=== PATIENT | female | born 1955 | race Caucasian/White ===

== ENCOUNTER → 2017-04-28 | Outpatient (CLI) | payer OTHER ==
[~2017-04-28] MED LIST: ATOR-22 PO; B-COTAB18 PO; DOXY100T PO; GABA-113 PO; GABA1CAP5 PO; LSN/10125 PO; MULT-506 PO; SERT-234 PO; THIA100T11 PO
[2017-04-28 10:57] LABS: BASO % 0.5 %; BASO ABS # 0.05 K/uL (0-0.2); COMPLETE YES; EOS % 6.9 %; HEMATOCRIT 40.1 % (37-47); IG% 0.3 %; LYMPH % 15.9 %; LYMPH ABS # 1.59 K/uL (1.2-3.4); MEAN CELL VOLUME 96.4 fL (80-100); MEAN CORPUSCULAR HEMOGLOBIN 32.5 pg (25-34); MEAN CORPUSCULAR HGB CONC 33.7 g/dl (32-36); MEAN PLATELET VOLUME 10.7 fL (7.4-10.4); MONO % 7.1 %; NEUT % 69.3 %; PLATELET COUNT 231 K/uL (130-400); RED BLOOD COUNT 4.16 M/uL (4.2-5.4); WHITE BLOOD COUNT 10.01 K/uL (4.8-10.8)
[2017-04-28 11:05] LABS: ESTIMATED AVERAGE GLUCOSE 217 mg/dl; HA1C FLAG Normal (Normal)
[2017-04-28 11:34] LABS: ALT/SGPT 58 U/L (12-78); AST/SGOT 30 U/L (15-37); BLOOD UREA NITROGEN 22 mg/dl (7-18); BUN/CREATININE RATIO 24.6 (10-20); CALCIUM 8.5 mg/dl (8.5-10.1); CARBON DIOXIDE 29 mmol/L (21-32); CHLORIDE 101 mmol/L (98-107); CHOLESTEROL 228 mg/dl (0-200); CREATININE 0.91 mg/dl (0.60-1.20); GLUCOSE 228 mg/dl (70-99); POTASSIUM 4.4 mmol/L (3.5-5.1); SODIUM 138 mmol/L (136-145); TRIGLYCERIDES 242 mg/dl (0-150); VERY LOW DENSITY LIPOPROT CALC 48 mg/dl
[2017-04-28 11:44] LABS: ALB/GLOB RATIO 1.5 (0.9-2); ALKALINE PHOSPHATASE 96 U/L (45-117); CHOLESTEROL/HDL RATIO 3.9; HDL CHOLESTEROL 59 mg/dl; LDL CHOLESTEROL CALCULATED 121 mg/dl; TOTAL IRON BINDING CAPACITY 343 mcg/dl (250-450)
== END | disposition home or self-care (01) ==
LOC: C.LAB1850 10:04
PROVIDERS: ATTEND Physician Assistant
DX: I10 Essential (primary) hypertension (principal)

== ENCOUNTER → 2017-05-21 | Outpatient (CLI) | payer OTHER ==
--- NOTE | 2017-05-23 08:13 | MAMMOGRAPHY REPORT ---
BILATERAL DIGITAL SCREENING MAMMOGRAM TOMOSYNTHESIS WITH CAD: 05/21/2017 CLINICAL HISTORY: Routine screening. Patient has no complaints. TECHNIQUE: Breast tomosynthesis in addition to standard 2D mammography was performed. Current study was also evaluated with a Computer Aided Detection (CAD) system. COMPARISON: Comparison is made to exams dated: 09/23/2011 mammogram, 09/11/2010 mammogram - [facility], 02/24/2007, 02/24/2007 mammogram, and 12/28/2004 mammogram - [facility] nter. BREAST COMPOSITION: There are scattered areas of fibroglandular density in both breasts. FINDINGS: There are numerous benign-appearing round, punctate and coarse calcifications in the breast . Stable nodularity bilaterally. No suspicious spiculated or irregular mass, architectural distorti on or cluster of new, suspicious microcalcifications is seen. IMPRESSION: ACR BI-RADS CATEGORY 1: NEGATIVE There is no mammographic evidence of malignancy. A 1 year screening mammogram is recommended. The pa tient will receive written notification of the results. Approximately 10% of breast cancers are not detected with mammography. A negative mammographic report should not delay biopsy if a clinically suggestive mass is present. Lynda Murphy M.D. ay/:05/21/2017 15:41:36 Patternator: Mona Gamez, [facility] letter sent: Normal 1/2 BI-RADS Code: ACR BI-RADS Category 1: Negative
== END | disposition home or self-care (01) ==
LOC: C.MAMM 11:36
PROVIDERS: ATTEND Physician Assistant
DX: Z12.31 Encounter for screening mammogram for malignant neoplasm of breast (principal)

== ENCOUNTER → 2017-08-01 | Outpatient (CLI) | payer OTHER ==
[2017-08-01 12:52] LABS: HEMOGLOBIN A1C 8.2 % (4.5-5.6)
[2017-08-01 13:11] LABS: ALBUMIN 3.7 gm/dl (3.4-5.0); ALT/SGPT 45 U/L (12-78); AST/SGOT 25 U/L (15-37); BLOOD UREA NITROGEN 32 mg/dl (7-18); CALCIUM 8.5 mg/dl (8.5-10.1); CARBON DIOXIDE 29 mmol/L (21-32); CREATININE 1.44 mg/dl (0.60-1.20); GLUCOSE 235 mg/dl (70-99); SODIUM 134 mmol/L (136-145)
[2017-08-01 13:14] LABS: ALKALINE PHOSPHATASE 81 U/L (45-117); INFLUENZA B ANTIGEN Neg for Influ B (NEG); TOTAL PROTEIN 7.2 gm/dl (6.4-8.2)
== END | disposition home or self-care (01) ==
LOC: C.LAB 11:26
PROVIDERS: ATTEND Physician Assistant
DX: E11.9 Type 2 diabetes mellitus without complications (principal); R05 Cough

== ENCOUNTER 2017-08-25 14:01 | Emergency (ER) | payer OTHER ==
[~2017-08-25] VITALS: Ht 157.5 cm; Wt 93.3 kg
[~2017-08-25 14:01] MED LIST changes: +GABA-1220 PO; -GABA1CAP5 PO
[2017-08-25 14:06] VITALS: TEMP 37.3; Ht 157.5 cm; Wt 93.3 kg
--- NOTE | 2017-08-25 14:38 | EMERGENCY ROOM VISIT NOTE ---
History First contact with patient: 14:28 Chief Complaint: FLU LIKE SX Stated Complaint: FEVER, HEADACHE, LOWER BACK PAIN, SHAKING History of Present Illness The patient is a 61 year old female who presents to the Emergency Room with complaints of fever, headache x 1 day. Her symptoms started early this morning. She took some ibuprofen and woke up later in the morning still having a fever, headache and low back pain. She has doxycycline on hand for acne and took a dose this morning. She seemed to feel better; was able to go to the gym and work this morning. At around 1 pm, she started having chills. She went to a couple of urgent care but was not able to be seen, so she came to the ED. She currently denies shortness of breath, vomiting, diarrhea, URTI symptoms. She was recently diagnosed with diabetes and is on Glucophage. Her most recent A1c was 8.2- she will be seeing her PCP soon for follow up. Review of Systems See above for pertinent positives & negatives. A total of 10 systems reviewed and were otherwise negative. Past Medical/Surgical History Medical Problems: (1) Alcohol abuse (2) Alcohol dependence (3) Alcohol withdrawal syndrome (4) Benign hypertension (5) Benzodiazepine overdose (6) Depression (7) Drug overdose (8) Hyperglycemia (9) Hyperlipidemia Social History Smoking Status: Never Smoker Alcohol Use: heavy Drug Use: other Marital Status: single Housing Status: lives alone Occupation Status: unemployed Current/Historical Medications Scheduled Atorvastatin (Lipitor), 20 MG PO QAM B-Complex Vitamins (Vitamin B Complex), 1 TAB PO Q2D Cephalexin Monohydrate (Keflex), 500 MG PO BID Gabapentin (Neurontin), 300 MG PO TID Gabapentin (Neurontin), 1 CAP PO TID Hctz/Lisinopril (Lisinopril/Hctz 10/12.5 Mg), 1 TAB PO QAM Multivitamin (Multivitamin), 1 TAB PO QAM Sertraline (Zoloft), 200 MG PO QAM Thiamine Hcl (Vitamin B-1), 100 MG PO QAM Scheduled PRN Doxycycline Hyclate (Doxycycline Hyclate), 1 TAB PO BID PRN for ACNE TX Ibuprofen (Advil), 400 MG PO Q6 PRN for Headache or Pain Physical Exam Vital Signs Date Time Temp Pulse Resp B/P (MAP) Pulse Ox O2 Delivery O2 Flow Rate FiO2 08/25/17 17:58 95 18 128/73 95 08/25/17 16:13 88 18 139/70 96 Room Air 08/25/17 14:06 37.3 126 18 124/75 96 Room Air Physical Exam GENERAL: Patient is awake alert in no acute distress patient is resting comfortably EYES: The conjunctivae are clear. The pupils are round and reactive. EARS, NOSE, MOUTH AND THROAT: The nose is without any evidence of any deformity. Mucous membranes are moist tongue is midline NECK: The neck is nontender and supple. RESPIRATORY: Normal respiratory effort is noted there is no evidence of wheezing rhonchi or rales CARDIOVASCULAR: Tachycardic, no murmurs rubs or gallops normal S1 normal S2 GASTROINTESTINAL: The abdomen is soft. Bowel sounds are present in all quadrants. Abdomen is nontender PELVIS: The Pelvis is stable. No tenderness to palpation is noted. BACK: No CVA tenderness MUSCULOSKELETAL/EXTREMITIES: There is no evidence of gross deformity full range of motion is noted in the hips and shoulders SKIN: There is no obvious evidence of any rash. Medical Decision & Procedures Laboratory Results 08/25/17 15:13 Red Blood Count 3.56, Mean Corpuscular Volume 94.1, Mean Corpuscular Hemoglobin 32.3, Mean Corpuscular Hemoglobin Concent 34.3, Mean Platelet Volume 10.7, Neutrophils (%) (Auto) 87.2, Lymphocytes (%) (Auto) 4.1, Monocytes (%) (Auto) 7.1, Eosinophils (%) (Auto) 0.9, Basophils (%) (Auto) 0.2, Neutrophils # (Auto) 9.52, Lymphocytes # (Auto) 0.45, Monocytes # (Auto) 0.77, Eosinophils # (Auto) 0.10, Basophils # (Auto) 0.02 08/25/17 15:13 Test 08/25/17 14:13 08/25/17 15:03 08/25/17 15:13 08/25/17 16:20 Bedside Glucose 290 mg/dl (70-90) Influenza Type A Antigen Neg for Influ A (NEG) Influenza Type B Antigen Neg for Influ B (NEG) White Blood Count 10.92 K/uL (4.8-10.8) Red Blood Count 3.56 M/uL (4.2-5.4) Hemoglobin 11.5 g/dL (12.0-16.0) Hematocrit 33.5 % (37-47) Mean Corpuscular Volume 94.1 fL (80-100) Mean Corpuscular Hemoglobin 32.3 pg (25-34) Mean Corpuscular Hemoglobin Concent 34.3 g/dl (32-36) Platelet Count 160 K/uL (130-400) Mean Platelet Volume 10.7 fL (7.4-10.4) Neutrophils (%) (Auto) 87.2 % Lymphocytes (%) (Auto) 4.1 % Monocytes (%) (Auto) 7.1 % Eosinophils (%) (Auto) 0.9 % Basophils (%) (Auto) 0.2 % Neutrophils # (Auto) 9.52 K/uL (1.4-6.5) Lymphocytes # (Auto) 0.45 K/uL (1.2-3.4) Monocytes # (Auto) 0.77 K/uL (0.11-0.59) Eosinophils # (Auto) 0.10 K/uL (0-0.5) Basophils # (Auto) 0.02 K/uL (0-0.2) RDW Standard Deviation 43.1 fL (36.4-46.3) RDW Coefficient of Variation 12.7 % (11.5-14.5) Immature Granulocyte % (Auto) 0.5 % Immature Granulocyte # (Auto) 0.06 K/uL (0.00-0.02) Anion Gap 11.0 mmol/L (3-11) Est Creatinine Clear Calc Drug Dose 33.6 ml/min Estimated GFR () 33.0 Estimated GFR (Non- 28.5 BUN/Creatinine Ratio 16.1 (10-20) Calcium Level 8.6 mg/dl (8.5-10.1) Total Bilirubin 0.7 mg/dl (0.2-1) Aspartate Amino Transf (AST/SGOT) 13 U/L (15-37) Alanine Aminotransferase (ALT/SGPT) 29 U/L (12-78) Alkaline Phosphatase 75 U/L (45-117) Total Protein 6.7 gm/dl (6.4-8.2) Albumin 3.2 gm/dl (3.4-5.0) Globulin 3.5 gm/dl (2.5-4.0) Albumin/Globulin Ratio 0.9 (0.9-2) Urine Color YELLOW Urine Appearance CLOUDY (CLEAR) Urine pH 5.0 (4.5-7.5) Urine Specific [place] 1.020 (1.000-1.030) Urine Protein 1+ (NEG) Urine Glucose (UA) 3+ (NEG) Urine Ketones TRACE (NEG) Urine Occult Blood 2+ (NEG) Urine Nitrite NEG (NEG) Urine Bilirubin NEG (NEG) Urine Urobilinogen NEG (NEG) Urine Leukocyte Esterase SMALL (NEG) Urine WBC (Auto) 10-30 /hpf (0-5) Urine RBC (Auto) 5-10 /hpf (0-4) Urine Hyaline Casts (Auto) 10-30 /lpf (0-5) Urine Epithelial Cells (Auto) 5-10 /lpf (0-5) Urine Bacteria (Auto) 4+ (NEG) Medications Administered Medications (Trade) Dose Ordered Sig/Miranda Route Start Time Stop Time Status Last Admin Dose Admin Acetaminophen (Tylenol Tab) 650 mg NOW STAT PO 08/25/17 14:53 08/25/17 14:55 DC 08/25/17 15:24 650 MG Sodium Chloride 500 ml @ 999 mls/hr Q31M IV 08/25/17 15:00 08/25/17 18:27 DC 08/25/17 15:25 999 MLS/HR Sodium Chloride 500 ml @ 999 mls/hr Q31M IV 08/25/17 16:15 08/25/17 18:27 DC 08/25/17 17:04 999 MLS/HR Potassium Chloride (Klor-Con Tab) 40 meq NOW STAT PO 08/25/17 16:09 08/25/17 16:10 DC 08/25/17 17:03 40 MEQ Ceftriaxone Sodium 1 gm/ Dextrose 50 ml @ 100 mls/hr ONE STAT IV 08/25/17 17:02 08/25/17 17:31 DC 08/25/17 17:14 100 MLS/HR ED Course 1430: The patient was evaluated in room A11A. 1500: Tylenol 650 mg PO and 500 ml NSS were ordered 1600: The patient was reassessed and results of bloodwork were discussed. 1615: 40 meq of KCL and 500 ml NSS were ordered 1700: Patient advised of Urine results. 1 gm of IV rocephin given. Discharge plans discussed. Medical Decision This is a 61 y/o F who presents with 1 day history of fever, chills and back ache. DDx considered include viral illness, sepsis, pneumonia, UTI, influenza etc. Influenza testing was negative. She had borderline leucocytosis. Her creatinine was 1.8. Potassium was 3.4 and sodium was 131. EKG was normal. She was given two boluses of 500 ml of NSS. She was also given 40 meq of KCL. There has been some concern outpatient for worsening renal function and is reportedly being evaluated (she has follow up scheduled). Her blood sugars were elevated between 250-300. However she reports having missed her metformin this morning. She is working with her PCP to lower her A1C. Her elevated blood sugars may be contributing to dehydration. She was also tachycardic but this improved with hydration. Her Urinalysis was also concerning for a UTI, therefore she was given a dose of IV rocephin and given Keflex for outpatient treatment. She was advised to follow up with her PCP in 2-3 days for a recheck of her kidney function. Blood Pressure Screening Patient's blood pressure: Normal blood pressure Impression Primary Impression: UTI (urinary tract infection) Additional Impressions: CKD (chronic kidney disease) stage 3, GFR 30-59 ml/min Fever Departure Information Prescriptions Cephalexin Monohydrate (KEFLEX) 500 Mg Cap 500 MG PO BID for 7 Days, #14 CAP Prov: Cristal Kelly MD 08/25/17 Referrals Marcos North M.D. (PCP) Patient Instructions [facility] Problem Qualifiers
[2017-08-25] MEDS ORDERED: ACETAMINOPHEN 325 MG TAB PO STA (14:53)
[2017-08-25] MEDS ORDERED: SODIUM CHLORIDE 0.9% 500ML 500 ML IV SCH ×2 (15:00→16:15)
[2017-08-25 15:25] LABS: BASO % 0.2 %; BASO ABS # 0.02 K/uL (0-0.2); EOS % 0.9 %; HEMATOCRIT 33.5 % (37-47); HEMOGLOBIN 11.5 g/dL (12.0-16.0); IG# 0.06 K/uL (0.00-0.02); LYMPH % 4.1 %; LYMPH ABS # 0.45 K/uL (1.2-3.4); MEAN CELL VOLUME 94.1 fL (80-100); MEAN CORPUSCULAR HEMOGLOBIN 32.3 pg (25-34); MEAN CORPUSCULAR HGB CONC 34.3 g/dl (32-36); MEAN PLATELET VOLUME 10.7 fL (7.4-10.4); MONO % 7.1 %; MONO ABS # 0.77 K/uL (0.11-0.59); NEUT % 87.2 %; NEUT ABS # 9.52 K/uL (1.4-6.5); PLATELET COUNT 160 K/uL (130-400); RED CELL DISTRIBUTION WIDTH CV 12.7 % (11.5-14.5); RED CELL DISTRIBUTION WIDTH SD 43.1 fL (36.4-46.3); WHITE BLOOD COUNT 10.92 K/uL (4.8-10.8)
[2017-08-25 15:51] LABS: ALBUMIN 3.2 gm/dl (3.4-5.0); CALCIUM 8.6 mg/dl (8.5-10.1); CREATININE 1.87 mg/dl (0.60-1.20); POTASSIUM 3.4 mmol/L (3.5-5.1)
[2017-08-25 15:54] LABS: TOTAL PROTEIN 6.7 gm/dl (6.4-8.2)
[2017-08-25 15:58] LABS: INFLUENZA B ANTIGEN Neg for Influ B (NEG)
[2017-08-25] MEDS ORDERED: IBUP-1050 PO (16:06)
[2017-08-25] MEDS ORDERED: POTASSIUM CHLORIDE 20 MEQ TABCR PO STA (16:09)
--- NOTE | 2017-08-25 16:52 | EMERGENCY ROOM VISIT NOTE ---
History Report prepared by Agueda: Ayana Peralta Under the Supervision of: Dr. Kiet Juarez M.D. First contact with patient: 14:27 Chief Complaint: FLU LIKE SX Stated Complaint: FEVER, HEADACHE, LOWER BACK PAIN, SHAKING History of Present Illness The patient is a 61 year old female who presents to the Emergency Room with complaints of persistent flu-like symptoms since last night. She states that she had a fever and feels weak. She reports a 30 minute episode of shivering and chills and was concerned. She states that she began to feel weak after the shivering. She took Tylenol for the fever. She states that she had some Doxycycline for acne and decided to take it as well. She reports low back pain. She denies any chest pain, shortness of breath, nausea, vomiting, or diarrhea. She has a history of DM, HTN, depression, and anxiety. Source of History: patient Onset: since last night Position: other (global ) Quality: other (flu-like symptoms) Timing: other (persistent) Associated Symptoms: + fevers, + chills, + back pain (low), + weakness, No chest pain, No SOB, No nausea, No vomiting, No diarrhea Note: She notes shivering. Review of Systems See HPI for pertinent positives & negatives. A total of 10 systems reviewed and were otherwise negative. Past Medical & Surgical Medical Problems: (1) Alcohol abuse (2) Alcohol dependence (3) Alcohol withdrawal syndrome (4) Benign hypertension (5) Benzodiazepine overdose (6) Depression (7) Drug overdose (8) Hyperglycemia (9) Hyperlipidemia Family History FH: heart disease Social History Smoking Status: Never Smoker Smokeless Tobacco Use: No Alcohol Use: heavy Drug Use: other Marital Status: single Housing Status: lives alone Occupation Status: unemployed Current/Historical Medications Scheduled Atorvastatin (Lipitor), 20 MG PO QAM B-Complex Vitamins (Vitamin B Complex), 1 TAB PO Q2D Cephalexin Monohydrate (Keflex), 500 MG PO BID Gabapentin (Neurontin), 300 MG PO TID Gabapentin (Neurontin), 1 CAP PO TID Hctz/Lisinopril (Lisinopril/Hctz 10/12.5 Mg), 1 TAB PO QAM Multivitamin (Multivitamin), 1 TAB PO QAM Sertraline (Zoloft), 200 MG PO QAM Thiamine Hcl (Vitamin B-1), 100 MG PO QAM Scheduled PRN Doxycycline Hyclate (Doxycycline Hyclate), 1 TAB PO BID PRN for ACNE TX Ibuprofen (Advil), 400 MG PO Q6 PRN for Headache or Pain Allergies Coded Allergies: No Known Allergies (Verified , 02/26/16) Physical Exam Vital Signs Date Time Temp Pulse Resp B/P (MAP) Pulse Ox O2 Delivery O2 Flow Rate FiO2 08/25/17 17:58 95 18 128/73 95 08/25/17 16:13 88 18 139/70 96 Room Air 08/25/17 14:06 37.3 126 18 124/75 96 Room Air Physical Exam GENERAL: Patient is in no acute distress. HEENT: No acute trauma, normocephalic atraumatic, mucous membranes moist, no nasal congestion, no scleral icterus. No throat erythema or exudate. NECK: No stridor, no adenopathy, no meningismus, trachea is midline. LUNGS: Clear to auscultation bilaterally, no wheeze, no rhonchi, breath sounds equal. HEART: Tachycardic rate with regular rhythm, no murmurs. ABDOMEN: Soft, nontender, bowel sounds positive, no hernias, no peritonitis. EXTREMITIES: No cyanosis or edema, full range of motion of all the joints without pain or difficulty, no signs for acute trauma. NEUROLOGIC: Oriented x 3, no acute motor or sensory deficits, no focal weakness. SKIN: No rash, no jaundice, no diaphoresis. Medical Decision & Procedures Laboratory Results 08/25/17 15:13 Red Blood Count 3.56, Mean Corpuscular Volume 94.1, Mean Corpuscular Hemoglobin 32.3, Mean Corpuscular Hemoglobin Concent 34.3, Mean Platelet Volume 10.7, Neutrophils (%) (Auto) 87.2, Lymphocytes (%) (Auto) 4.1, Monocytes (%) (Auto) 7.1, Eosinophils (%) (Auto) 0.9, Basophils (%) (Auto) 0.2, Neutrophils # (Auto) 9.52, Lymphocytes # (Auto) 0.45, Monocytes # (Auto) 0.77, Eosinophils # (Auto) 0.10, Basophils # (Auto) 0.02 08/25/17 15:13 Test 08/25/17 14:13 08/25/17 15:03 08/25/17 15:13 08/25/17 16:20 Bedside Glucose 290 mg/dl (70-90) Influenza Type A Antigen Neg for Influ A (NEG) Influenza Type B Antigen Neg for Influ B (NEG) White Blood Count 10.92 K/uL (4.8-10.8) Red Blood Count 3.56 M/uL (4.2-5.4) Hemoglobin 11.5 g/dL (12.0-16.0) Hematocrit 33.5 % (37-47) Mean Corpuscular Volume 94.1 fL (80-100) Mean Corpuscular Hemoglobin 32.3 pg (25-34) Mean Corpuscular Hemoglobin Concent 34.3 g/dl (32-36) Platelet Count 160 K/uL (130-400) Mean Platelet Volume 10.7 fL (7.4-10.4) Neutrophils (%) (Auto) 87.2 % Lymphocytes (%) (Auto) 4.1 % Monocytes (%) (Auto) 7.1 % Eosinophils (%) (Auto) 0.9 % Basophils (%) (Auto) 0.2 % Neutrophils # (Auto) 9.52 K/uL (1.4-6.5) Lymphocytes # (Auto) 0.45 K/uL (1.2-3.4) Monocytes # (Auto) 0.77 K/uL (0.11-0.59) Eosinophils # (Auto) 0.10 K/uL (0-0.5) Basophils # (Auto) 0.02 K/uL (0-0.2) RDW Standard Deviation 43.1 fL (36.4-46.3) RDW Coefficient of Variation 12.7 % (11.5-14.5) Immature Granulocyte % (Auto) 0.5 % Immature Granulocyte # (Auto) 0.06 K/uL (0.00-0.02) Anion Gap 11.0 mmol/L (3-11) Est Creatinine Clear Calc Drug Dose 33.6 ml/min Estimated GFR () 33.0 Estimated GFR (Non- 28.5 BUN/Creatinine Ratio 16.1 (10-20) Calcium Level 8.6 mg/dl (8.5-10.1) Total Bilirubin 0.7 mg/dl (0.2-1) Aspartate Amino Transf (AST/SGOT) 13 U/L (15-37) Alanine Aminotransferase (ALT/SGPT) 29 U/L (12-78) Alkaline Phosphatase 75 U/L (45-117) Total Protein 6.7 gm/dl (6.4-8.2) Albumin 3.2 gm/dl (3.4-5.0) Globulin 3.5 gm/dl (2.5-4.0) Albumin/Globulin Ratio 0.9 (0.9-2) Urine Color YELLOW Urine Appearance CLOUDY (CLEAR) Urine pH 5.0 (4.5-7.5) Urine Specific [place] 1.020 (1.000-1.030) Urine Protein 1+ (NEG) Urine Glucose (UA) 3+ (NEG) Urine Ketones TRACE (NEG) Urine Occult Blood 2+ (NEG) Urine Nitrite NEG (NEG) Urine Bilirubin NEG (NEG) Urine Urobilinogen NEG (NEG) Urine Leukocyte Esterase SMALL (NEG) Urine WBC (Auto) 10-30 /hpf (0-5) Urine RBC (Auto) 5-10 /hpf (0-4) Urine Hyaline Casts (Auto) 10-30 /lpf (0-5) Urine Epithelial Cells (Auto) 5-10 /lpf (0-5) Urine Bacteria (Auto) 4+ (NEG) Laboratory results reviewed by me. Medications Administered Medications (Trade) Dose Ordered Sig/Miranda Route Start Time Stop Time Status Last Admin Dose Admin Acetaminophen (Tylenol Tab) 650 mg NOW STAT PO 08/25/17 14:53 08/25/17 14:55 DC 08/25/17 15:24 650 MG Sodium Chloride 500 ml @ 999 mls/hr Q31M IV 08/25/17 15:00 09/24/17 14:59 08/25/17 15:25 999 MLS/HR Sodium Chloride 500 ml @ 999 mls/hr Q31M IV 08/25/17 16:15 09/24/17 16:14 08/25/17 17:04 999 MLS/HR Potassium Chloride (Klor-Con Tab) 40 meq NOW STAT PO 08/25/17 16:09 08/25/17 16:10 DC 08/25/17 17:03 40 MEQ Ceftriaxone Sodium 1 gm/ Dextrose 50 ml @ 100 mls/hr ONE STAT IV 08/25/17 17:02 08/25/17 17:31 DC 08/25/17 17:14 100 MLS/HR ECG Per My Interpretation Indication: other (flu-like symptoms) Rate (beats per minute): 96 Rhythm: normal sinus Findings: no ectopy (No PVCs), other (No ST elevation) Change: Patient's electrocardiogram interpreted by me. ED Course 1447: The patient was evaluated in room A11A. A complete history and physical exam was performed. 1453: Ordered Tylenol 650 mg PO 1500: Ordered Sodium Chloride 500 ml @ 999 mls/hr IV 1605: Dr. Kelly, resident reassessed the patient at this time. She is feeling better and resting comfortably. I discussed the results and treatment plan with the patient. I answered all pertaining questions that she had. She expressed understanding and verbalized agreement. The patient will be discharged home. 1609: Ordered Potassium Chloride 40 meq PO 1615: Ordered Sodium Chloride 500 ml @ 999 mls/hr IV 1702: Ordered Ceftriaxone Sodium 1 gm/Dextrose 50 ml @ 100 mls/hr IV Medical Decision The patient is a 61 year old female who presents to the ED with complaints of flu-like symptoms. Differential diagnoses considered include influenza/flu- like illness, UTI, PNA, dehydration, anemia, and electrolyte imbalance. There is a mild leukocytosis, this could be consistent with infection. No concerning anemia. Renal panel testing shows some renal insufficiency/ dehydration, glucose somewhat elevated. No hepatitis. Influenza testing returned negative. EKG showed a normal sinus rhythm, no acute ischemia. Urinalysis does suggest infection, urine culture is pending. The patient received IV saline for hydration. She was given IV ceftriaxone as antibiotic coverage. She received oral Tylenol and oral potassium. The patient is stable for discharge. She is being discharged on Keflex. Close family doctor follow-up was suggested. She will need to have her creatinine rechecked. If things are worsening or escalating, she needs to return for reassessment. Medication Reconcilliation Current Medication List: was personally reviewed by me Blood Pressure Screening Patient's blood pressure: Normal blood pressure Impression Primary Impression: Fever Additional Impressions: Dehydration Chills UTI (urinary tract infection) Scribe Attestation The scribe's documentation has been prepared under my direction and personally reviewed by me in its entirety. I confirm that the note above accurately reflects all work, treatment, procedures, and medical decision making performed by me. Departure Information Dispostion Home / Self-Care Prescriptions Cephalexin Monohydrate (KEFLEX) 500 Mg Cap 500 MG PO BID for 7 Days, #14 CAP Prov: Cristal Kelly MD 08/25/17 Referrals Marcos North M.D. (PCP) Forms HOME CARE DOCUMENTATION FORM, IMPORTANT VISIT INFORMATION Patient Instructions My [facility] Additional Instructions You were seen in the ED for Fever and Back pain. Your Urine sample showed a urinary tract infection. You were given a dose of IV Antibiotics. Please continue the course of antibiotics as prescribed. Your kidney function was noted to be abnormal. You were given IV fluids. Please stay hydrated. Follow up with your PCP in 1-2 days and have your Kidney function rechecked. If you experience any worsening of symptoms, please see your PCP or come back to the ER. If you experience any chest pain or shortness of breath, please come to the ER. Problem Qualifiers
[2017-08-25] MEDS ORDERED: CEFTRIAXONE SOD INJ 1 GM in DEXTROSE 5% ADD-VANTAGE 50ML 50 ML IV STA (17:02)
[2017-08-25] MEDS ORDERED: CEFTRIAXONE SOD INJ 1 GM ADDVIAL ONE (17:08)
[2017-08-25] MEDS ORDERED: CEPH500C2 PO (17:18)
[2017-08-25 17:58] VITALS: BP 128/73; PULSE 95; O2SAT 95
--- NOTE | 2017-08-27 14:34 | Pharmacy Progress Note ---
ED Pharmacist Culture FollowUp Date of Service: Aug 27, 2017. Patient was sent home with a prescription for Keflex 500mg PO BID x 7 days, which should cover the kleb pneumoniae growing from the patient's URINE culture.
[2017-09-01] MEDS ORDERED: LPR25 PO (14:08)
[2017-09-01] MEDS ORDERED: ASPEC81 PO (14:08)
[2017-09-01] MEDS ORDERED: AZIT500T PO (14:08)
[2017-09-01] MEDS ORDERED: FURO-85 PO (14:23)
[2017-09-01] MEDS ORDERED: MCRK20 PO (14:23)
== END 2017-08-25 17:59 | disposition home or self-care (01) ==
LOC: C.EDB 14:04 → C.EDA 17:59
DX: E86.0 Dehydration (principal); N39.0 Urinary tract infection, site not specified; R50.9 Fever, unspecified; E11.9 Type 2 diabetes mellitus without complications; Z79.899 Other long term (current) drug therapy; I10 Essential (primary) hypertension; F41.8 Other specified anxiety disorders

== ENCOUNTER 2017-08-27 13:16 | Inpatient (IN) | payer OTHER ==
[~2017-08-27] VITALS: Ht 157.5 cm; Wt 93.0 kg
[~2017-08-27 13:16] MED LIST changes: +CEPH500C2 PO; +IBUP-1050 PO
[2017-08-27] MEDS ORDERED: SODIUM CHLORIDE 0.9% 1000ML 2,000 ML IV STA (14:13)
[2017-08-27 14:42] LABS: INR 0.9 (0.9-1.1)
[2017-08-27 14:51] LABS: ALBUMIN 2.5 gm/dl (3.4-5.0); CALCIUM 8.4 mg/dl (8.5-10.1); CREATININE 1.29 mg/dl (0.60-1.20); POTASSIUM 3.6 mmol/L (3.5-5.1)
[2017-08-27 14:55] LABS: BASO % 0.1 %; BASO ABS # 0.02 K/uL (0-0.2); EOS % 1.6 %; EOS ABS # 0.22 K/uL (0-0.5); HEMATOCRIT 31.4 % (37-47); HEMOGLOBIN 11.1 g/dL (12.0-16.0); IG# 0.06 K/uL (0.00-0.02); LYMPH % 6.6 %; LYMPH ABS # 0.89 K/uL (1.2-3.4); MEAN CELL VOLUME 92.6 fL (80-100); MEAN CORPUSCULAR HEMOGLOBIN 32.7 pg (25-34); MEAN CORPUSCULAR HGB CONC 35.4 g/dl (32-36); MEAN PLATELET VOLUME 11.2 fL (7.4-10.4); MONO % 7.4 %; MONO ABS # 0.99 K/uL (0.11-0.59); NEUT % 83.9 %; NEUT ABS # 11.24 K/uL (1.4-6.5); PLATELET COUNT 158 K/uL (130-400); RED CELL DISTRIBUTION WIDTH SD 43.9 fL (36.4-46.3); WHITE BLOOD COUNT 13.42 K/uL (4.8-10.8)
[2017-08-27 14:59] LABS: TOTAL PROTEIN 6.5 gm/dl (6.4-8.2)
--- NOTE | 2017-08-27 15:02 | EMERGENCY ROOM VISIT NOTE ---
ED Visit Note First contact with patient: 14:03 CHIEF COMPLAINT: Weakness, hypotension HISTORY OF PRESENTING ILLNESS: This is a 61-year-old female who presents to the emergency department with complaint of generalized weakness and fatigue for the past 2-3 days. She states that she started feeling ill Friday night with fevers , headaches, and low back pain, she was seen in the emergency department the next day and was diagnosed with a UTI and she states she was given a dose of Rocephin and was placed on Keflex. She states she has still had intermittent chills and low-grade fevers, body aches, and has been feeling very fatigued and weak since yesterday. Today she went to see her primary care provider for follow-up and they noted a blood pressure 84/50, so she was sent to the emergency department for additional evaluation. She states since this morning she has noticed some aching chest pain and shortness of breath with exertion, she states that the pain and shortness of breath completely resolved when she is resting. She has had some associated dizziness/lightheadedness, but denies any syncope or falls. She denies any vision changes, neck pain or stiffness, abdominal pain, back pain, diarrhea, or rash. REVIEW OF SYSTEMS: A complete 10 point review of systems was reviewed with the patient with pertinent positives and negatives as per history of present illness. All else were negative. PAST MEDICAL HISTORY: Reviewed in chart. FAMILY HISTORY: No family history of cardiac disease SOCIAL HISTORY: Lives at home. Denies tobacco use, reports occasional alcohol use and reports a history of alcohol abuse, denies any recreational drug use. ALLERGIES: No known allergies. PHYSICAL EXAM: CONSTITUTIONAL: Pleasant and cooperative. No acute distress. Mildly dehydrated , but otherwise well appearing and well nourished. HEENT: Normocephalic, atraumatic. Pupils equal, round and reactive to light, EOMI. TMs normal. Pharynx normal. Tacky mucous membranes. NECK: Supple, full active range of motion without discomfort. No cervical adenopathy. RESPIRATORY: Clear to auscultation bilaterally with no wheezing, crackles, rhonchi or stridor. Equal expansion bilaterally. CARDIOVASCULAR: Regular rate and rhythm with no murmurs, rubs or gallops. Normal peripheral perfusion. No edema. GASTROINTESTINAL: Soft, nontender, nondistended. No palpable masses or HSM. Bowel sounds present in all quadrants. MUSCULOSKELETAL: Full range of motion of all joints without discomfort. INTEGUMENTARY: No rash or other significant dermatologic conditions noted. NEUROLOGIC: Alert and oriented X 4 with normal affect. Cranial nerves II-XII grossly intact. No focal neurologic deficits noted. 5/5 strength in all 4 extremities, normal sensation to light touch all 4 extremities. Normal speech. Normal gait observed. No facial droop, negative pronator drift. Normal [id number] testing. ED COURSE AND MEDICAL DECISION MAKING: CC: Patient presenting with complaint of weakness, dizziness, chest pain DIFFERENTIAL DIAGNOSIS: Includes, but not limited to hypotension, orthostasis, vasovagal, dehydration, ACS, PE, pneumonia, sepsis/bacteremia, electrolyte abnormality, among others. INTERPRETATION OF LABS: Leukocytosis with left shift (increased from previous labs 2 days ago), mild anemia, hyponatremia, hyperglycemia, no other significant electrolyte abnormality, renal function appears to be improving, normal liver enzymes and lipase. Coagulation factors within normal limits. TSH within normal limits. Significantly elevated troponin. UA consistent with UTI. IMAGING: CHEST 2 VIEWS ROUTINE CLINICAL HISTORY: 61 years-old Female presenting with SOB, chest pain, dizziness, fevers. TECHNIQUE: PA and lateral views of the chest were obtained. COMPARISON: None. FINDINGS: Atherosclerosis of the aortic arch. Cardiac silhouette top normal in size. Lungs and pleural spaces clear. Osseous structures normal. Upper abdomen normal. IMPRESSION: 1. No acute cardiopulmonary disease. EKG: Shows normal sinus rhythm with a rate of 96 bpm, no acute ischemic changes noted, and no significant change when compared to EKG of 02/09/2014, by my interpretation. MEDICATION RECONCILIATION: I attest that I have personally reviewed the patient 's current medication list. INITIAL VITAL SIGNS REVIEW: I reviewed the patient's initial vital signs and interpret them as follows: T: Afebrile; BP: Normotensive; HR: Within normal limits; RR: Within normal limits; Pulse Ox: Within normal limits on room air. Blood pressure screening: The patient was found to have normal blood pressure on screening and does not require follow-up for repeat blood pressure check. SUMMARY: Patient was evaluated at bedside, history and physical exam performed. Patient is alert and oriented, no acute distress, resting calmly in the stretcher. Patient denies any symptoms of chest pain, shortness of breath, or lightheadedness at this time. She does appear moderately dehydrated on exam. EKG reviewed at bedside, noting normal sinus rhythm with no acute ischemic changes. Review of the patient's recent chart shows urine culture positive for Klebsiella pneumoniae. Orders were placed at bedside for labs, UA and urine culture, blood culture 2, lactic acid, IV fluid bolus, EKG, chest x-ray to evaluate for cardiopulmonary disease. Patient discussed with Dr. Lima, who agrees with my assessment and plan. Labs and imaging reviewed as above, notable for elevated troponin, though patient continues to deny chest pain and EKG appears normal. Patient was given full-strength dose of chewable aspirin. Given the patient's risk factors of hypertension, diabetes, and hyperlipidemia, I am concerned for possibility of ACS. However, given her recent infection and concern for developing sepsis as well, this could also represent demand ischemia. I discussed the patient with Dr. Hughes, hospitalist, who agrees to evaluate the patient for admission. He agreed with holding IV heparin for now. Patient reassessed multiple times throughout ED stay, she remained stable, and and denies chest pain. Patient was updated on all results and plan for admission, she verbalized understanding and was in agreement with this plan. Patient was stable at time of admission. Problem List Medical Problems: (1) Anxiety Status: Chronic (2) Benzodiazepine overdose Status: Resolved (3) Depression Status: Chronic (4) Diabetes mellitus, type II Status: Chronic (5) H/O alcohol abuse Status: Chronic (6) HLD (hyperlipidemia) Status: Chronic (7) HTN (hypertension) Status: Chronic Current/Historical Medications Scheduled Atorvastatin (Lipitor), 20 MG PO DAILY Cephalexin Monohydrate (Keflex), 500 MG PO BID Gabapentin (Neurontin), 400 MG PO TID Gabapentin (Neurontin), 300 MG PO TID Hctz/Lisinopril (Lisinopril/Hctz 10/12.5 Mg), 1 TAB PO DAILY Metformin Hcl (Glucophage), 500 MG PO BID Multivitamin (Multivitamin), 1 TAB PO DAILY Sertraline (Zoloft), 200 MG PO DAILY Thiamine Hcl (Vitamin B-1), 1 TAB PO DAILY Allergies Coded Allergies: No Known Allergies (Verified , 08/27/17) Vital Signs Date Time Temp Pulse Resp B/P (MAP) Pulse Ox O2 Delivery O2 Flow Rate FiO2 08/27/17 17:10 37.2 08/27/17 16:49 89 16 140/86 98 Room Air 08/27/17 16:34 91 08/27/17 15:07 96 Room Air 08/27/17 14:40 79 119/73 96 Room Air 82 136/87 84 158/78 08/27/17 13:23 36.7 94 20 109/73 96 Room Air Laboratory Results 08/27/17 13:55 Red Blood Count 3.39, Mean Corpuscular Volume 92.6, Mean Corpuscular Hemoglobin 32.7, Mean Corpuscular Hemoglobin Concent 35.4, Mean Platelet Volume 11.2, Neutrophils (%) (Auto) 83.9, Lymphocytes (%) (Auto) 6.6, Monocytes (%) (Auto) 7.4, Eosinophils (%) (Auto) 1.6, Basophils (%) (Auto) 0.1, Neutrophils # (Auto) 11.24, Lymphocytes # (Auto) 0.89, Monocytes # (Auto) 0.99, Eosinophils # (Auto) 0.22, Basophils # (Auto) 0.02 08/27/17 13:55 Test 08/27/17 13:55 08/27/17 14:42 08/27/17 15:00 White Blood Count 13.42 K/uL (4.8-10.8) Red Blood Count 3.39 M/uL (4.2-5.4) Hemoglobin 11.1 g/dL (12.0-16.0) Hematocrit 31.4 % (37-47) Mean Corpuscular Volume 92.6 fL (80-100) Mean Corpuscular Hemoglobin 32.7 pg (25-34) Mean Corpuscular Hemoglobin Concent 35.4 g/dl (32-36) Platelet Count 158 K/uL (130-400) Mean Platelet Volume 11.2 fL (7.4-10.4) Neutrophils (%) (Auto) 83.9 % Lymphocytes (%) (Auto) 6.6 % Monocytes (%) (Auto) 7.4 % Eosinophils (%) (Auto) 1.6 % Basophils (%) (Auto) 0.1 % Neutrophils # (Auto) 11.24 K/uL (1.4-6.5) Lymphocytes # (Auto) 0.89 K/uL (1.2-3.4) Monocytes # (Auto) 0.99 K/uL (0.11-0.59) Eosinophils # (Auto) 0.22 K/uL (0-0.5) Basophils # (Auto) 0.02 K/uL (0-0.2) RDW Standard Deviation 43.9 fL (36.4-46.3) RDW Coefficient of Variation 13.0 % (11.5-14.5) Immature Granulocyte % (Auto) 0.4 % Immature Granulocyte # (Auto) 0.06 K/uL (0.00-0.02) Prothrombin Time 9.8 SECONDS (9.0-12.0) Prothromb Time International Ratio 0.9 (0.9-1.1) Activated Partial Thromboplast Time 30.0 SECONDS (21.0-31.0) Partial Thromboplastin Ratio 1.2 Anion Gap 11.0 mmol/L (3-11) Est Creatinine Clear Calc Drug Dose 48.3 ml/min Estimated GFR () 51.8 Estimated GFR (Non- 44.7 BUN/Creatinine Ratio 14.7 (10-20) Calcium Level 8.4 mg/dl (8.5-10.1) Magnesium Level 1.9 mg/dl (1.8-2.4) Total Bilirubin 0.5 mg/dl (0.2-1) Direct Bilirubin 0.1 mg/dl (0-0.2) Aspartate Amino Transf (AST/SGOT) 12 U/L (15-37) Alanine Aminotransferase (ALT/SGPT) 22 U/L (12-78) Alkaline Phosphatase 83 U/L (45-117) Total Protein 6.5 gm/dl (6.4-8.2) Albumin 2.5 gm/dl (3.4-5.0) Lipase 130 U/L (73-393) Beta-Hydroxybutyric Acid 1.08 mg/dL (0.2-2.81) Thyroid Stimulating Hormone (TSH) 2.660 uIu/ml (0.300-4.500) Lactic Acid Level 1.8 mmol/L (0.4-2.0) Urine Color YELLOW Urine Appearance CLOUDY (CLEAR) Urine pH 5.0 (4.5-7.5) Urine Specific [place] 1.026 (1.000-1.030) Urine Protein TRACE (NEG) Urine Glucose (UA) 3+ (NEG) Urine Ketones NEG (NEG) Urine Occult Blood 3+ (NEG) Urine Nitrite NEG (NEG) Urine Bilirubin NEG (NEG) Urine Urobilinogen NEG (NEG) Urine Leukocyte Esterase MODERATE (NEG) Urine WBC (Auto) >30 /hpf (0-5) Urine RBC (Auto) 0-4 /hpf (0-4) Urine Hyaline Casts (Auto) 1-5 /lpf (0-5) Urine Epithelial Cells (Auto) >30 /lpf (0-5) Urine Bacteria (Auto) NEG (NEG) Urine Pathogenic Casts /lpf (0) Urine Yeast (Auto) PRESENT (NONE PRSENT) Urine Opiates Screen NEG (NEG) Urine Methadone, Qualitative NEG (NEG) Urine Barbiturates NEG (NEG) Urine Phencyclidine (PCP) Level NEG (NEG) Ur Amphetamine/Methamphetamine NEG (NEG) MDMA (Ecstasy) Screen NEG (NEG) Urine Benzodiazepines Screen NEG (NEG) Urine Cocaine Metabolite NEG (NEG) Urine Marijuana (THC) NEG (NEG) Medications Administered Medications (Trade) Dose Ordered Sig/Miranda Route Start Time Stop Time Status Last Admin Dose Admin Sodium Chloride 1,000 ml @ 999 mls/hr Q1H1M STAT IV 08/27/17 15:09 08/27/17 16:09 DC 08/27/17 15:09 999 MLS/HR Aspirin (Aspirin Chew) 324 mg NOW STAT PO 08/27/17 15:20 08/27/17 15:22 DC 08/27/17 15:38 324 MG Acetaminophen (Tylenol Tab) 1,000 mg NOW STAT PO 08/27/17 17:15 08/27/17 17:16 DC 08/27/17 17:15 1,000 MG Departure Information Impression Primary Impression: Elevated troponin I level Additional Impressions: Weakness UTI (urinary tract infection) Dispostion Admitted as an inpatient Condition FAIR Referrals Yanira Ramires D.O. (PCP) Patient Instructions [facility] Problem Qualifiers Additional Impressions: UTI (urinary tract infection) Urinary tract infection type: site unspecified
[2017-08-27] MEDS ORDERED: SODIUM CHLORIDE 0.9% 1000ML 1,000 ML IV STA (15:09)
[2017-08-27] MEDS ORDERED: ASPIRIN 81 MG CHEW PO STA (15:20)
--- NOTE | 2017-08-27 15:28 | DIAGNOSTIC IMAGING REPORT ---
CHEST 2 VIEWS ROUTINE CLINICAL HISTORY: 61 years-old Female presenting with SOB, chest pain, dizziness, fevers. TECHNIQUE: PA and lateral views of the chest were obtained. COMPARISON: None. FINDINGS: Atherosclerosis of the aortic arch. Cardiac silhouette top normal in size. Lungs and pleural spaces clear. Osseous structures normal. Upper abdomen normal. IMPRESSION: 1. No acute cardiopulmonary disease. Electronically signed by: Harlan Ortega M.D. 08/27/2017 3:26 PM Dictated Date/Time: 08/27/2017 3:26 PM
[2017-08-27] MEDS ORDERED: GABA-113 PO (16:43)
[2017-08-27] MEDS ORDERED: LSN/10125 PO (16:43)
[2017-08-27] MEDS ORDERED: GABA-1220 PO (16:43)
[2017-08-27] MEDS ORDERED: GLC/500 PO (16:43)
[2017-08-27] MEDS ORDERED: MULT-506 PO (16:43)
[2017-08-27] MEDS ORDERED: THIA50TA3 PO (16:43)
[2017-08-27] MEDS ORDERED: CEPH500C2 PO (16:43)
[2017-08-27] MEDS ORDERED: SERT-234 PO (16:43)
[2017-08-27] MEDS ORDERED: ACETAMINOPHEN 500 MG TAB PO STA (17:15)
[2017-08-27] MEDS ORDERED: ALUMINUM/MAGNESIUM/SIMETH (MAALOX MAX) 30 ML UDC PO PRN (17:30)
[2017-08-27] MEDS ORDERED: ONDANSETRON INJ 2 MG/ML 2 ML VIAL IV PRN (17:30)
[2017-08-27] MEDS ORDERED: PHARMACY GLYCEMIC MGMT CONSULT PRN (17:47)
[2017-08-27] MEDS ORDERED: ATOR-54 PO (17:53)
[2017-08-27] MEDS ORDERED: NovoLOG PER UNIT CHARGE SC ONE (18:00)
--- NOTE | 2017-08-27 18:25 | History and Physical ---
History & Physical Date & Time of Service: Aug 27, 2017 at 17:59 Chief Complaint: Hypotenstion, Sob, Uti Primary Care Physician: Yanira Ramires D.O. History of Present Illness Source: patient, clinic records, hospital records This is a 61yo F with a PMH of DM II, HTN, HLD, depression, anxiety and other medical problems listed below who presents with SOB and chest pain that began this morning. Patient has been feeling poorly for the 4 days, with generalized weakness and fatigue. Started to experience chills on Friday (08/25) and came to ED and was diagnosed with a UTI. Urine culture grew klebsiella. Given a dose of rocephin and sent home on Keflex. Continued to feel poorly yesterday, with intermittent chills and body aches as well as chest discomfort and SOB with exertion. States that she only experiences these when she gets out of bed to use the restroom or get something to drink. Describes chest discomfort as a central, substernal, aching, 2/10 intensity with radiation to her jaw/teeth. Associated SOB but no diaphoresis, nausea, vomiting. No history of [place] or CHF. No family history of heart disease. Has experienced panic attacks and acid reflux in the past but states that current chest discomfort feels different. Established care with PCP Ike today and was found to be hypotensive and SOB. Was given IVF in clinic and had an EKG performed (normal sinus rhythm) before being sent to the ED for further evaluation. Currently endorses chills, fatigue, anxiety and SOB with exertion. Denies fever , URI symptoms, lightheadedness, headache, visual changes, CP, palpitations, abd pain, flank pain, nausea, vomiting, dysuria, diarrhea or LE swelling. Denies recent weight gain. Was recently diagnosed with DM II in Apr 2017 and was started on metformin. Past Medical/Surgical History Medical Problems: (1) Anxiety Status: Chronic (2) Benzodiazepine overdose Status: Resolved (3) Depression Status: Chronic (4) Diabetes mellitus, type II Status: Chronic (5) H/O alcohol abuse Status: Chronic (6) HLD (hyperlipidemia) Status: Chronic (7) HTN (hypertension) Status: Chronic Family History Stroke Social History Smoking Status: Former Smoker (Quit in 1978) Alcohol Use: occasionally (1-2 glasses of wine 3x/week ) Drug Use: other Marital Status: single Occupational Status: employed Immunizations History of Influenza Vaccine: N/A History of Tetanus Vaccine?: Yes Tetanus Immunization Date: Oct 21, 2006 History of Pneumococcal: No History of Hepatitis B Vaccine: No Allergies Coded Allergies: No Known Allergies (Verified , 08/27/17) Home Medications Scheduled Atorvastatin (Lipitor), 20 MG PO DAILY Cephalexin Monohydrate (Keflex), 500 MG PO BID Gabapentin (Neurontin), 400 MG PO TID Gabapentin (Neurontin), 300 MG PO TID Hctz/Lisinopril (Lisinopril/Hctz 10/12.5 Mg), 1 TAB PO DAILY Metformin Hcl (Glucophage), 500 MG PO BID Multivitamin (Multivitamin), 1 TAB PO DAILY Sertraline (Zoloft), 200 MG PO DAILY Thiamine Hcl (Vitamin B-1), 1 TAB PO DAILY Review of Systems Constitutional: + chills, + weakness, + fatigue, No fever, No sweats, No weight loss Eyes: No worsening of vision, No eye pain ENT: No hearing loss, No unusual epistaxis, No nasal symptoms, No sore throat Respiratory: + shortness of breath, + dyspnea on exertion, No cough, No sputum , No wheezing, No dyspnea at rest Cardiovascular: + chest pain, No orthopnea, No PND, No edema, No palpitations Abdomen: No pain, No nausea, No vomiting, No diarrhea, No constipation Musculoskeletal: No joint pain, No muscle pain Genitourinary - Female: No dysuria, No urinary frequency, No urinary urgency, No urinary incontinence Neurologic: No memory loss, No weakness, No numbness/tingling Integumentary: No rash, No itch, No new/changing skin lesions Physical Exam Vital Signs Date Time Temp Pulse Resp B/P (MAP) Pulse Ox O2 Delivery O2 Flow Rate FiO2 08/27/17 17:54 72 16 135/72 98 Room Air 08/27/17 17:10 37.2 08/27/17 16:49 89 16 140/86 98 Room Air 08/27/17 16:34 91 08/27/17 15:07 96 Room Air 08/27/17 14:40 79 119/73 96 Room Air 82 136/87 84 158/78 08/27/17 13:23 36.7 94 20 109/73 96 Room Air General Appearance: WD/WN, no apparent distress, + pertinent finding (Flushed ( chronic), breathing comfortably on room air ) Head: normocephalic, atraumatic Eyes: normal inspection, PERRL, sclerae normal ENT: normal ENT inspection, hearing grossly normal, pharynx normal (dry mucous membranes ) Neck: supple, thyroid normal, no JVD, trachea midline Respiratory/Chest: chest non-tender, lungs clear, normal breath sounds, no respiratory distress, no accessory muscle use Cardiovascular: regular rate, rhythm, no murmur, normal peripheral pulses Abdomen/GI: non tender, soft, no organomegaly Back: normal inspection, no CVA tenderness Extremities/Musculoskelatal: normal inspection, no calf tenderness, no pedal edema Neurologic/Psych: no motor/sensory deficits, alert, normal mood/affect, oriented x 3 Skin: warm/dry, no rash Diagnostics Laboratory Results Results Past 24 Hours Test 08/27/17 13:55 08/27/17 14:42 08/27/17 15:00 08/27/17 16:09 Range/Units White Blood Count 13.42 4.8-10.8 K/uL Red Blood Count 3.39 4.2-5.4 M/uL Hemoglobin 11.1 12.0-16.0 g/dL Hematocrit 31.4 37-47 % Mean Corpuscular Volume 92.6 80-100 fL Mean Corpuscular Hemoglobin 32.7 25-34 pg Mean Corpuscular Hemoglobin Concent 35.4 32-36 g/dl Platelet Count 158 130-400 K/uL Mean Platelet Volume 11.2 7.4-10.4 fL Neutrophils (%) (Auto) 83.9 % Lymphocytes (%) (Auto) 6.6 % Monocytes (%) (Auto) 7.4 % Eosinophils (%) (Auto) 1.6 % Basophils (%) (Auto) 0.1 % Neutrophils # (Auto) 11.24 1.4-6.5 K/uL Lymphocytes # (Auto) 0.89 1.2-3.4 K/uL Monocytes # (Auto) 0.99 0.11-0.59 K/uL Eosinophils # (Auto) 0.22 0-0.5 K/uL Basophils # (Auto) 0.02 0-0.2 K/uL RDW Standard Deviation 43.9 36.4-46.3 fL RDW Coefficient of Variation 13.0 11.5-14.5 % Immature Granulocyte % (Auto) 0.4 % Immature Granulocyte # (Auto) 0.06 0.00-0.02 K/uL Prothrombin Time 9.8 9.0-12.0 SECONDS Prothromb Time International Ratio 0.9 0.9-1.1 Activated Partial Thromboplast Time 30.0 21.0-31.0 SECONDS Partial Thromboplastin Ratio 1.2 Sodium Level 130 136-145 mmol/L Potassium Level 3.6 3.5-5.1 mmol/L Chloride Level 99 98-107 mmol/L Carbon Dioxide Level 20 21-32 mmol/L Anion Gap 11.0 3-11 mmol/L Blood Urea Nitrogen 19 7-18 mg/dl Creatinine 1.29 0.60-1.20 mg/dl Est Creatinine Clear Calc Drug Dose 48.3 ml/min Estimated GFR () 51.8 Estimated GFR (Non- 44.7 BUN/Creatinine Ratio 14.7 10-20 Random Glucose 343 70-99 mg/dl Calcium Level 8.4 8.5-10.1 mg/dl Magnesium Level 1.9 1.8-2.4 mg/dl Total Bilirubin 0.5 0.2-1 mg/dl Direct Bilirubin 0.1 0-0.2 mg/dl Aspartate Amino Transf (AST/SGOT) 12 15-37 U/L Alanine Aminotransferase (ALT/SGPT) 22 12-78 U/L Alkaline Phosphatase 83 45-117 U/L Troponin I 0.424 0.292 0-0.045 ng/ml Total Protein 6.5 6.4-8.2 gm/dl Albumin 2.5 3.4-5.0 gm/dl Lipase 130 73-393 U/L Beta-Hydroxybutyric Acid 1.08 0.2-2.81 mg/dL Thyroid Stimulating Hormone (TSH) 2.660 0.300-4.500 uIu/ml Lactic Acid Level 1.8 0.4-2.0 mmol/L Urine Color YELLOW Urine Appearance CLOUDY CLEAR Urine pH 5.0 4.5-7.5 Urine Specific Clarence 1.026 1.000-1.030 Urine Protein TRACE NEG Urine Glucose (UA) 3+ NEG Urine Ketones NEG NEG Urine Occult Blood 3+ NEG Urine Nitrite NEG NEG Urine Bilirubin NEG NEG Urine Urobilinogen NEG NEG Urine Leukocyte Esterase MODERATE NEG Urine WBC (Auto) >30 0-5 /hpf Urine RBC (Auto) 0-4 0-4 /hpf Urine Hyaline Casts (Auto) 1-5 0-5 /lpf Urine Epithelial Cells (Auto) >30 0-5 /lpf Urine Bacteria (Auto) NEG NEG Urine Pathogenic Casts 0 /lpf Urine Yeast (Auto) PRESENT NONE PRSENT Test 08/27/17 16:26 Range/Units Microbiology Results 08/27/17 Blood Culture, Received Pending 08/27/17 Blood Culture, Received Pending 08/27/17 Urine Culture, Received Pending Diagnostic Radiology CXR: IMPRESSION: 1. No acute cardiopulmonary disease. EKG Normal sinus rhythm Normal ECG Normal EKG Impression Assessment and Plan This is a 61yo F with a PMH of DM II, HTN, HLD, depression, anxiety and other medical problems listed below who presents with SOB and chest pain that began this morning. Chest pain, exertional SOB: -Started this AM -R/o ACS; risk factors include DM II, HTN, HLD -Initial troponin slightly elevated to 0.424. Repeat trop in ED decreased to 0.292 -Infection, poor PO intake could be contributing to trop elevation -EKG- normal sinus, no acute ischemic changes -CXR- No acute cardiopulmonary changes -Trend serial cardiac enzymes -Check echo -Repeat EKG in am UTI: -Diagnosed in ED of 08/25 -Discharged on keflex -Urine culture grew klebsiella -Wbc of 13.42 today (increased from 10.92 two days ago) -IV rocephin initiated -IVF resuscitation -Renal ultrasound to rule out stones, obstruction Hyperglycemia 2/2 DM II: -BG of 343 upon arrival -No anion gap, beta hydroxybutyric acid wnl -Recently diagnosed with DM II in Apr 2017 -Was started on metformin -Repeat a1c of 8.2 in Jul 2017 -Hold oral agents -Glycemic control consult -Diabetic diet -BSG checks AC HS NELL: -Baseline Cr ~0.9 -Cr elevated to 1.8 during recent ER visit -Cr decreased to 1.29 today -IVF resuscitation -Renal ultrasound to r/o obstruction -Hold lisinopril/hctz for now -Recheck BMP in AM HTN: -Hypotensive prior to arrival, BP normotensive with IVF resuscitation -Hold lisinopril/hctz in setting of NELL -Add additional agents if needed HLD: -Cont atorvastatin Depression, anxiety: -H/o overdose on benzodiazepines in the past -Stable currently -Cont home dose SSRI, gabapentin DVT Ppx: SQ heparin Code status: FULL PCP: Ike Dispo: Observation telemetry. Plan to return home once medically stable. Patient seen in collaboration with Dr Billings. Please see addendum. Resuscitation Status FULL VTE Prophylaxis Will order VTE Prophylaxis: Yes Note ATTENDING ADDENDUM Record reviewed. Patient interviewed and examined. Care coordinated with Ysabel Johnson PA-C. Please refer to her documentation for patient's history. Briefly, 61-year-old female with history of hypertension, dyslipidemia, diabetes. Diagnosed with Klebsiella UTI on 08/25/17 and prescribed treatment with cephalexin. Experiencing persistent fever, chills, malaise. No flank pain. Also notes midsternal chest pressure and dyspnea on exertion. No cardiac history. Seen in clinic earlier today and found to be hypotensive. Referred to ED. Received IV fluids with improved hemodynamics. Pain-free at time of my assessment. EXAM: General- no distress Lungs-mild wheezing, otherwise clear to auscultation; no respiratory distress Cardiovascular- RRR; I/ systolic murmur at base; no gallop; no JVD; no pretibial edema Abdomen- + bowel sounds, soft, nontender Back-no flank pain Extremities- no cyanosis; no calf tenderness Neuro- alert, oriented Skin- warm & dry DATA: Hemoglobin 11.1, white count 13,420, platelet count 158,000. Sodium 130, potassium 3.6, chloride 99, CO2 20, HEENT, creatinine 1.29, random glucose 343. Troponin 0 0.424. LFTs and lipase normal. Other lab studies as noted. Chest x-ray did not show any infiltrates, effusions, CHF. Renal ultrasound showed a left renal cyst, no calculi or hydronephrosis. EKG performed at 1501 reviewed and showed normal sinus rhythm at 90/minute, no acute ST or T-wave abnormalities. ASSESSMENT AND PLAN: Klebsiella UTI diagnosed 2 days prior to admission with persistent fever, chills , malaise despite appropriate antibiotic therapy. No apparent calculi on renal ultrasound. Change antibiotic therapy to IV ceftriaxone until symptoms improved. Blood pressure low in clinic today. Hemodynamically stable in the ED. Seems to be dehydrated. Does not appear to be septic. Continue IV fluids for dehydration. History of diabetes mellitus type 2 on oral therapy with metformin. Random blood sugar in ED 343. Check hemoglobin A1c. Pharmacy consult for glycemic management. Experiencing chest pain and dyspnea on exertion. Serum troponin elevated, but elevation could be nonspecific and related to infectious illness. No acute changes on EKG. Follow serial troponins and EKGs. Received aspirin in the ED. Add beta luis and/or IV heparin if symptoms worsen, troponins rise, or dynamic EKG changes are noted. Check lipid profile. Check d-dimer to screen for thromboembolic disease. Check echocardiogram. Consult Cardiology. Please refer to CRISTOBAL Johnson's documentation for discussion of other issues. Holland Hughes MD
--- NOTE | 2017-08-27 18:31 | DIAGNOSTIC IMAGING REPORT ---
EXAMINATION: RENAL ULTRASOUND CLINICAL HISTORY: R/o stones, obstruction COMPARISON STUDY: Outside CT scan performed September 2005 FINDINGS: The right kidney measures 12 cm. The left kidney measures 11.3 cm. There is no evidence of hydronephrosis. There is a 14 mm mid pole left renal cyst. No bladder masses were visualized. A right ureteral jet was visualized. The left ureteral jet was not identified IMPRESSION : 1. No evidence of hydronephrosis 2. 14 mm left renal cyst Electronically signed by: Tyrese Almendarez M.D. 08/27/2017 6:30 PM Dictated Date/Time: 08/27/2017 6:29 PM
[2017-08-27] MEDS ORDERED: IV FLUIDS COMPLETED PRN (19:15)
[2017-08-27 19:30] VITALS: BP 125/81; PULSE 96; TEMP 37.7; O2SAT 93; BMI 37.2
[2017-08-27] MEDS ORDERED: DEXTROSE 50% 50 ML SYR IV PRN (19:30)
[2017-08-27] MEDS ORDERED: GLUCOSE 40% GEL 15 GM TUBE PO PRN (19:30)
[2017-08-27] MEDS ORDERED: GLUCAGON FOR INJ 1 MG VIAL SQ PRN (19:30)
[2017-08-27] MEDS ORDERED: GLUCOSE 10 TABS/TUBE PO PRN (19:30)
[2017-08-27] MEDS: SODIUM CHLORIDE 0.9% 1000ML 1,000 ML IV SCH (20:07)
[2017-08-27] MEDS: CEFTRIAXONE SOD INJ 1 GM in DEXTROSE 5% ADD-VANTAGE 50ML 50 ML IV SCH (20:08)
[2017-08-27] MEDS: INSULIN ASPART 100 UNITS/ML 3 ML PEN SC SCH (20:20)
[2017-08-27] MEDS: GABAPENTIN 400 MG CAP PO SCH (20:22)
[2017-08-27] MEDS: GABAPENTIN 300 MG CAP PO SCH (20:22)
[2017-08-27] MEDS: ATORVASTATIN 20 MG TAB PO SCH (20:40)
[2017-08-27] MEDS: HEPARIN SOD 5000 UNIT/0.5 ML CARP SQ SCH (21:48)
[2017-08-27] MEDS: INSULIN GLARGINE SOLOSTAR 100 UNITS/ML 3 ML PEN SC SCH (21:48)
--- NOTE | 2017-08-27 22:03 | Pharmacy Progress Note ---
Glycemic Control Intl Consult Date of Service Aug 27, 2017. Scope Glycemic Pharmacist consulted by FLAQUITA Rodrigez on 08/27/17 for glycemic control and to write orders per [facility] inpatient glycemic control protocol Objective Weight (Kilograms): 92.00 Accuchecks BSG (last 24hrs): Test 08/27/17 13:55 08/27/17 17:41 Random Glucose 343 mg/dl (70-99) Bedside Glucose 239 mg/dl (70-90) Laboratory Data (last 24hrs) Test 08/27/17 13:55 Anion Gap 11.0 mmol/L BUN/Creatinine Ratio 14.7 Blood Urea Nitrogen 19 mg/dl Creatinine 1.29 mg/dl Potassium Level 3.6 mmol/L Sodium Level 130 mmol/L White Blood Count 13.42 K/uL Red Blood Count 3.39 M/uL Hemoglobin 11.1 g/dL Hematocrit 31.4 % Mean Corpuscular Volume 92.6 fL Mean Corpuscular Hemoglobin 32.7 pg Mean Corpuscular Hemoglobin Concent 35.4 g/dl Platelet Count 158 K/uL Mean Platelet Volume 11.2 fL Neutrophils (%) (Auto) 83.9 % Lymphocytes (%) (Auto) 6.6 % Monocytes (%) (Auto) 7.4 % Eosinophils (%) (Auto) 1.6 % Basophils (%) (Auto) 0.1 % Neutrophils # (Auto) 11.24 K/uL Lymphocytes # (Auto) 0.89 K/uL Monocytes # (Auto) 0.99 K/uL Eosinophils # (Auto) 0.22 K/uL Basophils # (Auto) 0.02 K/uL Recent Pertinent Medications Outpatient Anti-diabetic Regimen: per Ysabel Johnson, patient recently diagnosed a few months ago * Metformin 500 mg BID * A1c = 8.2 % 08/01/17 Risk Factors for Insulin Resistance: * Infection: UTI - started on Rocephin * Diet: type 2 diabetes/ AHA Assessment & Plan ASSESSMENT: * 61 y/o female admitted for CP, with hyperglycemia on admission * I spoke with Ysabel Johnson when patient was first admitted and the only BSG we had was from earlier today, which was 343 mg/dL. I asked for a current BSG and then we could decide if IV vs SQ was indicated. * Repeat BSG was down to 239 mg/dL. I spoke with the nurse in the ER and told her I was sending a Novolog dose of 5 units to cover the BSG * Upon arrival to the floor, received a call from the admitting nurse that insulin was never administered in ER and BSG was 252 mg/dL * I started SQ basal/bolus insulin at that time, based upon insulin calculator estimates using pt's weight and stress of 2. No major stressors have been added so expect BSGs to improve with basal/bolus insulin dosing PLAN FOR INPATIENT GLYCEMIC CONTROL: * Holding outpatient oral diabetes medications - can resume closer to discharge * Basal insulin with LANTUS SQ BID per following scale: * BSG < 140 - None * BSG 140-180 - 8 units * BSG > 180 - 16 units * Correctional Insulin with NOVOLOG per scale ACHS + 00,04 * Goal Range: Low 110 mg/dL - High 140 mg/dL * Correction Factor: 25 mg/dL/unit * Nutritional / Prandial insulin per carb ratio of 1 unit per 8 grams CHO consumed * Please note that the plan above was derived based on current level of insulin resistance and hospital stress. These recommendations are appropriate for inpatient admission only. Plan of care upon discharge will need to be reassessed to avoid potential outpatient hypo/hyperglycemia. Thank you.
[2017-08-27 23:54] VITALS: BP 110/72; PULSE 99; TEMP 38; O2SAT 89
[2017-08-28] VITALS (13 sets, daily range): BP systolic 120–164; BP diastolic 68–91; PULSE 81–110; TEMP 36.6–38; O2SAT 89–97; Ht 157.5 cm; Wt 93.0 kg
[2017-08-28] MEDS: ACETAMINOPHEN 325 MG TAB PO PRN ×3 (00:15→13:17)
[2017-08-28] MEDS: INSULIN ASPART 100 UNITS/ML 3 ML PEN SC SCH ×5 (00:19→21:06)
[2017-08-28] MEDS ORDERED: NURSING VERBAL MED ORDER ONE ×3 (01:45→23:15)
[2017-08-28] MEDS ORDERED: INSULIN ASPART 100 UNITS/ML 3 ML PEN SC ONE (04:00)
[2017-08-28 04:07] LABS: HEMATOCRIT 27.2 % (37-47); HEMOGLOBIN 9.5 g/dL (12.0-16.0); MEAN CELL VOLUME 93.2 fL (80-100); MEAN CORPUSCULAR HEMOGLOBIN 32.5 pg (25-34); MEAN CORPUSCULAR HGB CONC 34.9 g/dl (32-36); MEAN PLATELET VOLUME 10.6 fL (7.4-10.4); PLATELET COUNT 129 K/uL (130-400); RED CELL DISTRIBUTION WIDTH SD 44.4 fL (36.4-46.3); WHITE BLOOD COUNT 9.27 K/uL (4.8-10.8)
[2017-08-28 04:27] LABS: CALCIUM 7.9 mg/dl (8.5-10.1); CREATININE 1.15 mg/dl (0.60-1.20); POTASSIUM 3.5 mmol/L (3.5-5.1)
[2017-08-28] MEDS: SODIUM CHLORIDE 0.9% 1000ML 1,000 ML IV SCH ×3 (04:27→21:04)
[2017-08-28] MEDS ORDERED: OPTIRAY 320 IV PRN (04:45)
[2017-08-28] MEDS: HEPARIN SOD 5000 UNIT/0.5 ML CARP SQ SCH ×3 (06:04→21:06)
--- NOTE | 2017-08-28 06:42 | DIAGNOSTIC IMAGING REPORT ---
BILATERAL LOWER EXTREMITY VENOUS DOPPLER HISTORY: Acute atypical chest pain with elevated d-dimer level CP, elevated D-dimer COMPARISON STUDY: None. FINDINGS: There is normal compressibility, flow, and augmentation within the bilateral lower extremity deep venous systems. IMPRESSION: No sonographic evidence of deep venous thrombosis within the right or left lower extremity. Electronically signed by: Josafat Amin M.D. 08/28/2017 6:41 AM Dictated Date/Time: 08/28/2017 6:40 AM
[2017-08-28 07:33] LABS: HEMOGLOBIN A1C 8.5 % (4.5-5.6)
--- NOTE | 2017-08-28 07:33 | DIAGNOSTIC IMAGING REPORT ---
(CHEST FOR PE) ANGIO WITH CT DOSE: 580.03 mGy.cm HISTORY: 61 years-old Female presents with acute central atypical chest pain and shortness of breath TECHNIQUE: Multiple CTA images of the chest were obtained after the intravenous administration of 91 ml Optiray 320. Coronal and sagittal MIPS were obtained from the axial data set and were submitted for review. A dose lowering technique was utilized adhering to the principles of ALARA. COMPARISON: Duplex venous Doppler study of same day, chest radiograph 08/27/2017 FINDINGS: CTA: Heart is normal in size with trace pericardial effusion, likely physiologic. Coronary arterial disease. No aortic aneurysm or dissection. The imaged great vessels appear to be patent. There is mild reflux of contrast into the IVC and hepatic veins. The pulmonary arterial tree is opacified to the subsegmental branches and demonstrates no focal filling defects to suggest pulmonary thromboembolic disease. CT CHEST: Thyroid is homogeneous. No pathologic adenopathy. Nonspecific mildly prominent 9 mm subcarinal and 7 mm prevascular lymph nodes are seen. No pneumothorax or pleural effusion. Linear subsegmental pleural based opacities of the right middle lobe suggest areas of atelectasis/scarring. Mild intralobular septal thickening is noted bilaterally. There is mild dependent subsegmental bibasilar atelectasis. There are no suspicious pulmonary nodules or masses identified. Mild bilateral bronchial wall thickening likely from congestive changes. Subtle groundglass opacities are noted bilaterally. Central airways are patent. No lobar airspace consolidations. Fatty infiltration of the liver. Ill-defined indeterminate 10 mm low attenuating lesion of the posterior right hepatic lobe statistically favors benign etiology such as a cyst. Not completely characterized on this study. Soft tissues are unremarkable. The bones appear intact. IMPRESSION: 1. No acute aortic pathology or evidence of pulmonary thromboembolic disease. 2. Mild bilateral interlobular septal thickening with subtle subsegmental scattered groundglass opacities suggests mild pulmonary edema with a superimposed mild pneumonitis difficult to exclude. No lobar airspace consolidations or pathologic adenopathy. 3. Coronary arterial disease. 4. Fatty infiltration of the liver. The above report was generated using voice recognition software. It may contain grammatical, syntax or spelling errors. Electronically signed by: Josafat Amin M.D. 08/28/2017 7:32 AM Dictated Date/Time: 08/28/2017 7:00 AM
[2017-08-28] MEDS ORDERED: ATORVASTATIN 20 MG TAB PO SCH (09:00)
[2017-08-28] MEDS: INSULIN GLARGINE SOLOSTAR 100 UNITS/ML 3 ML PEN SC SCH ×2 (09:56→21:05)
[2017-08-28] MEDS: GABAPENTIN 300 MG CAP PO SCH ×3 (09:58→21:03)
[2017-08-28] MEDS: THIAMINE HCL 100 MG TAB PO SCH (09:58)
[2017-08-28] MEDS: GABAPENTIN 400 MG CAP PO SCH ×3 (09:58→21:03)
[2017-08-28] MEDS: SERTRALINE HCL 100 MG TAB PO SCH (09:58)
[2017-08-28] MEDS: ASPIRIN 81 MG ECTAB PO SCH (09:59)
--- NOTE | 2017-08-28 13:06 | Cardiology Consultation ---
Cardiology Consultation Date of Consultation: Aug 28, 2017 Requesting Physician: Dr. Hughes Attending Folder Seamer Automatic: Dr. Preciado (Joan Gonzalez PA-C) History of Present Illness Patient is a 61 year old female With history of hypertension, dyslipidemia, depression, diabetes mellitus, and obesity who presented to [facility] ER yesterday from PCP office for evaluation of substernal chest pain, dyspnea, intermittent fevers, and generalized weakness. Upon review of records, it appears she was in the ER for concerns regarding fever and chills several days ago. Diagnosed with UTI. Mildly elevated WBC. Discharged on antibiotics. Patient reported no improvement in her symptoms over the next 48 hours with antibiotics. Yesterday morning she developed substernal chest pain, described as an ache, with radiation to her jaw and her "Teeth". This was first episode of chest discomfort that she can recall. She reports worsening dyspnea on exertion over the last few days. She denies symptoms of fluid retention, weight gain, swelling. No orthopnea. She saw PCP in [place] (first time visit to establish care), and was referred to ER. In ER, initial troponin borderline elevated at 0.4. EKG demonstrated NSR without acute changes. D.Dimer elevated. Negative venous duplex. No definitive PE per chest CT, possible pneumonitis with pulmonary edema. Antibiotic therapy adjusted. WBC elevated (higher than prior ER visit.) Blood cultures pending. Creatinine was elevated suggestive of volume depletion. She has been treated with gentle IV hydration. Patient denies prior cardiovascular history. No prior diagnosis of cardiac murmur, TX, CHF, arrhythmia. She reports no prior echo or stress test. At time of consult, patient reports ongoing dyspnea/SOB. Comfortable at rest. Wearing supplemental O2. No recurrent chest pain since admission. She reports feeling tired and weak. No orthopnea, PND or edema. No cough. No current fever or chills. (Joan Gonzalez PA-C) Past Medical/Surgical History Problem List: Medical Problems: (1) Anxiety (2) Benzodiazepine overdose (3) Depression (4) Diabetes mellitus, type II (5) H/O alcohol abuse (6) HLD (hyperlipidemia) (7) HTN (hypertension) Surgical History: 1. Tubal ligation (Joan Gonzalez PA-C) Family History Stroke No family history of cardiovascular disease or sudden cardiac . (Joan Gonzalez PA-C) Stroke (Greyson Preciado D.O.) Social History Smoking Status: Former Smoker Alcohol Use: occasionally (1-2 glasses of wine 3x/week ) Drug Use: other Marital Status: single Occupation: employed (Joan Gonzalez PA-C) Review Of Systems See above for pertinent positives & negatives. A total of 10 systems reviewed and were otherwise negative. (Joan Gonzalez PA-C) Allergies Coded Allergies: No Known Allergies (Verified , 08/27/17) Medications Reported Home Medications Medications Dose Route/Sig Max Daily Dose Days Date Category Dose Instructions Lipitor (Atorvastatin) 20 Mg Tab 20 Mg PO DAILY 08/27/17 Reported Vitamin B-1 (Thiamine HCl) Unknown Strength Tab 1 Tab PO DAILY 08/27/17 Reported Multivitamin (Multivitamins) Tab 1 Tab PO DAILY 08/27/17 Reported Glucophage (Metformin Hcl) 500 Mg Tab 500 Mg PO BID 08/27/17 Reported Zoloft (Sertraline HCl) 100 Mg Tab 200 Mg PO DAILY 08/27/17 Reported TWO 100 MG TABLETS Lisinopril/Hctz 10/12.5 Mg (HCTZ/Lisinopril) 1 Ea Tab 1 Tab PO DAILY 08/27/17 Reported Neurontin (Gabapentin) 300 Mg Cap 300 Mg PO TID 08/27/17 Reported TAKE EACH DOSE ALONG WITH ONE 400 MG CAPSULE TO = 700 MG TID Neurontin (Gabapentin) 400 Mg Cap 400 Mg PO TID 08/27/17 Reported TAKE EACH DOSE ALONG WITH ONE 300 MG CAPSULE TO = 700 MG TID Keflex (Cephalexin Monohydrate) 500 Mg Cap 500 Mg PO BID 08/27/17 Reported (Joan Gonzalez PA-C) Physical Exam Vital Signs (Last 8hrs): Last 8 Hrs Date Time Temp Pulse Resp B/P (MAP) Pulse Ox O2 Delivery O2 Flow Rate FiO2 08/28/17 12:12 95 08/28/17 11:53 37.0 94 18 146/84 (104) 95 Nasal Cannula 2.0 100 155/91 (112) 110 164/81 (108) 08/28/17 09:00 92 Nasal Cannula 2.0 08/28/17 08:33 37.0 88 12 120/76 (91) 89 Room Air 08/28/17 08:00 Nasal Cannula 2.0 General Appearance: Alert and Oriented x3. Obese Head: Normocephalic Atraumatic. Eyes: PERRLA, EOMI, conjunctiva and sclera clear Neck: Supple. No carotid bruits noted. No JVD. No HJD. Respiratory: Breath sounds clear to auscultation bilaterally. No w/r/r. Cardiovascular: Reg rate and rhythm. S1 and S2 noted. No murmurs, rubs, gallops. PMI non displace. Abdomen: Normal bowel sounds, soft nontender. no abdominal bruits. Extremities: No significant edema, no clubbing or cyanosis. distal pulses 2/4 bilaterally. Neuro: No focal deficits. Psychiatric: Emotional/crying. (Joan Gonzalez, IRVIN) Data Last 24 Hours Test 08/27/17 13:55 08/27/17 14:42 08/27/17 15:00 08/27/17 16:09 White Blood Count 13.42 K/uL Red Blood Count 3.39 M/uL Hemoglobin 11.1 g/dL Hematocrit 31.4 % Mean Corpuscular Volume 92.6 fL Mean Corpuscular Hemoglobin 32.7 pg Mean Corpuscular Hemoglobin Concent 35.4 g/dl Platelet Count 158 K/uL Mean Platelet Volume 11.2 fL Neutrophils (%) (Auto) 83.9 % Lymphocytes (%) (Auto) 6.6 % Monocytes (%) (Auto) 7.4 % Eosinophils (%) (Auto) 1.6 % Basophils (%) (Auto) 0.1 % Neutrophils # (Auto) 11.24 K/uL Lymphocytes # (Auto) 0.89 K/uL Monocytes # (Auto) 0.99 K/uL Eosinophils # (Auto) 0.22 K/uL Basophils # (Auto) 0.02 K/uL RDW Standard Deviation 43.9 fL RDW Coefficient of Variation 13.0 % Immature Granulocyte % (Auto) 0.4 % Immature Granulocyte # (Auto) 0.06 K/uL Prothrombin Time 9.8 SECONDS Prothromb Time International Ratio 0.9 Activated Partial Thromboplast Time 30.0 SECONDS Partial Thromboplastin Ratio 1.2 Sodium Level 130 mmol/L Potassium Level 3.6 mmol/L Chloride Level 99 mmol/L Carbon Dioxide Level 20 mmol/L Anion Gap 11.0 mmol/L Blood Urea Nitrogen 19 mg/dl Creatinine 1.29 mg/dl Est Creatinine Clear Calc Drug Dose 48.3 ml/min Estimated GFR () 51.8 Estimated GFR (Non- 44.7 BUN/Creatinine Ratio 14.7 Random Glucose 343 mg/dl Calcium Level 8.4 mg/dl Magnesium Level 1.9 mg/dl Total Bilirubin 0.5 mg/dl Direct Bilirubin 0.1 mg/dl Aspartate Amino Transf (AST/SGOT) 12 U/L Alanine Aminotransferase (ALT/SGPT) 22 U/L Alkaline Phosphatase 83 U/L Troponin I 0.424 ng/ml 0.292 ng/ml Total Protein 6.5 gm/dl Albumin 2.5 gm/dl Lipase 130 U/L Beta-Hydroxybutyric Acid 1.08 mg/dL Thyroid Stimulating Hormone (TSH) 2.660 uIu/ml Lactic Acid Level 1.8 mmol/L Urine Color YELLOW Urine Appearance CLOUDY Urine pH 5.0 Urine Specific [place] 1.026 Urine Protein TRACE Urine Glucose (UA) 3+ Urine Ketones NEG Urine Occult Blood 3+ Urine Nitrite NEG Urine Bilirubin NEG Urine Urobilinogen NEG Urine Leukocyte Esterase MODERATE Urine WBC (Auto) >30 /hpf Urine RBC (Auto) 0-4 /hpf Urine Hyaline Casts (Auto) 1-5 /lpf Urine Epithelial Cells (Auto) >30 /lpf Urine Bacteria (Auto) NEG Urine Pathogenic Casts /lpf Urine Yeast (Auto) PRESENT Urine Opiates Screen NEG Urine Methadone, Qualitative NEG Urine Barbiturates NEG Urine Phencyclidine (PCP) Level NEG Ur Amphetamine/Methamphetamine NEG MDMA (Ecstasy) Screen NEG Urine Benzodiazepines Screen NEG Urine Cocaine Metabolite NEG Urine Marijuana (THC) NEG Test 08/27/17 17:41 08/27/17 19:15 08/27/17 22:09 08/28/17 00:15 Bedside Glucose 239 mg/dl 252 mg/dl 177 mg/dl Troponin I 0.369 ng/ml Test 08/28/17 03:59 08/28/17 04:11 08/28/17 07:40 08/28/17 11:35 White Blood Count 9.27 K/uL Red Blood Count 2.92 M/uL Hemoglobin 9.5 g/dL Hematocrit 27.2 % Mean Corpuscular Volume 93.2 fL Mean Corpuscular Hemoglobin 32.5 pg Mean Corpuscular Hemoglobin Concent 34.9 g/dl RDW Standard Deviation 44.4 fL RDW Coefficient of Variation 13.0 % Platelet Count 129 K/uL Mean Platelet Volume 10.6 fL D-Dimer 1210 ug/L FEU Sodium Level 134 mmol/L Potassium Level 3.5 mmol/L Chloride Level 103 mmol/L Carbon Dioxide Level 21 mmol/L Anion Gap 10.0 mmol/L Blood Urea Nitrogen 17 mg/dl Creatinine 1.15 mg/dl Est Creatinine Clear Calc Drug Dose 54.0 ml/min Estimated GFR () 59.5 Estimated GFR (Non- 51.3 BUN/Creatinine Ratio 14.8 Random Glucose 186 mg/dl Estimated Average Glucose 197 mg/dl Hemoglobin A1c 8.5 % Calcium Level 7.9 mg/dl Troponin I 0.202 ng/ml Triglycerides Level 493 mg/dl Cholesterol Level 139 mg/dl HDL Cholesterol 9 mg/dl LDL Cholesterol, Calculated mg/dl VLDL Cholesterol, Calculated mg/dl Cholesterol/HDL Ratio 15.4 Bedside Glucose 181 mg/dl 235 mg/dl 271 mg/dl Imaging: Chest CT report reviewed: IMPRESSION: 1. No acute aortic pathology or evidence of pulmonary thromboembolic disease. 2. Mild bilateral interlobular septal thickening with subtle subsegmental scattered groundglass opacities suggests mild pulmonary edema with a superimposed mild pneumonitis difficult to exclude. No lobar airspace consolidations or pathologic adenopathy. 3. Coronary arterial disease. 4. Fatty infiltration of the liver. venous duplex report reviewed: IMPRESSION: No sonographic evidence of deep venous thrombosis within the right or left lower extremity. Renal ultrasound report reviewed: IMPRESSION : 1. No evidence of hydronephrosis 2. 14 mm left renal cyst EKG On admission reviewed: Normal sinus rhythm Normal ECG When compared with ECG of 25-AUG-2017 15:06, No significant change was found repeat EKG this morning, August 28, 2017: Normal sinus rhythm Normal ECG When compared with ECG of 27-AUG-2017 15:01, No significant change was found Telemetry reviewed: Normal sinus rhythm with occasional PVC. No sustained arrhythmias. (Joan Gonzalez, IRVIN) Assessment & Plan 1. Chest pain, now resolved. -No acute EKG changes -Minimal troponin elevation, flat - Not indicative of ACS but concerning for demand ischemia in the setting of acute illness. Possible underlying coronary artery disease -Risk factors for CAD include DM, HTN, dyslipidemia, obesity -Echo ordered. Await results -SL nitro for recurrent chest pain -Continue ASA, statin. -Lisinopril/HCTZ on hold due to NELL -Low threshold to add beta luis if BP allows. -plan for possible dobutamine stress echo tomorrow AM 2. UTI -await urine cultures and blood cultures -Antibiotics per hospitalist 3. Dyslipidemia - continue statin Case discussed with Dr. Preciado. Will follow. (Joan Gonzalez, PA-C) Cardiology attending: Pt seen and examined, agree with findings and assessment as per Joan Aguilera. Pt with continued dyspnea at rest with unremarkable EKG and minimal troponin elevation in the setting of NELL. Echocardiogram does show moderate hypokinesis of the anterolateral and apical grimaldo concerning for ischemia. Discussed findings with patient. Will start metoprolol 25mg po bid now and cont aspirin. No indication for heparin at this time given that troponin has trended down. (Greyson Preciado, D.O.)
--- NOTE | 2017-08-28 13:56 | Pharmacy Progress Note ---
Glycemic Control Progress Note Date of Service Aug 28, 2017. Scope Glycemic Pharmacist consulted for glycemic control to write orders per [facility] inpatient glycemic control protocol. Objective Accuchecks BSG (last 24hrs): Test 08/27/17 13:55 08/27/17 17:41 08/27/17 19:15 08/28/17 00:15 Random Glucose 343 mg/dl (70-99) Bedside Glucose 239 mg/dl (70-90) 252 mg/dl (70-90) 177 mg/dl (70-90) Test 08/28/17 03:59 08/28/17 04:11 08/28/17 07:40 08/28/17 11:35 Random Glucose 186 mg/dl (70-99) Bedside Glucose 181 mg/dl (70-90) 235 mg/dl (70-90) 271 mg/dl (70-90) HbA1c: Test 08/28/17 03:59 Hemoglobin A1c 8.5 % (4.5-5.6) H Recent Pertinent Medications The patient is currently receiving: * Basal insulin: Lantus 0-8-16 units every 12 hours * Correctional Insulin: Novolog Correction per scale ACHS Goal Range: Low 110 mg/dL - High 140 mg/dL Correction Factor: 25 mg/dL/unit * Prandial insulin: Per carb ratio of 1 unit per 8 grams CHO consumed Outpatient Anti-Diabetic Meds * Metformin 500 mg BID Assessment & Plan ASSESSMENT: * See progress note from 08/27/17 for more background info, in short: * Pt receiving SQ basal bolus insulin regimen for hyperglycemia secondary to baseline DM (outpatient regimen on hold),stress/infection * Weight based insulin was utilized last evening for insulin naive patient. * BSGs ranging 144 - 343 mg/dl over the past 24hrs * Changes needed to insulin regimen: * AM Fasting BSG = 235 mg/dl. This is above goal range for patient based on inpatient targets and co-morbidities. Lantus was just initiated last evening, therefore full effect not seen at this time. Continue to dose per scale until needs are determined. * Post-prandial BSGs remain elevated. Tighten CF/CR to weight-stress 3 until hyperglycemia resolves. PLAN FOR INPATIENT GLYCEMIC CONTROL: * Basal insulin * Continue Lantus 0-16 units SQ BID * BSG < 140 - None * BSG 140-180 - 8 units * BSG > 180 - 16 units * Bolus insulin * NovoLog per scale ACHS or Q6hrs while NPO * Goal Range: Low 110 mg/dL - High 140 mg/dL * Correction Factor: 15 mg/dL/unit * Nutritional / Prandial insulin per carb ratio of 1 unit per 6 grams CHO consumed thank you.
[2017-08-28] MEDS ORDERED: NITROGLYCERIN 0.4 MG SL PER TAB CHARGE ONE (14:37)
--- NOTE | 2017-08-28 14:47 | ECHOCARDIOGRAM REPORT ---
*NOTICE TO RECEIVING [employer] This information is strictly Confidential and protected under [place] law. [place] law prohibits you from making any further disclosure of this information unless further disclosure is expressly permitted by the written consent of the person to whom it pertains or is authorized by law. A general authorization for the release of medical or other information is not sufficient for this purpose. Hospital accepts no responsibility if the information is made available to any other person, INCLUDING THE PATIENT. Interpretation Summary * Name: JENNY PATEL Study Date: 08/28/2017 11:13 AM BP: 164/81 mmHg * Patient Location: [facility]\S\N287\S\2 HR: 95 * : 1955 (M/d/yyyy) Gender: Female Height: 62 in * Age: 61 yrs Ethnicity: [place] Weight: 202 lb * Ordering Physician: Ysabel Johnson * Referring Physician: Yanira Ramires D.O. * Performed By: Lenora Rowan RCS * * Reason For Study: CHEST PAIN / ELEVATED TROPONIN * BSA: 1.9 m2 * -- Conclusions -- * Normal LV chamber size with mild concentric LVH. * Mildly reduced LV systolic function, EF 45-50%. * Moderate hypokinesis of the anteroseptal and apical grimaldo, otherwise, hyperdynamic wall motion. * Grade II diastolic dysfunction. * No significant valvular pathology. * Pulmonary hypertension is present with a RVSP of 40-50 mmHg. IVC not well visualized. Procedure Details * A complete two-dimensional transthoracic echocardiogram was performed (2D, M-mode, Doppler and color flow Doppler). * A contrast injection of Definity was performed to improve assessment of LV function. * Contrast was injected into an intravenous site in the left arm. * One vial of Definity ultrasound contrast was diluted in normal saline to a total volume of 10 ml. A total of '2' ml of solution was administered during imaging. * Lot # [id number] of Definity utilized for procedure. * Expiration date 1 AUG 18. * The attending nurse who injected the contrast agent was BENITO AGUILAR RN. Left Ventricle * The left ventricle is normal in size. * There is mild concentric left ventricular hypertrophy. * Left ventricular systolic function is mildly reduced. * Ejection Fraction = 45-50%. * Moderate hypokinesis of the anteroseptal and apical grimaldo, otherwise, hyperdynamic wall motion. Right Ventricle * The right ventricular cavity size is normal (basal dimension <4.2 cm in right ventricular apical 4-chamber view). * The right ventricular systolic function is normal as assessed by tricuspid annular plane systolic excursion (TAPSE) (normal >1.5 cm). Atria * The left atrial size is normal. * Right atrial size is normal. * No ASD detected; PFO is not assessed. Mitral Valve * The mitral valve is normal in structure and function. Tricuspid Valve * The tricuspid valve is normal in structure and function. Aortic Valve * The aortic valve is not well visualized. * No hemodynamically significant valvular aortic stenosis. * There is no significant aortic regurgitation. Pulmonic Valve * The pulmonary valve is not well seen, but the Doppler examination is normal without significant regurgitation or stenosis. Great Vessels * The aortic root is normal size. Pericardium/Pleural * There is no pericardial effusion. Left Ventricular Diastolic Function * Diastolic dysfunction, Grade II (pseudonormalization pattern). MMode 2D Measurements and Calculations IVSd 1.0 cm IVSs 1.3 cm LVIDd 3.7 cm LVIDs 2.6 cm LVPWd 1.1 cm LVPWs 1.3 cm IVS/LVPW 0.94 FS 30.0 % EDV(Teich) 57.9 ml ESV(Teich) 24.2 ml EF(Teich) 58.1 % EDV(cubed) 50.4 ml ESV(cubed) 17.3 ml EF(cubed) 65.7 % % IVS thick 34.6 % % LVPW thick 23.4 % LV mass(C)d 117.7 grams LV mass(C)dI 61.3 grams/m\S\2 LV mass(C)s 106.4 grams LV mass(C)sI 55.4 grams/m\S\2 SV(Teich) 33.6 ml SI(Teich) 17.5 ml/m\S\2 SV(cubed) 33.1 ml SI(cubed) 17.3 ml/m\S\2 Ao root diam 2.6 cm Ao root area 5.4 cm\S\2 LA dimension 3.4 cm LA/Ao 1.3 LVOT diam 1.7 cm LVOT area 2.4 cm\S\2 LVAd ap4 31.9 cm\S\2 LVLd ap4 8.0 cm EDV(MOD-sp4) 103.2 ml EDV(sp4-el) 108.1 ml LVAs ap4 22.2 cm\S\2 LVLs ap4 7.4 cm ESV(MOD-sp4) 54.4 ml ESV(sp4-el) 56.6 ml EF(MOD-sp4) 47.2 % EF(sp4-el) 47.6 % LVAd ap2 28.3 cm\S\2 LVLd ap2 8.1 cm EDV(MOD-sp2) 79.4 ml EDV(sp2-el) 83.3 ml LVAs ap2 17.7 cm\S\2 LVLs ap2 6.6 cm ESV(MOD-sp2) 38.4 ml ESV(sp2-el) 40.5 ml EF(MOD-sp2) 51.6 % EF(sp2-el) 51.3 % LVLd %diff 2.1 % EDV(MOD-bp) 90.2 ml LVLs %diff -12.53 % ESV(MOD-bp) 47.6 ml EF(MOD-bp) 47.2 % SV(MOD-sp4) 48.7 ml SI(MOD-sp4) 25.4 ml/m\S\2 SV(MOD-sp2) 41.0 ml SI(MOD-sp2) 21.4 ml/m\S\2 SV(MOD-bp) 42.6 ml SI(MOD-bp) 22.2 ml/m\S\2 SV(sp4-el) 51.5 ml SI(sp4-el) 26.8 ml/m\S\2 SV(sp2-el) 42.7 ml SI(sp2-el) 22.3 ml/m\S\2 Doppler Measurements and Calculations MV E max maryann 116.4 cm/sec MV A max maryann 102.3 cm/sec MV E/A 1.1 MV P1/2t max maryann 134.4 cm/sec MV P1/2t 87.8 msec MVA(P1/2t) 2.5 cm\S\2 MV dec slope 448.3 cm/sec\S\2 MV dec time 0.24 sec Ao V2 max 169.4 cm/sec Ao max PG 11.5 mmHg Ao max PG (full) 7.8 mmHg LORNA(V,A) 1.4 cm\S\2 LORNA(V,D) 1.4 cm\S\2 LV V1 max PG 3.7 mmHg LV V1 max 96.0 cm/sec MR max maryann 569.0 cm/sec MR max PG 129.5 mmHg PA V2 max 126.2 cm/sec PA max PG 6.4 mmHg TR max maryann 340.0 cm/sec
[2017-08-28] MEDS ORDERED: METOPROLOL TARTRATE 25 MG TAB PO ONE (15:00)
[2017-08-28] MEDS: CEFTRIAXONE SOD INJ 1 GM in DEXTROSE 5% ADD-VANTAGE 50ML 50 ML IV SCH (19:40)
--- NOTE | 2017-08-28 19:51 | Progress Note ---
Medicine Progress Note Date & Time of Visit: Aug 28, 2017 at 19:18. Subjective Pt was seen and examined Lying in bed with no distress Pt said that he is breathing improved slightly, but worsening with exertion She continue to feel weak with low energy Denies any chest pain, palpitation currently Objective Last 8 Hrs Date Time Temp Pulse Resp B/P (MAP) Pulse Ox O2 Delivery O2 Flow Rate FiO2 08/28/17 16:45 37.0 85 133/83 (100) 08/28/17 16:28 37.0 08/28/17 16:00 Nasal Cannula 2.0 08/28/17 15:47 37.6 92 16 138/88 (105) 96 Nasal Cannula 2.0 96 142/84 (103) 95 159/86 (110) 08/28/17 14:44 99 147/68 (94) 08/28/17 13:19 37.4 08/28/17 12:12 95 08/28/17 12:00 Nasal Cannula 2.0 08/28/17 11:53 37.0 94 18 146/84 (104) 95 Nasal Cannula 2.0 100 155/91 (112) 110 164/81 (108) Physical Exam: General- no acute distress Head- atraumatic Eyes- PERRL, EOMI ENT- oropharynx clear Neck- supple, no JVD Lungs- No wheezing Heart- regular rhythm; no murmur Abdomen- normal bowel sounds, soft Extremities- no calf tenderness Neuro- alert, oriented x 3; PERRL, EOMI Skin- warm & dry Laboratory Results: Last 24 Hours Test 08/27/17 22:09 08/28/17 00:15 08/28/17 03:59 08/28/17 04:11 Troponin I 0.369 ng/ml 0.202 ng/ml Bedside Glucose 177 mg/dl 181 mg/dl White Blood Count 9.27 K/uL Red Blood Count 2.92 M/uL Hemoglobin 9.5 g/dL Hematocrit 27.2 % Mean Corpuscular Volume 93.2 fL Mean Corpuscular Hemoglobin 32.5 pg Mean Corpuscular Hemoglobin Concent 34.9 g/dl RDW Standard Deviation 44.4 fL RDW Coefficient of Variation 13.0 % Platelet Count 129 K/uL Mean Platelet Volume 10.6 fL D-Dimer 1210 ug/L FEU Sodium Level 134 mmol/L Potassium Level 3.5 mmol/L Chloride Level 103 mmol/L Carbon Dioxide Level 21 mmol/L Anion Gap 10.0 mmol/L Blood Urea Nitrogen 17 mg/dl Creatinine 1.15 mg/dl Est Creatinine Clear Calc Drug Dose 54.0 ml/min Estimated GFR () 59.5 Estimated GFR (Non- 51.3 BUN/Creatinine Ratio 14.8 Random Glucose 186 mg/dl Estimated Average Glucose 197 mg/dl Hemoglobin A1c 8.5 % Calcium Level 7.9 mg/dl Triglycerides Level 493 mg/dl Cholesterol Level 139 mg/dl HDL Cholesterol 9 mg/dl LDL Cholesterol, Calculated mg/dl VLDL Cholesterol, Calculated mg/dl Cholesterol/HDL Ratio 15.4 Test 08/28/17 07:40 08/28/17 11:35 08/28/17 16:11 Bedside Glucose 235 mg/dl 271 mg/dl 95 mg/dl Date/Time Source Procedure Growth Status 08/28/17 09:45 Stool Shiga Toxin Test Pending Received 08/28/17 09:45 Stool Stool Culture Pending Received 08/28/17 09:45 Stool C.difficile Toxin B Gene (PCR) - Final No C. difficile toxin B gene detected Complete Assessment & Plan Chest pain associated with dyspnea Need to r/o ACS Has multiples risk factors include DM II, HTN, HLD Troponin on admission 0.424, then trending down 0.292 CTA chest showed no acute aortic pathology or evidence of pulmonary thromboembolic disease EKG did not showed any ischemic changes Currently no chest pain case discussed with cardiology Plan to do a cardiac cath in am ECHO showed * Normal LV chamber size with mild concentric LVH. * Mildly reduced LV systolic function, EF 45-50%. * Moderate hypokinesis of the anteroseptal and apical grimaldo, otherwise, hyperdynamic wall motion. * Grade II diastolic dysfunction. * No significant valvular pathology. * Pulmonary hypertension is present with a RVSP of 40-50 mmHg. IVC not well visualized. UTI: Positive UA on 08/25 from the ER that grew Klebsiella She was discharged on keflex Abx changed to Rocephin on abx, will continue rocephin now Repeat urine cx pending Blood cx pending Denies any urinary symptoms Febrile WBC 13 on admission and today wnl stable DM II: Recent Hba1c 8.5 Oral DM on hold Pharmacy on board for glycemic management Continue monitor BS NELL: Creatine during last ER visit was 1.8, Baseline Cr ~0.9 Creatine on admission 1.29 renal u/s no evidence of hydronephrosis Creatine 1.15 today Lisinopril and HCTZ on hold. On IVF Resolved ELEVATED D-DIMER Related to acute illness/NELL CTA chest negative for PE Doppler LE negative for DVT HTN: BP starting to elevate Lisinopril/hctz on hold due to NELL Will resume Lisinopril tomorrow after cardiac cath Decrease IVF HLD: Elevated triglycerides Will defer to PCP to repeat triglycerides or to start on fenofibrate Cont atorvastatin Depression, anxiety: H/o overdose on benzodiazepines in the past Cont home dose SSRI, gabapentin Stable DVT Ppx: SQ heparin Code status: FULL Dispo: Continue to monitor in tele Current Inpatient Medications: Current Inpatient Medications Medications (Trade) Dose Ordered Sig/Miranda Route Start Time Stop Time Status Last Admin Dose Admin Heparin Sodium (Porcine) (Heparin Sq 5000 Unit/0.5ml) 5,000 unit Q8 SQ 08/27/17 22:00 09/26/17 21:59 08/28/17 13:57 5,000 UNIT Acetaminophen (Tylenol Tab) 650 mg Q4H PRN PO 08/27/17 17:30 09/26/17 17:29 08/28/17 13:17 650 MG Al Hydrox/Mg Hydrox/Simethicone (Maalox Max Susp) 15 ml Q4H PRN PO 08/27/17 17:30 09/26/17 17:29 Ondansetron HCl (Zofran Inj) 4 mg Q6H PRN IV 08/27/17 17:30 09/26/17 17:29 Sodium Chloride 1,000 ml @ 125 mls/hr Q8H IV 08/27/17 17:30 09/26/17 17:29 08/28/17 13:51 125 MLS/HR Miscellaneous Information (Consult Glycemic Management Pharmacy) 1 ea UD PRN N/A 08/27/17 17:47 09/26/17 17:46 Ceftriaxone Sodium 1 gm/ Dextrose 50 ml @ 100 mls/hr Q24H IV 08/27/17 20:00 09/01/17 19:59 08/27/17 20:08 100 MLS/HR Gabapentin (Neurontin Cap) 300 mg TID PO 08/27/17 21:00 09/26/17 20:59 08/28/17 13:17 300 MG Gabapentin (Neurontin Cap) 400 mg TID PO 08/27/17 21:00 09/26/17 20:59 08/28/17 13:17 400 MG Sertraline HCl (Zoloft Tab) 200 mg DAILY PO 08/28/17 09:00 09/27/17 08:59 08/28/17 09:58 200 MG Thiamine HCl (Vitamin B-1 Tab) 100 mg DAILY PO 08/28/17 09:00 09/27/17 08:59 08/28/17 09:58 100 MG Miscellaneous (Iv Fluids Completed) 1 ea PRN PRN N/A 08/27/17 19:15 08/27/18 19:14 Insulin Aspart (novoLOG ASPART) SLIDING SCALE ACHS SC 08/27/17 19:30 09/26/17 19:29 08/28/17 18:34 6 UNITS Glucose (Glucose 40% Gel) 15-30 GRAMS 15 GRAMS... UD PRN PO 08/27/17 19:30 09/26/17 19:29 Glucose (Glucose Chew Tab) 4-8 Tablets 4 Tabl... UD PRN PO 08/27/17 19:30 09/26/17 19:29 Dextrose (Dextrose 50% 50ML Syringe) 25-50ML OF 50% DW IV FOR... UD PRN IV 08/27/17 19:30 09/26/17 19:29 Glucagon (Glucagon Inj) 1 mg UD PRN SQ 08/27/17 19:30 09/26/17 19:29 Insulin Glargine (Lantus Solostar Pen) SEE PROTOCOL TEXT BID SC 08/27/17 21:00 09/26/17 20:59 08/28/17 09:56 16 UNITS Atorvastatin Calcium (Lipitor Tab) 20 mg HS PO 08/27/17 21:00 09/26/17 20:59 08/27/17 20:40 20 MG Aspirin (Ecotrin Tab) 81 mg QAM PO 08/28/17 09:00 09/27/17 08:59 08/28/17 09:59 81 MG Ioversol (Optiray 320) 100 ml UD PRN IV 08/28/17 04:45 09/01/17 04:44 Metoprolol Tartrate (Lopressor Tab) 25 mg BID PO 08/28/17 21:00 09/27/17 20:59
[2017-08-28] MEDS: ATORVASTATIN 20 MG TAB PO SCH (21:02)
[2017-08-28] MEDS: METOPROLOL TARTRATE 25 MG TAB PO SCH (21:04)
[2017-08-29] VITALS (9 sets, daily range): BP systolic 102–169; BP diastolic 65–86; PULSE 65–89; TEMP 36.6–37.1; O2SAT 81–96
[2017-08-29] MEDS: ACETAMINOPHEN 325 MG TAB PO PRN (00:14)
[2017-08-29] MEDS: HEPARIN SOD 5000 UNIT/0.5 ML CARP SQ SCH ×3 (06:00→21:03)
[2017-08-29] MEDS: INSULIN ASPART 100 UNITS/ML 3 ML PEN SC SCH ×4 (06:00→18:05)
[2017-08-29 07:02] LABS: CALCIUM 7.8 mg/dl (8.5-10.1); CREATININE 0.96 mg/dl (0.60-1.20); POTASSIUM 3.3 mmol/L (3.5-5.1)
[2017-08-29] MEDS ORDERED: POTASSIUM CHLORIDE 20 MEQ TABCR PO ONE ×2 (08:30→15:30)
[2017-08-29] MEDS: GABAPENTIN 300 MG CAP PO SCH ×3 (08:37→21:00)
[2017-08-29] MEDS: METOPROLOL TARTRATE 25 MG TAB PO SCH ×2 (08:37→21:00)
[2017-08-29] MEDS: GABAPENTIN 400 MG CAP PO SCH ×3 (08:37→20:59)
[2017-08-29] MEDS: SERTRALINE HCL 100 MG TAB PO SCH (08:38)
[2017-08-29] MEDS: THIAMINE HCL 100 MG TAB PO SCH (08:38)
[2017-08-29] MEDS: INSULIN GLARGINE SOLOSTAR 100 UNITS/ML 3 ML PEN SC SCH (08:39)
[2017-08-29] MEDS: ASPIRIN 81 MG ECTAB PO SCH (08:39)
[2017-08-29] MEDS: SODIUM CHLORIDE 0.9% 1000ML 1,000 ML IV SCH (09:37)
[2017-08-29] MEDS ORDERED: INSULIN GLARGINE SOLOSTAR 100 UNITS/ML 3 ML PEN SC SCH (12:00)
[2017-08-29] MEDS ORDERED: DC ALL ANTICOAGULANTS ONE (12:00)
--- NOTE | 2017-08-29 12:01 | Pre Sedation Assessment ---
Pre Sedation Assessment General Date of Sedation: Aug 29, 2017. Vital Signs Past 12 Hours Date Time Temp Pulse Resp B/P (MAP) Pulse Ox O2 Delivery O2 Flow Rate FiO2 08/29/17 11:39 37.1 71 20 112/69 (83) 94 3.0 08/29/17 08:00 Nasal Cannula 2.0 08/29/17 07:26 36.8 66 18 122/79 (93) 95 2.0 08/29/17 04:48 36.9 65 20 102/65 (77) 96 Nasal Cannula 3.0 08/29/17 04:00 Nasal Cannula 2.0 08/29/17 01:43 36.6 08/29/17 00:00 Nasal Cannula 2.0 Review Cardiovascular: regular rate, rhythm Lungs: lungs clear Pre-Sedation Airway Assessment Smoking Status: Former Smoker Hx of Sleep Apnea: No Hx of difficult intubation: No Short Thick Neck: No Thyro-mental Distance: > 3 Finger Breadths Oral Cavity: WNL Mallampati Classification: Class II ASA Classification: Class II NPO Status Date of Last Intake of Fluids: Aug 28, 2017 Time of Last Intake of Fluids: 2359 Date of Last Intake of Solids: Aug 28, 2017 Time of Last Intake of Solids: 2100 Procedure Planning Contraindications for Sedation: None Current Medications Reviewed: Yes Notes The planned sedation has been discussed with the patient. Informed Consent was obtained. I have identified the patient, determined the appropriateness of sedation and have assessed the patient immediately prior to the procedure. All medicine(s) and interventions are by my order.
[2017-08-29] MEDS ORDERED: MIDAZOLAM HCL 1 MG/ML 2ML VIAL ONE (12:04)
[2017-08-29] MEDS ORDERED: SODIUM CHLORIDE 0.9% 1000ML 250 ML IV PRN (12:33)
--- NOTE | 2017-08-29 12:35 | Post Sedation Assessment ---
Post Sedation Assessment General Date of Sedation Aug 29, 2017. Vital Signs: Vital Signs Past 12 Hours Date Time Temp Pulse Resp B/P (MAP) Pulse Ox O2 Delivery O2 Flow Rate FiO2 08/29/17 11:39 37.1 71 20 112/69 (83) 94 3.0 08/29/17 08:00 Nasal Cannula 2.0 08/29/17 07:26 36.8 66 18 122/79 (93) 95 2.0 08/29/17 04:48 36.9 65 20 102/65 (77) 96 Nasal Cannula 3.0 08/29/17 04:00 Nasal Cannula 2.0 08/29/17 01:43 36.6 Post Procedure Recovery Score Activity: (2) Moves 4 extremities * Respiration: (2) Deep breath/cough Circulation: (2) +/-20% PreAnes Value Consciousness: (2) Fully Awake Oxygen Saturation: (2) > 92% On Room Air Discharge Sedation Level of Care: Fast Track Phase II Post Sedation Plan On clinical assessment, the patient appears to have tolerated the sedation without complications. Patient is recovering as anticipated. Patient will continue to be monitored by nursing and may be discharged when sedation discharge criteria are met per below protocol. Upon Completions of procedure and additional 15 minutes continue every 5 minute vital signs and the P.A.R. score; then discharge to a Phase I or Fast Track to Phase II per the following guidelines: * Discharge Patient to appropriate Phase II area if PAR is 8 or greater or return to pre- procedure baseline. The post - procedure orders will be as directed. * If PAR score is less than 8 or not return to pre-procedure baseline then patient will follow Phase I monitoring till PAR is reached for Phase II. The Phase I may be done in procedure room or may call to secure a Phase I area. * If naloxone or flumazenil are used for reversal, hold in Phase I for an additional 60 -120 minutes before discharge to Phase II. Please call the Sedation Physician to re-evaluate and complete post-note for discharge to Phase II area. Do NOT discharge from procedure sedation or Phase 1 until post- sedation evaluation note is complete by procedure /sedation MD Sedation Discharge Instructions to be given to the patient at discharge to home.
--- NOTE | 2017-08-29 12:41 | Cardiac Catheterization ---
Procedure Note Procedure Date Aug 29, 2017. Pre-Procedure Diagnosis Angina AUC Score 7 Post-Procedure Diagnosis Normal Coronary Arteries Procedure(s) Performed Coronary Angiography, Left Heart Cath, LV Angiography Lvn Lpn Dr. Fried Propulsion Engineer(s) None Estimated Blood Loss None Medication(s) Versed, Lidocaine 1% Summary of Findings See dictated report Hemodynamics Rest Ao: 139/71 Final Ao: 137/67 LV: 134/21 Recommendations Medical therapy and/or Counseling Specimens None Radiation Exposure (mGy) 941 Contrast (mls) 94 Disposition PCU ACC Data Cardiac Status Clinical evaluation leading to the procedure CAD Presntation: Stable angina Anginal Classification: CCS II Heart Failure: No Cardiogenic Shock w/in 24Hrs: No Cardiac Arrest w/in 24Hrs: No Imaging studies past 6 months: Yes Stress studies past 6 months: No Coronary Anatomy Dominant: Right Left Main (% Stenosis): Normal LAD (% Stenosis): Normal Circumflex (% Stenosis): Normal RCA (% Stenosis): Normal Left Ventricular Angiography EF (%): 60 Mitral Regurgitation: None Diagnostic Physician's Name: Petar Fried, DO Status: Urgent Closure Device Percutaneous Entry Location: Femoral Closure Device: Mynx Recommendations: Medical therapy and/or Counseling
[2017-08-29] MEDS ORDERED: ONDANSETRON INJ 2 MG/ML 2 ML VIAL IV PRN (12:45)
[2017-08-29] MEDS ORDERED: ACETAMINOPHEN 325 MG TAB PO PRN (12:45)
[2017-08-29] MEDS ORDERED: ATROPINE SULFATE 0.1 MG/ML 5ML SYR IV PRN (12:45)
--- NOTE | 2017-08-29 12:45 | Procedure Note ---
Cardiac Cath Report History: This is a 61-year-old female who presented with chest pain and had a abnormal echocardiogram suggesting wall motion abnormalities consistent with ischemic heart disease Procedure summary: The patient was seen and evaluated in the holding area the Medical Specialist. After informed consent was obtained the patient was taken to the cardiac catheterization lab where access was obtained using a retrograde Salinger technique from the right femoral artery. Preformed 5 Arabic diagnostic catheters were utilized for the coronary angiograms. A 5 Arabic pigtail catheter was utilized for left heart pressures and for left ventriculogram. Following the procedure the patient had the arterial site closed with the minx device. Patient then was returned to her room in stable condition. Coronary angiography: Selective injections of the right coronary artery reveal it to be dominant. The right coronary artery is smooth in appearance widely patent and within normal limits. Selective injections of the left coronary artery revealed the left main trunk to be patent. The LAD extends to the apex of the heart. The LAD gives off a ramus branch and then a first diagonal branch which are moderate in size. The LAD system is widely patent. The left circumflex artery consists of the AV groove portion and a large first marginal branch. The left circumflex system is widely patent. Left ventriculogram: The left ventricle is of normal size with normal systolic function. The estimated left ventricular ejection fraction is 60%. The mitral valve is competent. The LVEDP is 20. Summary: Widely patent and normal coronary arteries. Normal LV function and left heart pressures. Recommendations: Medical management and counseling.
[2017-08-29] MEDS ORDERED: SODIUM CHLORIDE 0.9% 1000ML 1,000 ML IV SCH (13:00)
[2017-08-29] MEDS ORDERED: NURSING VERBAL MED ORDER ONE (17:15)
[2017-08-29] MEDS ORDERED: ALBUT/IPRATROP 3MG/0.5MG NEB 3 ML VIAL INH PRN (17:30)
[2017-08-29] MEDS: ALBUT/IPRATROP 3MG/0.5MG NEB 3 ML VIAL INH SCH ×2 (17:50→19:54)
--- NOTE | 2017-08-29 17:53 | Progress Note ---
Medicine Progress Note Date & Time of Visit: Aug 29, 2017 at 17:34. Subjective Pt was seen and examined Lying in bed with no distress Pt said that she continues to have SOB She said that she does have SOB with minimal exertion Pt said that she was fine a week ago Denies any chest pain, palpitation, dizziness and sob Objective Last 8 Hrs Date Time Temp Pulse Resp B/P (MAP) Pulse Ox O2 Delivery O2 Flow Rate FiO2 08/29/17 16:03 Nasal Cannula 2.0 08/29/17 15:33 36.9 77 20 151/86 (107) 92 Nasal Cannula 4.0 08/29/17 13:01 72 18 132/71 (91) 96 Nasal Cannula 4 08/29/17 12:46 71 18 133/74 (93) 95 Nasal Cannula 4 08/29/17 12:31 73 18 135/84 (101) 97 Mask 6 08/29/17 11:39 37.1 71 20 112/69 (83) 94 3.0 Physical Exam: General- no acute distress Head- atraumatic Eyes- PERRL, EOMI ENT- oropharynx clear Neck- supple, no JVD Lungs- +wheezing on expiratory Heart- regular rhythm; no murmur Abdomen- normal bowel sounds, soft Extremities- no calf tenderness Neuro- alert, oriented x 3; PERRL, EOMI Skin- warm & dry Laboratory Results: Last 24 Hours Test 08/28/17 20:52 08/28/17 23:54 08/29/17 05:44 08/29/17 05:55 Bedside Glucose 162 mg/dl 116 mg/dl 128 mg/dl Sodium Level 137 mmol/L Potassium Level 3.3 mmol/L Chloride Level 109 mmol/L Carbon Dioxide Level 20 mmol/L Anion Gap 8.0 mmol/L Blood Urea Nitrogen 14 mg/dl Creatinine 0.96 mg/dl Est Creatinine Clear Calc Drug Dose 66.2 ml/min Estimated GFR () 74.0 Estimated GFR (Non- 63.8 BUN/Creatinine Ratio 14.5 Random Glucose 115 mg/dl Calcium Level 7.8 mg/dl Test 08/29/17 11:39 08/29/17 14:41 Bedside Glucose 134 mg/dl 130 mg/dl Assessment & Plan Chest pain associated with dyspnea Need to r/o ACS Has multiples risk factors include DM II, HTN, HLD Troponin on admission 0.424, then trending down 0.292 CTA chest showed no acute aortic pathology or evidence of pulmonary thromboembolic disease EKG did not showed any ischemic changes Currently no chest pain case discussed with cardiology 08/29 Had Cardiac cath done today showed patent vessels Cardiology on board and recommended medical management Continue aspirin/statin/metoprolol Continue monitor in tele ECHO showed * Normal LV chamber size with mild concentric LVH. * Mildly reduced LV systolic function, EF 45-50%. * Moderate hypokinesis of the anteroseptal and apical grimaldo, otherwise, hyperdynamic wall motion. * Grade II diastolic dysfunction. * No significant valvular pathology. * Pulmonary hypertension is present with a RVSP of 40-50 mmHg. IVC not well visualized. UTI: Positive UA on 08/25 from the ER that grew Klebsiella She was discharged on keflex Abx changed to Rocephin on abx, will continue rocephin now Blood cx no growth urine cx positive for delma Denies any urinary symptoms (No need to treat for the delma albican) WBC trending normal Will d/c abx [id number] Continue to have SOB with minimal exertion Wheezing on exam Will get cxr Consider Lasix x1 if cxr showed effusion Starting on Duoneb treatment Pulmonology on board Consider low dose of prednisone DM II: Recent Hba1c 8.5 Oral DM on hold Pharmacy on board for glycemic management Continue monitor BS NELL: Creatine during last ER visit was 1.8, Baseline Cr ~0.9 Creatine on admission 1.29 renal u/s no evidence of hydronephrosis Creatine 0.96 today Lisinopril and HCTZ on hold. On IVF Resolved ELEVATED D-DIMER Related to acute illness/NELL CTA chest negative for PE Doppler LE negative for DVT HTN: BP starting to elevate Lisinopril/hctz on hold due to NELL Will resume Lisinopril tomorrow after cardiac cath Decrease IVF HLD: Elevated triglycerides Will defer to PCP to repeat triglycerides or to start on fenofibrate Cont atorvastatin Depression, anxiety: H/o overdose on benzodiazepines in the past Cont home dose SSRI, gabapentin Stable DVT Ppx: SQ heparin Code status: FULL Dispo: Continue to monitor in tele Current Inpatient Medications: Current Inpatient Medications Medications (Trade) Dose Ordered Sig/Miranda Route Start Time Stop Time Status Last Admin Dose Admin Heparin Sodium (Porcine) (Heparin Sq 5000 Unit/0.5ml) 5,000 unit Q8 SQ 08/27/17 22:00 09/26/17 21:59 Future Hold 08/28/17 21:06 5,000 UNIT Acetaminophen (Tylenol Tab) 650 mg Q4H PRN PO 08/27/17 17:30 09/26/17 17:29 08/29/17 00:14 650 MG Al Hydrox/Mg Hydrox/Simethicone (Maalox Max Susp) 15 ml Q4H PRN PO 08/27/17 17:30 09/26/17 17:29 Ondansetron HCl (Zofran Inj) 4 mg Q6H PRN IV 08/27/17 17:30 09/26/17 17:29 Miscellaneous Information (Consult Glycemic Management Pharmacy) 1 ea UD PRN N/A 08/27/17 17:47 09/26/17 17:46 Ceftriaxone Sodium 1 gm/ Dextrose 50 ml @ 100 mls/hr Q24H IV 08/27/17 20:00 09/01/17 19:59 08/28/17 19:40 100 MLS/HR Gabapentin (Neurontin Cap) 300 mg TID PO 08/27/17 21:00 09/26/17 20:59 08/29/17 14:38 300 MG Gabapentin (Neurontin Cap) 400 mg TID PO 08/27/17 21:00 09/26/17 20:59 08/29/17 14:38 400 MG Sertraline HCl (Zoloft Tab) 200 mg DAILY PO 08/28/17 09:00 09/27/17 08:59 08/29/17 08:38 200 MG Thiamine HCl (Vitamin B-1 Tab) 100 mg DAILY PO 08/28/17 09:00 09/27/17 08:59 08/29/17 08:38 100 MG Miscellaneous (Iv Fluids Completed) 1 ea PRN PRN N/A 08/27/17 19:15 08/27/18 19:14 Glucose (Glucose 40% Gel) 15-30 GRAMS 15 GRAMS... UD PRN PO 08/27/17 19:30 09/26/17 19:29 Glucose (Glucose Chew Tab) 4-8 Tablets 4 Tabl... UD PRN PO 08/27/17 19:30 09/26/17 19:29 Dextrose (Dextrose 50% 50ML Syringe) 25-50ML OF 50% DW IV FOR... UD PRN IV 08/27/17 19:30 09/26/17 19:29 Glucagon (Glucagon Inj) 1 mg UD PRN SQ 08/27/17 19:30 09/26/17 19:29 Atorvastatin Calcium (Lipitor Tab) 20 mg HS PO 08/27/17 21:00 09/26/17 20:59 08/28/17 21:02 20 MG Aspirin (Ecotrin Tab) 81 mg QAM PO 08/28/17 09:00 09/27/17 08:59 08/29/17 08:39 81 MG Ioversol (Optiray 320) 100 ml UD PRN IV 08/28/17 04:45 09/01/17 04:44 Metoprolol Tartrate (Lopressor Tab) 25 mg BID PO 08/28/17 21:00 09/27/17 20:59 08/29/17 08:37 25 MG Insulin Aspart (novoLOG ASPART) SLIDING SCALE Q6 SC 08/29/17 00:00 09/28/17 00:00 Sodium Chloride 1,000 ml @ 95 mls/hr [id number] IV 08/30/17 00:00 09/29/17 00:00 Sodium Chloride 250 ml @ 999 mls/hr Q16M PRN IV 08/29/17 12:33 09/28/17 12:32 Atropine Sulfate (Atropine Sulfate 0.1mg/ml Inj) 0.6 mg PRN PRN IV 08/29/17 12:45 09/28/17 12:44 Insulin Glargine (Lantus Solostar Pen) 12 units BID SC 08/30/17 09:00 09/29/17 08:59 Albuterol/ Ipratropium (Duoneb) 3 ml QIDR INH 08/29/17 20:00 09/28/17 19:59 Albuterol/ Ipratropium (Duoneb) 3 ml Q2R PRN INH 08/29/17 17:30 09/28/17 17:29
--- NOTE | 2017-08-29 18:27 | DIAGNOSTIC IMAGING REPORT ---
CHEST ONE VIEW PORTABLE HISTORY: 61 years-old Female WORSENING sob/ wHEEZING acute shortness of breath with wheezing COMPARISON: Chest radiographs 08/27/2017 TECHNIQUE: Portable AP view of the chest FINDINGS: Cardiac silhouette is mildly enlarged, unchanged. There is no pneumothorax. There is blunting of the costophrenic angles suggesting trace effusions. There is mild interstitial coarsening with hazy bibasilar and right perihilar airspace opacities. Bones of the chest appear grossly intact. IMPRESSION: 1. Mild cardiomegaly with interval development of right greater than left mixed interstitial and alveolar opacities suggesting asymmetric pulmonary edema or pneumonia. Follow-up recommended. 2. Trace bilateral pleural effusions. The above report was generated using voice recognition software. It may contain grammatical, syntax or spelling errors. Electronically signed by: Josafat Amin M.D. 08/29/2017 6:26 PM Dictated Date/Time: 08/29/2017 6:23 PM
[2017-08-29] MEDS ORDERED: FUROSEMIDE 40 MG/4 ML VIAL ONE (18:42)
[2017-08-29] MEDS ORDERED: FUROSEMIDE INJ 20 MG in SYRINGE 0 ML IV ONE (18:45)
[2017-08-29] MEDS: ATORVASTATIN 20 MG TAB PO SCH (20:59)
[2017-08-29] MEDS: CEFTRIAXONE SOD INJ 1 GM in DEXTROSE 5% ADD-VANTAGE 50ML 50 ML IV SCH (20:59)
[2017-08-30] VITALS (12 sets, daily range): BP systolic 120–148; BP diastolic 71–79; PULSE 65–82; TEMP 36.6–37.1; O2SAT 83–98
[2017-08-30] MEDS ORDERED: SODIUM CHLORIDE 0.9% 1000ML 1,000 ML IV SCH
[2017-08-30] MEDS: INSULIN ASPART 100 UNITS/ML 3 ML PEN SC SCH ×6 (00:44→21:21)
[2017-08-30] MEDS: ALBUT/IPRATROP 3MG/0.5MG NEB 3 ML VIAL INH SCH ×5 (02:02→19:59)
--- NOTE | 2017-08-30 03:58 | PULMONARY CONSULTATION ---
DATE OF CONSULTATION: 08/29/2017 TIME: 6:00 p.m. REPORT OF CONSULTATION: The patient was seen in room 241, bed 1. HISTORY OF PRESENT ILLNESS: She is a 61-year-old female who is being seen because of shortness of breath. Her history is that she started to feel some weakness and fatigue approximately on August 23. She had some chills. She went to the Emergency Room on the . She had a low-grade temperature at that time of 37.3. She had no urinary symptoms, but she was found to have a urinary tract infection with Klebsiella. She was given Rocephin in the ER and then Keflex was started. The following day, she had chills and aches and shortness of breath with exertion. She began to develop chest discomfort. She also had some headaches. The patient relates that on the , the day she went to the ER, she actually had shivers for 45 minutes. On the , she had some palpitations as well as feeling achy and short of breath. She has not had any cough at all. She presented back to the Emergency Room on the with some chest discomfort as well as the other symptoms. She was also feeling weak and had some hypotension, reportedly at a family doctor's office. The blood pressure was 84/50. Since then, she has been undergoing an evaluation. Cardiology was consulted. She had an echocardiogram done. The echo showed a mildly reduced LV systolic function of 45%-50%. There was grade 2 diastolic dysfunction. It was thought that she had pulmonary hypertension with a right ventricular systolic pressure of 40-50. There was hypokinesis of the anteroseptal and apical grimaldo. Earlier today, she underwent a cardiac catheterization that I am told was essentially normal with no significant blockages. At the present time, the patient seems very short of breath. She does report some wheezing. She is not coughing. The patient tells me that during the cardiac catheterization or soon thereafter, her saturations were as low as 77%. I was unable to find that documented, however. There is no history of prior lung problems. The patient only smoked for 4 years from ages 19 through 23. She has not had any jobs where she was exposed to any dust, fumes or chemicals. PAST MEDICAL HISTORY: 1. Hypertension. 2. Diabetes. 3. Reflux. 4. Anxiety. 5. Depression. 6. Panic attacks. 7. History of ETOH abuse. PAST SURGICAL HISTORY: 1. Tubal ligation. 2. Appendectomy in 2004. 3. [place] teeth removal. SOCIAL HISTORY: Tobacco none since 1978 as noted. Alcohol is described as occasional wine. She does have a history of alcohol abuse as noted. FAMILY HISTORY: Maternal grandmother had a stroke. Father is living, age 81 and the patient believes he has some type of lung problems, though she is not sure if he goes to the doctor. Mother is 81, alive and well. REVIEW OF SYSTEMS: Negative except for the above-mentioned complaints. MEDICATIONS AT HOME: 1. Atorvastatin 20 mg daily. 2. Keflex. 3. Gabapentin 300 mg t.i.d. 4. HCTZ/lisinopril 04/10.5 one daily. 5. Metformin 500 mg b.i.d. 6. Sertraline 100 mg 2 tabs daily. 7. Vitamin B1. PHYSICAL EXAMINATION: GENERAL: The patient is a 61-year-old female who was cooperative, alert and oriented. She looked somewhat winded. She is flushed. Her face is warm to touch. VITAL SIGNS: Maximum temperature yesterday was 38 degrees. Likewise, 2 days ago, the maximum temperature was 38 degrees. HEENT: Pupils were reactive. She appears to have some spider angiomata. Nares were clear. Mouth exam was unremarkable. NECK: Palpation of the neck reveals no lymph nodes. HEART: The cardiac rate was 92 per minute. The rhythm was regular. Blood pressure 151/86. LUNGS: Respiratory rate was 24 per minute at the time of my exam. The lung ludwig surprisingly were clear. She did look somewhat labored. Saturation was 90% on 2 liters. ABDOMEN: Obese. It was soft and nontender. EXTREMITIES: Showed no cyanosis, clubbing or edema. IMAGING STUDIES: Chest x-ray done on the showed no active disease. A venous Doppler was negative. CAT scan of the chest done yesterday showed no evidence of pulmonary embolic disease. There were very minimal ground-glass changes bilaterally. This would be minimally abnormal. I did think that there was the possibility of an infiltrate in the right mid lung field laterally. I cannot exclude atelectasis or scar on the same area, however. LABORATORY DATA: White count on admission was 13.42. Hemoglobin 11.1. Platelets 158,000. As of March 1st, the white count was down to 9.27. Hemoglobin was down to 9.5. Platelets were 129,000. D-dimer was 1210. PT, PTT were normal. Urine showed 3+ glucose, 3+ blood and presence of yeast in the urine. Electrolytes show sodium 137, potassium 3.3, chloride 109, bicarbonate 20. Troponins were elevated to 0.424 when she first came in. Four sets were done and the last one was 0.202. Triglycerides are high at 493. Liver functions are normal. IMPRESSIONS: 1. Shortness of breath of undetermined etiology. 2. Possible infiltrate, right mid lung field -- cannot exclude atelectasis. 3. Elevated right ventricular systolic pressure on echo -- rule out pulmonary hypertension. COMMENTS AND RECOMMENDATIONS: The patient seems quite short of breath, yet her lung ludwig were clear on auscultation. She is ordered nebulizer treatments, which I agree with. She is on ceftriaxone. I am going to check a repeat chest x-ray tomorrow in the event that there is an infiltrate, which has developed. I will check a CBC again in light of the fact that her hemoglobin had dropped from 11.1 down to 9.5. I am also going to check a sed rate. Ultimately, the patient should have pulmonary function tests as an outpatient as part of an overall evaluation of pulmonary hypertension. She also may benefit from an overnight pulse oximetry study or even a sleep study. She has seen Darell Rowan and Dr. Payton previously and likely followup would be advised with them if possible.
[2017-08-30] MEDS: GABAPENTIN 300 MG CAP PO SCH ×3 (07:43→21:19)
[2017-08-30] MEDS: SERTRALINE HCL 100 MG TAB PO SCH (07:43)
[2017-08-30] MEDS: THIAMINE HCL 100 MG TAB PO SCH (07:43)
[2017-08-30] MEDS: METOPROLOL TARTRATE 25 MG TAB PO SCH ×2 (07:43→21:20)
[2017-08-30] MEDS: ASPIRIN 81 MG ECTAB PO SCH (07:44)
[2017-08-30] MEDS: GABAPENTIN 400 MG CAP PO SCH ×3 (07:44→21:19)
[2017-08-30] MEDS ORDERED: NURSING VERBAL MED ORDER ONE ×3 (07:45→10:30)
[2017-08-30] MEDS: INSULIN GLARGINE SOLOSTAR 100 UNITS/ML 3 ML PEN SC SCH ×2 (07:49→21:22)
[2017-08-30 08:31] LABS: HEMATOCRIT 26.9 % (37-47); HEMOGLOBIN 9.2 g/dL (12.0-16.0); MEAN CELL VOLUME 93.7 fL (80-100); MEAN CORPUSCULAR HEMOGLOBIN 32.1 pg (25-34); MEAN CORPUSCULAR HGB CONC 34.2 g/dl (32-36); MEAN PLATELET VOLUME 10.7 fL (7.4-10.4); PLATELET COUNT 200 K/uL (130-400); RED CELL DISTRIBUTION WIDTH CV 13.2 % (11.5-14.5); RED CELL DISTRIBUTION WIDTH SD 45.1 fL (36.4-46.3); WHITE BLOOD COUNT 8.94 K/uL (4.8-10.8)
[2017-08-30 08:33] LABS: BASO % 0.6 %; BASO ABS # 0.05 K/uL (0-0.2); EOS ABS # 0.36 K/uL (0-0.5); IG# 0.22 K/uL (0.00-0.02); LYMPH % 16.3 %; LYMPH ABS # 1.46 K/uL (1.2-3.4); MONO % 13.1 %; MONO ABS # 1.17 K/uL (0.11-0.59); NEUT % 63.5 %; NEUT ABS # 5.68 K/uL (1.4-6.5)
[2017-08-30 08:48] LABS: CALCIUM 7.9 mg/dl (8.5-10.1); CREATININE 0.91 mg/dl (0.60-1.20); POTASSIUM 3.2 mmol/L (3.5-5.1)
--- NOTE | 2017-08-30 09:31 | DIAGNOSTIC IMAGING REPORT ---
CHEST 2 VIEWS ROUTINE CLINICAL HISTORY: 61 years-old Female presenting with sob. TECHNIQUE: PA and lateral views of the chest were obtained. COMPARISON: 08/29/2017. FINDINGS: Atherosclerosis of aortic arch. Cardiac silhouette enlarged. Persistent patchy central right mid and basilar predominant opacities, which localized to the right upper and lower lobes. Trace left pleural effusion may be present. No pneumothorax. Osseous structures normal. Upper abdomen normal. IMPRESSION: 1. Patchy right upper and lower lobe opacities concerning for pneumonia. This is not changed since the prior exam. 2. Cardiomegaly. Electronically signed by: Harlan Ortega M.D. 08/30/2017 9:30 AM Dictated Date/Time: 08/30/2017 9:28 AM
[2017-08-30] MEDS ORDERED: POTASSIUM CHLORIDE 20 MEQ TABCR PO ONE (09:41)
[2017-08-30] MEDS ORDERED: FUROSEMIDE 20 MG TAB PO ONE (09:43)
[2017-08-30] MEDS ORDERED: FUROSEMIDE INJ 20 MG in SYRINGE 0 ML IV STA (10:38)
--- NOTE | 2017-08-30 11:59 | PULMONARY PROGRESS NOTE ---
DATE: 08/30/2017 TIME: 10:10 a.m. SUBJECTIVE: The patient is feeling much less short of breath today than she was last evening. She did receive a dose of IV Lasix last evening and she had a significant diuresis. 3100 mL was reported for the day. She had a net of minus 2000. However, her weight today is the same as yesterday, but they were done on a bed scale when yesterday was done on a standing scale. She states she awakened during the night and felt a lot of wheezing. She tells me that she asked for a nebulizer treatment. I did not find this documented in the nursing notes from last night. Review of her medicine list does show she received a treatment at about 2:00 a.m. OBJECTIVE: GENERAL: The patient is sleepy. She appears comfortable and much less short of breath than yesterday. VITAL SIGNS: Temperature is 37 degrees. Maximum temperature yesterday was 37.1. She is not as flushed in the face as yesterday. HEART: Heart rate is 73 per minute. The rhythm is regular. Blood pressure 148/79. LUNGS: Auscultation of the lung ludwig reveals no wheezing. There were mild rales heard. Saturation was 95% on 2 liters done by myself. EXTREMITIES: Showed no edema. LABORATORY DATA: Electrolytes today show sodium 136, potassium 3.2, chloride 104, bicarb 23. Her proBNP last evening was significantly elevated at 3267. IMAGING DATA: She had a chest x-ray last evening that showed infiltrates much greater on the right than the left. It was unclear if this was asymmetric pulmonary edema or pneumonia. An x-ray done this morning looks relatively similar to last evening. Thus, despite the diuresis, she did not show an improvement in the chest x-ray, at least not significant improvement. ASSESSMENT: 1. Shortness of breath likely secondary to volume overload/congestive heart failure. 2. Right lung infiltrate -- questionable fluid versus pneumonia. 3. Rule out pulmonary hypertension. Case was discussed with Dr. Vasquez. He is going to give an additional dose of Lasix this morning. She is in for potassium supplementation. She still has the neb treatments ordered. She remains on ceftriaxone. 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 Continue to monitor the intake and output.
--- NOTE | 2017-08-30 15:29 | Pharmacy Progress Note ---
Glycemic: Assessment & Plan Date of Service Aug 30, 2017. Assessment & Plan The patient is currently receiving ~45 units of insulin per day. BSGs ranging 134 - 235 mg/dl over the past 24hrs. * Basal insulin: Lantus 12 units every 12 hours * Correctional Insulin: Novolog Correction per scale ACHS Goal Range: Low 110 mg/dL - High 140 mg/dL Correction Factor: 20 mg/dL/unit * Prandial insulin: Per carb ratio of 1 unit per 7 grams CHO consumed BSGs continue to improve, no changes needed to inpatient regimen at this time. Pharmacy will continue to monitor patient daily and write orders per [facility] inpatient glycemic control protocol. Thanks. * Please note that the plan above was derived based on current level of insulin resistance and hospital stress. These recommendations are appropriate for inpatient admission only. Plan of care upon discharge will need to be reassessed to avoid potential outpatient hypo/hyperglycemia.
--- NOTE | 2017-08-30 17:39 | Progress Note ---
Medicine Progress Note Date & Time of Visit: Aug 30, 2017 at 09:29. Subjective Pt was seen and examined Sitting in bed with no distress She said that her breathing seems to improve She said that she feels a little better after the Lasix last night she said that she was wheezing early this morning Denies any chest pain, palpitation and fever Objective Last 8 Hrs Date Time Temp Pulse Resp B/P (MAP) Pulse Ox O2 Delivery O2 Flow Rate FiO2 08/30/17 16:29 36.6 74 20 120/76 (91) 97 Nasal Cannula 1.0 08/30/17 16:05 Nasal Cannula 1.0 08/30/17 14:30 71 16 98 Nasal Cannula 2.0 08/30/17 12:15 36.9 70 18 139/74 (95) 97 08/30/17 12:03 Nasal Cannula 2.0 08/30/17 11:07 79 16 83 Room Air Physical Exam: General- no acute distress Head- atraumatic Eyes- PERRL, EOMI ENT- oropharynx clear Neck- supple, no JVD Lungs- No wheezing Heart- regular rhythm; no murmur Abdomen- normal bowel sounds, soft Extremities- no calf tenderness Neuro- alert, oriented x 3; PERRL, EOMI Skin- warm & dry Laboratory Results: Last 24 Hours Test 08/29/17 19:13 08/29/17 20:16 08/30/17 00:17 08/30/17 06:22 Pro-B-Type Natriuretic Peptide 3267 pg/ml Bedside Glucose 159 mg/dl 150 mg/dl 156 mg/dl Test 08/30/17 06:51 08/30/17 16:36 White Blood Count 8.94 K/uL Red Blood Count 2.87 M/uL Hemoglobin 9.2 g/dL Hematocrit 26.9 % Mean Corpuscular Volume 93.7 fL Mean Corpuscular Hemoglobin 32.1 pg Mean Corpuscular Hemoglobin Concent 34.2 g/dl Platelet Count 200 K/uL Mean Platelet Volume 10.7 fL Neutrophils (%) (Auto) 63.5 % Lymphocytes (%) (Auto) 16.3 % Monocytes (%) (Auto) 13.1 % Eosinophils (%) (Auto) 4.0 % Basophils (%) (Auto) 0.6 % Neutrophils # (Auto) 5.68 K/uL Lymphocytes # (Auto) 1.46 K/uL Monocytes # (Auto) 1.17 K/uL Eosinophils # (Auto) 0.36 K/uL Basophils # (Auto) 0.05 K/uL RDW Standard Deviation 45.1 fL RDW Coefficient of Variation 13.2 % Immature Granulocyte % (Auto) 2.5 % Immature Granulocyte # (Auto) 0.22 K/uL Erythrocyte Sedimentation Rate 60 mm/hr Sodium Level 136 mmol/L Potassium Level 3.2 mmol/L Chloride Level 104 mmol/L Carbon Dioxide Level 23 mmol/L Anion Gap 9.0 mmol/L Blood Urea Nitrogen 16 mg/dl Creatinine 0.91 mg/dl Est Creatinine Clear Calc Drug Dose 69.9 ml/min Estimated GFR () 78.9 Estimated GFR (Non- 68.1 BUN/Creatinine Ratio 17.7 Random Glucose 143 mg/dl Calcium Level 7.9 mg/dl Bedside Glucose 164 mg/dl Assessment & Plan Chest pain associated with dyspnea Need to r/o ACS Has multiples risk factors include DM II, HTN, HLD Troponin on admission 0.424, then trending down 0.292 CTA chest showed no acute aortic pathology or evidence of pulmonary thromboembolic disease EKG did not showed any ischemic changes Currently no chest pain case discussed with cardiology 08/29 Had Cardiac cath done today showed patent vessels Cardiology on board and recommended medical management Continue aspirin/statin/metoprolol Continue monitor in tele ECHO showed * Normal LV chamber size with mild concentric LVH. * Mildly reduced LV systolic function, EF 45-50%. * Moderate hypokinesis of the anteroseptal and apical grimaldo, otherwise, hyperdynamic wall motion. * Grade II diastolic dysfunction. * No significant valvular pathology. * Pulmonary hypertension is present with a RVSP of 40-50 mmHg. IVC not well visualized. UTI: Positive UA on 08/25 from the ER that grew Klebsiella She was discharged on keflex Receiving rocephin Blood cx no growth urine cx positive for delma Denies any urinary symptoms (No need to treat for the delma albican) WBC trending normal Will d/c abx [id number] Mostly related to fluid overload vs Pneumonia SOB improved after lasix given CXR showed patchy right upper and lower lobe opacities concerning for pneumonia Elevated BNP in 3K Will give an additional lasix Continue Duoneb treatment Pulmonology on board Continue Rocephin for now Repeat CXR on Friday DM II: Recent Hba1c 8.5 Oral DM on hold Pharmacy on board for glycemic management Continue monitor BS NELL: Creatine during last ER visit was 1.8, Baseline Cr ~0.9 Creatine on admission 1.29 renal u/s no evidence of hydronephrosis Creatine 0.91 HCTZ on hold. Resume lisinopril lasix given Monitor BMP Resolved HYPOKALEMIA K replaced monitor BMP ELEVATED D-DIMER Related to acute illness/NELL CTA chest negative for PE Doppler LE negative for DVT HTN: BP starting to elevate Lisinopril/hctz on hold due to NELL Resume Lisinopril tomorrow D/C IVF HLD: Elevated triglycerides Will defer to PCP to repeat triglycerides or to start on fenofibrate Cont atorvastatin Depression, anxiety: H/o overdose on benzodiazepines in the past Cont home dose SSRI, gabapentin Stable DVT Ppx: SQ heparin Code status: FULL Dispo: Continue to monitor in tele Current Inpatient Medications: Current Inpatient Medications Medications (Trade) Dose Ordered Sig/Miranda Route Start Time Stop Time Status Last Admin Dose Admin Heparin Sodium (Porcine) (Heparin Sq 5000 Unit/0.5ml) 5,000 unit Q8 SQ 08/27/17 22:00 09/26/17 21:59 Future Hold 08/29/17 21:03 5,000 UNIT Acetaminophen (Tylenol Tab) 650 mg Q4H PRN PO 08/27/17 17:30 09/26/17 17:29 08/29/17 00:14 650 MG Al Hydrox/Mg Hydrox/Simethicone (Maalox Max Susp) 15 ml Q4H PRN PO 08/27/17 17:30 09/26/17 17:29 Ondansetron HCl (Zofran Inj) 4 mg Q6H PRN IV 08/27/17 17:30 09/26/17 17:29 Miscellaneous Information (Consult Glycemic Management Pharmacy) 1 ea UD PRN N/A 08/27/17 17:47 09/26/17 17:46 Ceftriaxone Sodium 1 gm/ Dextrose 50 ml @ 100 mls/hr Q24H IV 08/27/17 20:00 09/01/17 19:59 08/29/17 20:59 100 MLS/HR Gabapentin (Neurontin Cap) 300 mg TID PO 08/27/17 21:00 09/26/17 20:59 08/30/17 13:04 300 MG Gabapentin (Neurontin Cap) 400 mg TID PO 08/27/17 21:00 09/26/17 20:59 08/30/17 13:04 400 MG Sertraline HCl (Zoloft Tab) 200 mg DAILY PO 08/28/17 09:00 09/27/17 08:59 08/30/17 07:43 200 MG Thiamine HCl (Vitamin B-1 Tab) 100 mg DAILY PO 08/28/17 09:00 09/27/17 08:59 08/30/17 07:43 100 MG Miscellaneous (Iv Fluids Completed) 1 ea PRN PRN N/A 08/27/17 19:15 08/27/18 19:14 Glucose (Glucose 40% Gel) 15-30 GRAMS 15 GRAMS... UD PRN PO 08/27/17 19:30 09/26/17 19:29 Glucose (Glucose Chew Tab) 4-8 Tablets 4 Tabl... UD PRN PO 08/27/17 19:30 09/26/17 19:29 Dextrose (Dextrose 50% 50ML Syringe) 25-50ML OF 50% DW IV FOR... UD PRN IV 08/27/17 19:30 09/26/17 19:29 Glucagon (Glucagon Inj) 1 mg UD PRN SQ 08/27/17 19:30 09/26/17 19:29 Atorvastatin Calcium (Lipitor Tab) 20 mg HS PO 08/27/17 21:00 09/26/17 20:59 08/29/17 20:59 20 MG Aspirin (Ecotrin Tab) 81 mg QAM PO 08/28/17 09:00 09/27/17 08:59 08/30/17 07:44 81 MG Ioversol (Optiray 320) 100 ml UD PRN IV 08/28/17 04:45 09/01/17 04:44 Metoprolol Tartrate (Lopressor Tab) 25 mg BID PO 08/28/17 21:00 09/27/17 20:59 08/30/17 07:43 25 MG Sodium Chloride 250 ml @ 999 mls/hr Q16M PRN IV 08/29/17 12:33 09/28/17 12:32 Atropine Sulfate (Atropine Sulfate 0.1mg/ml Inj) 0.6 mg PRN PRN IV 08/29/17 12:45 09/28/17 12:44 Insulin Glargine (Lantus Solostar Pen) 12 units BID SC 08/30/17 09:00 09/29/17 08:59 08/30/17 07:49 12 UNITS Albuterol/ Ipratropium (Duoneb) 3 ml QIDR INH 08/29/17 20:00 09/28/17 19:59 08/30/17 14:30 3 ML Albuterol/ Ipratropium (Duoneb) 3 ml Q2R PRN INH 08/29/17 17:30 09/28/17 17:29 Insulin Aspart (novoLOG ASPART) SLIDING SCALE ACHS SC 08/30/17 11:00 09/28/17 00:00 08/30/17 12:09 11 UNITS
[2017-08-30] MEDS: CEFTRIAXONE SOD INJ 1 GM in DEXTROSE 5% ADD-VANTAGE 50ML 50 ML IV SCH (20:10)
[2017-08-30] MEDS: ACETAMINOPHEN 325 MG TAB PO PRN (20:10)
[2017-08-30] MEDS: ATORVASTATIN 20 MG TAB PO SCH (21:20)
[2017-08-31] VITALS (10 sets, daily range): BP systolic 122–154; BP diastolic 71–93; PULSE 61–84; TEMP 36.4–36.9; O2SAT 90–98
[2017-08-31] MEDS: ALBUT/IPRATROP 3MG/0.5MG NEB 3 ML VIAL INH SCH ×4 (07:04→20:01)
[2017-08-31] MEDS: GABAPENTIN 400 MG CAP PO SCH ×3 (08:08→21:16)
[2017-08-31] MEDS: ASPIRIN 81 MG ECTAB PO SCH (08:09)
[2017-08-31] MEDS: THIAMINE HCL 100 MG TAB PO SCH (08:09)
[2017-08-31] MEDS: METOPROLOL TARTRATE 25 MG TAB PO SCH ×2 (08:09→21:16)
[2017-08-31] MEDS: GABAPENTIN 300 MG CAP PO SCH ×3 (08:09→21:16)
[2017-08-31] MEDS: SERTRALINE HCL 100 MG TAB PO SCH (08:10)
[2017-08-31] MEDS: INSULIN GLARGINE SOLOSTAR 100 UNITS/ML 3 ML PEN SC SCH ×2 (08:20→21:16)
[2017-08-31] MEDS: INSULIN ASPART 100 UNITS/ML 3 ML PEN SC SCH ×4 (08:20→21:15)
[2017-08-31 08:29] LABS: CALCIUM 8.6 mg/dl (8.5-10.1); CREATININE 0.91 mg/dl (0.60-1.20); POTASSIUM 3.4 mmol/L (3.5-5.1)
--- NOTE | 2017-08-31 12:36 | PULMONARY PROGRESS NOTE ---
DATE: 08/31/2017 TIME: 10:50 a.m. SUBJECTIVE: The patient feels much better. She is less short of breath. She is coughing less. Overall, she feels this is definitely her best day. She has expectorated just a very small amount of sputum. She is still somewhat sleepy during the day. OBJECTIVE: GENERAL: The patient is comfortable. She has a iain complexion. VITAL SIGNS: Temperature is 36.8. HEART: The heart rate was 84 per minute. The rhythm is regular. CHEST: Auscultation of the lung ludwig revealed good breath sounds. There were very mild rales heard on the right. Blood pressure 138/84. Respiratory rate 20. Oxygen saturation 93% on room air. EXTREMITIES: Showed no cyanosis, clubbing or edema. LABORATORY DATA: The patient did diurese 1500 mL yesterday. Weight today was reportedly 92.6 kilograms and yesterday was 95.3 kilograms. Electrolytes today showed sodium 140, potassium 3.4, chloride 106, and bicarbonate 25. BUN 17, creatinine 0.91. IMPRESSIONS: 1. Right upper lobe and right lower lobe infiltrates -- questionable pneumonia versus volume overload or perhaps a combination of both. 2. Rule out pulmonary hypertension. COMMENTS AND RECOMMENDATIONS: The patient is clinically much improved. Her x-ray yesterday was still very abnormal. We will repeat another one for tomorrow morning. Assuming she continues to feel well and with improvement in the x-ray, she likely would be okay for discharge. For now, would continue with the antibiotics and nebulizer treatments. The patient is hoping to follow up with Dr. Payton or Dr. Darell Rowan as an outpatient. I am off service after today. Pulmonary will only see her again if requested.
[2017-08-31] MEDS ORDERED: POTASSIUM CHLORIDE 20 MEQ TABCR PO ONE (13:45)
--- NOTE | 2017-08-31 14:09 | Pharmacy Progress Note ---
Pharmacy Glycemic Sign Off Nt Date of Service Aug 31, 2017. Assessment & Plan ASSESSMENT: * Pharmacy was consulted by Ysabel Johnson on 08/27/17 for glycemic control and to write orders per [facility] inpatient glycemic control protocol. * Major changes made by pharmacy to antidiabetic regimen include: * held PO agents, initiated basal/bolus based on wt * Patient has been receiving/requiring ~50 units of insulin per day for adequate glycemic control * BSGs ranging 156 - 231 mg/dl * Regimen has only required minor adjustments over the past 48hrs to achieve this level of control * Do not anticipate further changes in patient status that would quickly deteriorate glycemic control (i.e. patient to be NPO for upcoming procedure, steroids tapering, starting tube feedings, etc). * Please see recommendations for outpatient antidiabetic regimen below. PLAN FOR INPATIENT GLYCEMIC CONTROL: No changes needed to current regimen. * Continue basal insulin with Lantus 12 units SQ BID * Continue NovoLog per scale ACHS/Q6hrs while NPO * Goal range = 110 140 mg/dl * CF = 20 mg/dl/unit * CR = 1 unit for ever 7 g CHO consumed * A1c added to discharge instructions to be communicated to PCP. * Pharmacy is signing off of glycemic consult and will no longer be making adjustments to inpatient regimen. Please feel free to re-consult if needed. Thank you. DISCHARGE RECOMMENDATIONS: * A1c 8.5 % on 08/28/17 * Recommend increasing Metformin to 1g BID along with lifestyle modifications
--- NOTE | 2017-08-31 14:36 | Progress Note ---
Medicine Progress Note Date & Time of Visit: Aug 31, 2017 at 14:27. Subjective Pt was seen and examined Lying in bed with no distress Pt said that she feels much better today She said that she walked around today in the hallway with no discomfort She said that she has been on RA air and her breathing feels good Denies any chest pain, palpitation and sob Objective Last 8 Hrs Date Time Temp Pulse Resp B/P (MAP) Pulse Ox O2 Delivery O2 Flow Rate FiO2 08/31/17 12:03 Room Air 08/31/17 12:00 36.8 84 18 130/79 (96) 95 08/31/17 11:18 75 16 94 Room Air 08/31/17 08:06 Room Air 08/31/17 07:56 36.8 77 20 138/84 (102) 93 Room Air 08/31/17 07:04 72 16 97 Nasal Cannula 1.5 Physical Exam: General- no acute distress Head- atraumatic Eyes- PERRL, EOMI ENT- oropharynx clear Neck- supple, no JVD Lungs- No wheezing Heart- regular rhythm; no murmur Abdomen- normal bowel sounds, soft Extremities- no calf tenderness Neuro- alert, oriented x 3; PERRL, EOMI Skin- warm & dry Laboratory Results: Last 24 Hours Test 08/30/17 16:36 08/30/17 20:13 08/31/17 07:10 08/31/17 07:36 Bedside Glucose 164 mg/dl 146 mg/dl 127 mg/dl Sodium Level 140 mmol/L Potassium Level 3.4 mmol/L Chloride Level 106 mmol/L Carbon Dioxide Level 25 mmol/L Anion Gap 9.0 mmol/L Blood Urea Nitrogen 17 mg/dl Creatinine 0.91 mg/dl Est Creatinine Clear Calc Drug Dose 68.8 ml/min Estimated GFR () 78.9 Estimated GFR (Non- 68.1 BUN/Creatinine Ratio 19.0 Random Glucose 130 mg/dl Calcium Level 8.6 mg/dl Test 08/31/17 11:11 Bedside Glucose 213 mg/dl Assessment & Plan Chest pain associated with dyspnea Need to r/o ACS Has multiples risk factors include DM II, HTN, HLD Troponin on admission 0.424, then trending down 0.292 CTA chest showed no acute aortic pathology or evidence of pulmonary thromboembolic disease EKG did not showed any ischemic changes Currently no chest pain case discussed with cardiology 08/31 Had Cardiac cath done showed patent vessels Cardiology on board and recommended medical management Continue aspirin/statin/metoprolol Continue monitor in tele Resolved ECHO showed * Normal LV chamber size with mild concentric LVH. * Mildly reduced LV systolic function, EF 45-50%. * Moderate hypokinesis of the anteroseptal and apical grimaldo, otherwise, hyperdynamic wall motion. * Grade II diastolic dysfunction. * No significant valvular pathology. * Pulmonary hypertension is present with a RVSP of 40-50 mmHg. IVC not well visualized. UTI: Positive UA on 08/25 from the ER that grew Klebsiella She was discharged on keflex Receiving rocephin Blood cx no growth urine cx positive for delma Denies any urinary symptoms (No need to treat for the delma albican) WBC trending normal DYSPNEA Mostly related to fluid overload vs Pneumonia SOB improved after lasix given CXR showed patchy right upper and lower lobe opacities concerning for pneumonia Elevated BNP in 3K Will give an additional lasix Continue Duoneb treatment Pulmonology on board Continue Rocephin for now Repeat CXR on Thursday 08/31 Clinically improved Denies any SOB Lasix given yesterday Will repeat CXR in Continue rocephin DM II: Recent Hba1c 8.5 Oral DM on hold Pharmacy on board for glycemic management Continue monitor BS NELL: Creatine during last ER visit was 1.8, Baseline Cr ~0.9 Creatine on admission 1.29 renal u/s no evidence of hydronephrosis Creatine 0.91 HCTZ on hold. Resume lisinopril lasix given Monitor BMP Resolved HYPOKALEMIA K replaced monitor BMP ELEVATED D-DIMER Related to acute illness/NELL CTA chest negative for PE Doppler LE negative for DVT HTN: BP starting to elevate Lisinopril/hctz on hold due to NELL Resume Lisinopril tomorrow D/C IVF HLD: Elevated triglycerides Will defer to PCP to repeat triglycerides or to start on fenofibrate Cont atorvastatin Depression, anxiety: H/o overdose on benzodiazepines in the past Cont home dose SSRI, gabapentin Stable DVT Ppx: SQ heparin Code status: FULL Dispo: Continue to monitor in tele Current Inpatient Medications: Current Inpatient Medications Medications (Trade) Dose Ordered Sig/Miranda Route Start Time Stop Time Status Last Admin Dose Admin Heparin Sodium (Porcine) (Heparin Sq 5000 Unit/0.5ml) 5,000 unit Q8 SQ 08/27/17 22:00 09/26/17 21:59 Future Hold 08/29/17 21:03 5,000 UNIT Acetaminophen (Tylenol Tab) 650 mg Q4H PRN PO 08/27/17 17:30 09/26/17 17:29 08/30/17 20:10 650 MG Al Hydrox/Mg Hydrox/Simethicone (Maalox Max Susp) 15 ml Q4H PRN PO 08/27/17 17:30 09/26/17 17:29 Ondansetron HCl (Zofran Inj) 4 mg Q6H PRN IV 08/27/17 17:30 09/26/17 17:29 Ceftriaxone Sodium 1 gm/ Dextrose 50 ml @ 100 mls/hr Q24H IV 08/27/17 20:00 09/01/17 19:59 08/30/17 20:10 100 MLS/HR Gabapentin (Neurontin Cap) 300 mg TID PO 08/27/17 21:00 09/26/17 20:59 08/31/17 13:25 300 MG Gabapentin (Neurontin Cap) 400 mg TID PO 08/27/17 21:00 09/26/17 20:59 08/31/17 12:22 400 MG Sertraline HCl (Zoloft Tab) 200 mg DAILY PO 08/28/17 09:00 09/27/17 08:59 08/31/17 08:10 200 MG Thiamine HCl (Vitamin B-1 Tab) 100 mg DAILY PO 08/28/17 09:00 09/27/17 08:59 08/31/17 08:09 100 MG Miscellaneous (Iv Fluids Completed) 1 ea PRN PRN N/A 08/27/17 19:15 08/27/18 19:14 Glucose (Glucose 40% Gel) 15-30 GRAMS 15 GRAMS... UD PRN PO 08/27/17 19:30 09/26/17 19:29 Glucose (Glucose Chew Tab) 4-8 Tablets 4 Tabl... UD PRN PO 08/27/17 19:30 09/26/17 19:29 Dextrose (Dextrose 50% 50ML Syringe) 25-50ML OF 50% DW IV FOR... UD PRN IV 08/27/17 19:30 09/26/17 19:29 Glucagon (Glucagon Inj) 1 mg UD PRN SQ 08/27/17 19:30 09/26/17 19:29 Atorvastatin Calcium (Lipitor Tab) 20 mg HS PO 08/27/17 21:00 09/26/17 20:59 08/30/17 21:20 20 MG Aspirin (Ecotrin Tab) 81 mg QAM PO 08/28/17 09:00 09/27/17 08:59 08/31/17 08:09 81 MG Ioversol (Optiray 320) 100 ml UD PRN IV 08/28/17 04:45 09/01/17 04:44 Metoprolol Tartrate (Lopressor Tab) 25 mg BID PO 08/28/17 21:00 09/27/17 20:59 08/31/17 08:09 25 MG Sodium Chloride 250 ml @ 999 mls/hr Q16M PRN IV 08/29/17 12:33 09/28/17 12:32 Atropine Sulfate (Atropine Sulfate 0.1mg/ml Inj) 0.6 mg PRN PRN IV 08/29/17 12:45 09/28/17 12:44 Insulin Glargine (Lantus Solostar Pen) 12 units BID SC 08/30/17 09:00 09/29/17 08:59 08/31/17 08:20 12 UNITS Albuterol/ Ipratropium (Duoneb) 3 ml QIDR INH 08/29/17 20:00 09/28/17 19:59 08/31/17 11:18 3 ML Albuterol/ Ipratropium (Duoneb) 3 ml Q2R PRN INH 08/29/17 17:30 09/28/17 17:29 Insulin Aspart (novoLOG ASPART) SLIDING SCALE ACHS SC 08/30/17 11:00 09/28/17 00:00 08/31/17 12:22 7 UNITS
[2017-08-31] MEDS: CEFTRIAXONE SOD INJ 1 GM in DEXTROSE 5% ADD-VANTAGE 50ML 50 ML IV SCH (20:09)
[2017-08-31] MEDS: ATORVASTATIN 20 MG TAB PO SCH (21:17)
[2017-09-01 03:50] VITALS: BP_SYST 138; BP_SYST 168; BP_DIAS 68; BP_DIAS 78; PULSE 87; TEMP 36.9; O2SAT 91
[2017-09-01] MEDS: ACETAMINOPHEN 325 MG TAB PO PRN ×2 (03:54→11:31)
[2017-09-01 06:28] LABS: CALCIUM 8.3 mg/dl (8.5-10.1); CREATININE 0.89 mg/dl (0.60-1.20); POTASSIUM 3.7 mmol/L (3.5-5.1)
[2017-09-01 07:19] VITALS: PULSE 78; O2SAT 93
[2017-09-01] MEDS: ALBUT/IPRATROP 3MG/0.5MG NEB 3 ML VIAL INH SCH ×2 (07:19→11:10)
[2017-09-01 07:42] VITALS: BP 144/74; PULSE 72; TEMP 36.7; O2SAT 92
--- NOTE | 2017-09-01 08:30 | DIAGNOSTIC IMAGING REPORT ---
CHEST 2 VIEWS ROUTINE CLINICAL HISTORY: 61 years-old Female presenting with f/u infiltrates. TECHNIQUE: PA and lateral views of the chest were obtained. COMPARISON: 08/30/2017. FINDINGS: Atherosclerosis of aortic arch. Cardiac silhouette enlarged. Interval decrease in patchy right mid and lower lung predominant opacities. Trace bilateral pleural effusions. No pneumothorax. Osseous structures normal. External leads project over the right lung base degrading evaluation. IMPRESSION: 1. Interval decrease in patchy right mid and lower lung infiltrates compatible with resolving pneumonia. 2. Trace bilateral pleural effusions. 3. Cardiomegaly. No go pulmonary edema. Electronically signed by: Harlan Ortega M.D. 09/01/2017 8:29 AM Dictated Date/Time: 09/01/2017 8:27 AM
[2017-09-01] MEDS: SERTRALINE HCL 100 MG TAB PO SCH (08:42)
[2017-09-01] MEDS: THIAMINE HCL 100 MG TAB PO SCH (08:42)
[2017-09-01] MEDS: GABAPENTIN 300 MG CAP PO SCH ×2 (08:42→13:12)
[2017-09-01] MEDS: GABAPENTIN 400 MG CAP PO SCH ×2 (08:42→13:12)
[2017-09-01] MEDS: INSULIN ASPART 100 UNITS/ML 3 ML PEN SC SCH ×2 (08:43→13:11)
[2017-09-01] MEDS: ASPIRIN 81 MG ECTAB PO SCH (08:44)
[2017-09-01] MEDS: INSULIN GLARGINE SOLOSTAR 100 UNITS/ML 3 ML PEN SC SCH (08:44)
[2017-09-01] MEDS: METOPROLOL TARTRATE 25 MG TAB PO SCH (08:45)
[2017-09-01] MEDS ORDERED: LISINOPRIL/HCTZ 10/12.5MG TAB PO SCH (09:00)
[2017-09-01 11:12] VITALS: PULSE 78; O2SAT 96
[2017-09-01 11:43] VITALS: BP 144/82; PULSE 80; TEMP 36.3; O2SAT 91
[2017-09-01] MEDS ORDERED: AZITHROMYCIN 250 MG TAB PO ONE ×2 (13:45→14:30)
--- NOTE | 2017-09-01 14:04 | Progress Note ---
Medicine Progress Note Date & Time of Visit: Sep 01, 2017 at 13:41. Subjective Pt was seen and examined Sitting in bed comfortable with no distress Pt said that she feels much better She said that she does not have any SOB She said that her breathing feels much better She said that she has been walking in the hallway with no distress Denies any chest pain, palpitation, dizziness and SOB Objective Last 8 Hrs Date Time Temp Pulse Resp B/P (MAP) Pulse Ox O2 Delivery O2 Flow Rate FiO2 09/01/17 12:00 Room Air 09/01/17 11:43 36.3 80 18 144/82 (102) 91 Room Air 09/01/17 11:12 78 16 96 Room Air 09/01/17 08:00 Room Air 09/01/17 07:42 36.7 72 18 144/74 (97) 92 Room Air 09/01/17 07:19 78 16 93 Room Air Physical Exam: General- no acute distress Head- atraumatic Eyes- PERRL, EOMI ENT- oropharynx clear Neck- supple, no JVD Lungs- No wheezing Heart- regular rhythm; no murmur Abdomen- normal bowel sounds, soft Extremities- no calf tenderness Neuro- alert, oriented x 3; PERRL, EOMI Skin- warm & dry Laboratory Results: Last 24 Hours Test 08/31/17 16:05 08/31/17 20:12 09/01/17 05:24 09/01/17 06:07 Bedside Glucose 142 mg/dl 149 mg/dl 126 mg/dl Sodium Level 138 mmol/L Potassium Level 3.7 mmol/L Chloride Level 107 mmol/L Carbon Dioxide Level 24 mmol/L Anion Gap 7.0 mmol/L Blood Urea Nitrogen 16 mg/dl Creatinine 0.89 mg/dl Est Creatinine Clear Calc Drug Dose 70.5 ml/min Estimated GFR () 81.1 Estimated GFR (Non- 70.0 BUN/Creatinine Ratio 17.8 Random Glucose 112 mg/dl Calcium Level 8.3 mg/dl Test 09/01/17 11:06 Bedside Glucose 107 mg/dl Assessment & Plan Chest pain associated with dyspnea Need to r/o ACS Has multiples risk factors include DM II, HTN, HLD Troponin on admission 0.424, then trending down 0.292 CTA chest showed no acute aortic pathology or evidence of pulmonary thromboembolic disease EKG did not showed any ischemic changes Currently no chest pain case discussed with cardiology 09/01 Had Cardiac cath done showed patent vessels Cardiology on board and recommended medical management Continue aspirin/statin/metoprolol Continue monitor in tele Resolved ECHO showed * Normal LV chamber size with mild concentric LVH. * Mildly reduced LV systolic function, EF 45-50%. * Moderate hypokinesis of the anteroseptal and apical grimaldo, otherwise, hyperdynamic wall motion. * Grade II diastolic dysfunction. * No significant valvular pathology. * Pulmonary hypertension is present with a RVSP of 40-50 mmHg. IVC not well visualized. UTI: Positive UA on 08/25 from the ER that grew Klebsiella She was discharged on keflex Receiving rocephin Blood cx no growth urine cx positive for delma Denies any urinary symptoms (No need to treat for the delma albican) WBC trending normal DYSPNEA Mostly related to fluid overload vs Pneumonia SOB improved after lasix given CXR showed patchy right upper and lower lobe opacities concerning for pneumonia Elevated BNP in 3K Will give an additional lasix Continue Duoneb treatment Pulmonology on board Continue Rocephin for now Repeat CXR on Friday 09/01 Possible due to PNA vs fluid overload Repeat CXR showed interval decrease in patchy right mid and lower lung infiltrates compatible with resolving pneumonia. Clinically improved Denies any SOB Lasix given yesterday On IV rocephin day 5 Will discharge on 2 days Zithromax DM II: Recent Hba1c 8.5 Oral DM on hold Pharmacy on board for glycemic management Continue monitor BS NELL: Creatine during last ER visit was 1.8, Baseline Cr ~0.9 Creatine on admission 1.29 renal u/s no evidence of hydronephrosis Creatine 0.91 HCTZ on hold. Resume lisinopril lasix given Monitor BMP Resolved HYPOKALEMIA K replaced monitor BMP Will discharge on K supplement to take on the day with lasix. ELEVATED D-DIMER Related to acute illness/NELL CTA chest negative for PE Doppler LE negative for DVT HTN: BP starting to elevate Lisinopril/hctz on hold due to NELL Resumed Lisinopril/HCTZ D/C IVF HLD: Elevated triglycerides Will defer to PCP to repeat triglycerides or to start on fenofibrate Cont atorvastatin Depression, anxiety: H/o overdose on benzodiazepines in the past Cont home dose SSRI, gabapentin Stable DVT Ppx: SQ heparin Code status: FULL Dispo: Discharge home today Current Inpatient Medications: Current Inpatient Medications Medications (Trade) Dose Ordered Sig/Miranda Route Start Time Stop Time Status Last Admin Dose Admin Heparin Sodium (Porcine) (Heparin Sq 5000 Unit/0.5ml) 5,000 unit Q8 SQ 08/27/17 22:00 09/26/17 21:59 Future Hold 08/29/17 21:03 5,000 UNIT Acetaminophen (Tylenol Tab) 650 mg Q4H PRN PO 08/27/17 17:30 09/26/17 17:29 09/01/17 11:31 650 MG Al Hydrox/Mg Hydrox/Simethicone (Maalox Max Susp) 15 ml Q4H PRN PO 08/27/17 17:30 09/26/17 17:29 Ondansetron HCl (Zofran Inj) 4 mg Q6H PRN IV 08/27/17 17:30 09/26/17 17:29 Ceftriaxone Sodium 1 gm/ Dextrose 50 ml @ 100 mls/hr Q24H IV 08/27/17 20:00 09/01/17 19:59 08/31/17 20:09 100 MLS/HR Gabapentin (Neurontin Cap) 300 mg TID PO 08/27/17 21:00 09/26/17 20:59 09/01/17 13:12 300 MG Gabapentin (Neurontin Cap) 400 mg TID PO 08/27/17 21:00 09/26/17 20:59 09/01/17 13:12 400 MG Sertraline HCl (Zoloft Tab) 200 mg DAILY PO 08/28/17 09:00 09/27/17 08:59 09/01/17 08:42 200 MG Thiamine HCl (Vitamin B-1 Tab) 100 mg DAILY PO 08/28/17 09:00 09/27/17 08:59 09/01/17 08:42 100 MG Miscellaneous (Iv Fluids Completed) 1 ea PRN PRN N/A 08/27/17 19:15 08/27/18 19:14 Glucose (Glucose 40% Gel) 15-30 GRAMS 15 GRAMS... UD PRN PO 08/27/17 19:30 09/26/17 19:29 Glucose (Glucose Chew Tab) 4-8 Tablets 4 Tabl... UD PRN PO 08/27/17 19:30 09/26/17 19:29 Dextrose (Dextrose 50% 50ML Syringe) 25-50ML OF 50% DW IV FOR... UD PRN IV 08/27/17 19:30 09/26/17 19:29 Glucagon (Glucagon Inj) 1 mg UD PRN SQ 08/27/17 19:30 09/26/17 19:29 Atorvastatin Calcium (Lipitor Tab) 20 mg HS PO 08/27/17 21:00 09/26/17 20:59 08/31/17 21:17 20 MG Aspirin (Ecotrin Tab) 81 mg QAM PO 08/28/17 09:00 09/27/17 08:59 09/01/17 08:44 81 MG Metoprolol Tartrate (Lopressor Tab) 25 mg BID PO 08/28/17 21:00 09/27/17 20:59 09/01/17 08:45 25 MG Sodium Chloride 250 ml @ 999 mls/hr Q16M PRN IV 08/29/17 12:33 09/28/17 12:32 Atropine Sulfate (Atropine Sulfate 0.1mg/ml Inj) 0.6 mg PRN PRN IV 08/29/17 12:45 09/28/17 12:44 Insulin Glargine (Lantus Solostar Pen) 12 units BID SC 08/30/17 09:00 09/29/17 08:59 09/01/17 08:44 12 UNITS Albuterol/ Ipratropium (Duoneb) 3 ml QIDR INH 08/29/17 20:00 09/28/17 19:59 09/01/17 11:10 3 ML Albuterol/ Ipratropium (Duoneb) 3 ml Q2R PRN INH 08/29/17 17:30 09/28/17 17:29 Insulin Aspart (novoLOG ASPART) SLIDING SCALE ACHS SC 08/30/17 11:00 09/28/17 00:00 09/01/17 13:11 4 UNITS HCTZ/Lisinopril (Prinzide 10-12.5MG Tab) 1 tab DAILY PO 09/01/17 09:00 10/01/17 08:59 09/01/17 10:00 1 TAB
[2017-09-01] MEDS ORDERED: LPR25 PO (14:08)
[2017-09-01] MEDS ORDERED: AZIT500T PO (14:08)
[2017-09-01] MEDS ORDERED: ASPEC81 PO (14:08)
[2017-09-01 14:19] VITALS: BP 144/82; PULSE 80; TEMP 36.3; O2SAT 91
--- NOTE | 2017-09-01 14:19 | Discharge Instructions ---
Discharge Instructions Date of Service Sep 01, 2017. Admission Reason for Admission: Chest Pain; Sob (Shortness Of Breath)*Corky Doing* Discharge Discharge Diagnosis / Problem: Chest pain/Dyspnea/Pneumonia/Elevated D-Dimer/ Hypokalemia/NELL Discharge Goals Goal(s): Decrease discomfort, Improve function, Improve disease control Activity Recommendations Activity Limitations: resume your previous activity (as tolerated) . Instructions / Follow-Up Instructions / Follow-Up Follow up with Dr. North on 09/09 @ 10:45 AM Follow up with cardiology as needed Follow up a low salt diet Monitor blood sugar and limited concentrated sweet intake Lasix added to take twice a week and as needed Please check BMP to monitor electrolytes and kidney function Current Hospital Diet Patient's current hospital diet: Diabetes Type 2 Diet, AHA Diet (Heart Healthy) Discharge Diet Recommended Diet: AHA Diet (Heart Healthy), Diabetes Type 2 Diet Pending Studies Studies pending at discharge: no Laboratory Results Hemoglobin A1c Test 08/28/17 03:59 Range/Units Estimated Average Glucose 197 mg/dl Hemoglobin A1c 8.5 H 4.5-5.6 % Lipid Panel Test 08/28/17 03:59 Range/Units Triglycerides Level 493 H 0-150 mg/dl Cholesterol Level 139 0-200 mg/dl HDL Cholesterol 9 mg/dl Cholesterol/HDL Ratio 15.4 LDL Cholesterol, Calculated mg/dl Medical Emergencies . Who to Call and When: Medical Emergencies: If at any time you feel your situation is an emergency, please call 911 immediately. . Non-Emergent Contact Non-Emergency issues call your: Primary Care Provider Call Non-Emergent contact if: you have any medication questions . . "Provider Documentation" section prepared by Stuart Lyles. .
[2017-09-01] MEDS ORDERED: MCRK20 PO (14:23)
[2017-09-01] MEDS ORDERED: FURO-85 PO (14:23)
[2017-09-02] MEDS ORDERED: AZITHROMYCIN 250 MG TAB PO SCH (09:00)
--- NOTE | 2017-09-06 21:01 | Discharge Summary ---
Discharge Summary Date of Service Sep 06, 2017. Discharge Summary Admission Date: Aug 28, 2017 at 19:55 Discharge Date: Sep 01, 2017 Discharge Disposition: Home Principal Diagnosis: Chest pain associated with dyspnea Secondary Diagnoses/Problems: UTI DM II DYSPNEA NELL ELEVATED D-DIMER HYPOKALEMIA Depression, anxiety HTN Dyslipidemia Procedures: CHEST 2 VIEWS ROUTINE CLINICAL HISTORY: 61 years-old Female presenting with f/u infiltrates. TECHNIQUE: PA and lateral views of the chest were obtained. COMPARISON: 08/30/2017. FINDINGS: Atherosclerosis of aortic arch. Cardiac silhouette enlarged. Interval decrease in patchy right mid and lower lung predominant opacities. Trace bilateral pleural effusions. No pneumothorax. Osseous structures normal. External leads project over the right lung base degrading evaluation. IMPRESSION: 1. Interval decrease in patchy right mid and lower lung infiltrates compatible with resolving pneumonia. 2. Trace bilateral pleural effusions. 3. Cardiomegaly. No go pulmonary edema. Electronically signed by: Harlan Ortega M.D. 09/01/2017 8:29 AM Dictated Date/Time: 09/01/2017 8:27 AM [~ rep ct add3]] (CHEST FOR PE) ANGIO WITH CT DOSE: 580.03 mGy.cm HISTORY: 61 years-old Female presents with acute central atypical chest pain and shortness of breath TECHNIQUE: Multiple CTA images of the chest were obtained after the intravenous administration of 91 ml Optiray 320. Coronal and sagittal MIPS were obtained from the axial data set and were submitted for review. A dose lowering technique was utilized adhering to the principles of ALARA. COMPARISON: Duplex venous Doppler study of same day, chest radiograph 08/27/2017 FINDINGS: CTA: Heart is normal in size with trace pericardial effusion, likely physiologic. Coronary arterial disease. No aortic aneurysm or dissection. The imaged great vessels appear to be patent. There is mild reflux of contrast into the IVC and hepatic veins. The pulmonary arterial tree is opacified to the subsegmental branches and demonstrates no focal filling defects to suggest pulmonary thromboembolic disease. CT CHEST: Thyroid is homogeneous. No pathologic adenopathy. Nonspecific mildly prominent 9 mm subcarinal and 7 mm prevascular lymph nodes are seen. No pneumothorax or pleural effusion. Linear subsegmental pleural based opacities of the right middle lobe suggest areas of atelectasis/scarring. Mild intralobular septal thickening is noted bilaterally. There is mild dependent subsegmental bibasilar atelectasis. There are no suspicious pulmonary nodules or masses identified. Mild bilateral bronchial wall thickening likely from congestive changes. Subtle groundglass opacities are noted bilaterally. Central airways are patent. No lobar airspace consolidations. Fatty infiltration of the liver. Ill-defined indeterminate 10 mm low attenuating lesion of the posterior right hepatic lobe statistically favors benign etiology such as a cyst. Not completely characterized on this study. Soft tissues are unremarkable. The bones appear intact. IMPRESSION: 1. No acute aortic pathology or evidence of pulmonary thromboembolic disease. 2. Mild bilateral interlobular septal thickening with subtle subsegmental scattered groundglass opacities suggests mild pulmonary edema with a superimposed mild pneumonitis difficult to exclude. No lobar airspace consolidations or pathologic adenopathy. 3. Coronary arterial disease. 4. Fatty infiltration of the liver. The above report was generated using voice recognition software. It may contain grammatical, syntax or spelling errors. Electronically signed by: Josafat Amin M.D. 08/28/2017 7:32 AM Dictated Date/Time: 08/28/2017 7:00 AM BILATERAL LOWER EXTREMITY VENOUS DOPPLER HISTORY: Acute atypical chest pain with elevated d-dimer level CP, elevated D-dimer COMPARISON STUDY: None. FINDINGS: There is normal compressibility, flow, and augmentation within the bilateral lower extremity deep venous systems. IMPRESSION: No sonographic evidence of deep venous thrombosis within the right or left lower extremity. Electronically signed by: Josafat Amin M.D. 08/28/2017 6:41 AM Dictated Date/Time: 08/28/2017 6:40 AM [~ rep ct add3]] EXAMINATION: RENAL ULTRASOUND CLINICAL HISTORY: R/o stones, obstruction COMPARISON STUDY: Outside CT scan performed September 2005 FINDINGS: The right kidney measures 12 cm. The left kidney measures 11.3 cm. There is no evidence of hydronephrosis. There is a 14 mm mid pole left renal cyst. No bladder masses were visualized. A right ureteral jet was visualized. The left ureteral jet was not identified IMPRESSION : 1. No evidence of hydronephrosis 2. 14 mm left renal cyst Electronically signed by: Tyrese Almendarez M.D. 08/27/2017 6:30 PM Dictated Date/Time: 08/27/2017 6:29 PM Medication Reconciliation New Medications: Azithromycin (Zithromax) 500 Mg Tab 1 TAB PO DAILY for 1 Day, #1 TAB Furosemide (Lasix) 20 Mg Tab 20 MG PO UD, #30 TAB Take twice a week on Friday and Friday as needed Potassium Chloride (Klor-Con M20) 20 Meq Tabcr 20 MEQ PO UD, #30 TAB Take only on the day with lasix Aspirin (Aspirin EC Low Dose) 81 Mg Ectab 81 MG PO QAM for 30 Days Metoprolol Tartrate (Lopressor) 25 Mg Tab 25 MG PO BID for 30 Days, #60 TAB Continued Medications: Atorvastatin (Lipitor) 20 Mg Tab 20 MG PO DAILY, TAB Gabapentin (Neurontin) 400 Mg Cap 400 MG PO TID TAKE EACH DOSE ALONG WITH ONE 300 MG CAPSULE TO = 700 MG TID Gabapentin (Neurontin) 300 Mg Cap 300 MG PO TID TAKE EACH DOSE ALONG WITH ONE 400 MG CAPSULE TO = 700 MG TID Hctz/Lisinopril (Lisinopril/Hctz 10/12.5 Mg) 1 Ea Tab 1 TAB PO DAILY Metformin Hcl (Glucophage) 500 Mg Tab 500 MG PO BID Multivitamin (Multivitamin) Tab 1 TAB PO DAILY Sertraline (Zoloft) 100 Mg Tab 200 MG PO DAILY TWO 100 MG TABLETS Thiamine Hcl (Vitamin B-1) Unknown Strength Tab 1 TAB PO DAILY Discontinued Medications: Cephalexin Monohydrate (Keflex) 500 Mg Cap 500 MG PO BID Admission Information HPI (per Admitting provider): This is a 61yo F with a PMH of DM II, HTN, HLD, depression, anxiety and other medical problems listed below who presents with SOB and chest pain that began this morning. Patient has been feeling poorly for the 4 days, with generalized weakness and fatigue. Started to experience chills on Friday (08/25) and came to ED and was diagnosed with a UTI. Urine culture grew klebsiella. Given a dose of rocephin and sent home on Keflex. Continued to feel poorly yesterday, with intermittent chills and body aches as well as chest discomfort and SOB with exertion. States that she only experiences these when she gets out of bed to use the restroom or get something to drink. Describes chest discomfort as a central, substernal, aching, 2/10 intensity with radiation to her jaw/teeth. Associated SOB but no diaphoresis, nausea, vomiting. No history of NV or CHF. No family history of heart disease. Has experienced panic attacks and acid reflux in the past but states that current chest discomfort feels different. Established care with PCP Ike today and was found to be hypotensive and SOB. Was given IVF in clinic and had an EKG performed (normal sinus rhythm) before being sent to the ED for further evaluation. Currently endorses chills, fatigue, anxiety and SOB with exertion. Denies fever , URI symptoms, lightheadedness, headache, visual changes, CP, palpitations, abd pain, flank pain, nausea, vomiting, dysuria, diarrhea or LE swelling. Denies recent weight gain. Was recently diagnosed with DM II in Apr 2017 and was started on metformin. Physical Exam (per Admitting): General Appearance: WD/WN, no apparent distress, + pertinent finding ( Flushed (chronic), breathing comfortably on room air ) Head: normocephalic, atraumatic Eyes: normal inspection, PERRL, sclerae normal ENT: normal ENT inspection, hearing grossly normal, pharynx normal (dry mucous membranes ) Neck: supple, thyroid normal, no JVD, trachea midline Respiratory/Chest: chest non-tender, lungs clear, normal breath sounds, no respiratory distress, no accessory muscle use Cardiovascular: regular rate, rhythm, no murmur, normal peripheral pulses Abdomen/GI: non tender, soft, no organomegaly Back: normal inspection, no CVA tenderness Extremities/Musculoskelatal: normal inspection, no calf tenderness, no pedal edema Neurologic/Psych: no motor/sensory deficits, alert, normal mood/affect, oriented x 3 Skin: warm/dry, no rash Hospital Course Chest pain associated with dyspnea Need to r/o ACS Has multiples risk factors include DM II, HTN, HLD Troponin on admission 0.424, then trending down 0.292 CTA chest showed no acute aortic pathology or evidence of pulmonary thromboembolic disease EKG did not showed any ischemic changes Currently no chest pain case discussed with cardiology 3/5 Had Cardiac cath done showed patent vessels Cardiology on board and recommended medical management Continue aspirin/statin/metoprolol Continue monitor in tele Resolved ECHO showed * Normal LV chamber size with mild concentric LVH. * Mildly reduced LV systolic function, EF 45-50%. * Moderate hypokinesis of the anteroseptal and apical grimaldo, otherwise, hyperdynamic wall motion. * Grade II diastolic dysfunction. * No significant valvular pathology. * Pulmonary hypertension is present with a RVSP of 40-50 mmHg. IVC not well visualized. UTI: Positive UA on 08/25 from the ER that grew Klebsiella She was discharged on keflex Receiving rocephin Blood cx no growth urine cx positive for delma Denies any urinary symptoms (No need to treat for the delma albican) WBC trending normal DYSPNEA Mostly related to fluid overload vs Pneumonia SOB improved after lasix given CXR showed patchy right upper and lower lobe opacities concerning for pneumonia Elevated BNP in 3K Will give an additional lasix Continue Duoneb treatment Pulmonology on board Continue Rocephin for now Repeat CXR on Friday 09/01 Possible due to PNA vs fluid overload Repeat CXR showed interval decrease in patchy right mid and lower lung infiltrates compatible with resolving pneumonia. Clinically improved Denies any SOB Lasix given yesterday On IV rocephin day 5 Will discharge on 2 days Zithromax DM II: Recent Hba1c 8.5 Oral DM on hold Pharmacy on board for glycemic management Continue monitor BS NELL: Creatine during last ER visit was 1.8, Baseline Cr ~0.9 Creatine on admission 1.29 renal u/s no evidence of hydronephrosis Creatine 0.91 HCTZ on hold. Resume lisinopril lasix given Monitor BMP Resolved HYPOKALEMIA K replaced monitor BMP Will discharge on K supplement to take on the day with lasix. ELEVATED D-DIMER Related to acute illness/NELL CTA chest negative for PE Doppler LE negative for DVT HTN: BP starting to elevate Lisinopril/hctz on hold due to NELL Resumed Lisinopril/HCTZ D/C IVF HLD: Elevated triglycerides Will defer to PCP to repeat triglycerides or to start on fenofibrate Cont atorvastatin Depression, anxiety: H/o overdose on benzodiazepines in the past Cont home dose SSRI, gabapentin Stable DVT Ppx: SQ heparin Code status: FULL Dispo: Discharge home today Total time spent on discharge = 35 minutes This includes examination of the patient, discharge planning, medication reconciliation, and communication with other providers. Discharge Instructions Discharge Instructions Date of Service Sep 01, 2017. Admission Reason for Admission: Chest Pain; Sob (Shortness Of Breath)*Corky Doing* Discharge Discharge Diagnosis / Problem: Chest pain/Dyspnea/Pneumonia/Elevated D-Dimer/ Hypokalemia/NELL Discharge Goals Goal(s): Decrease discomfort, Improve function, Improve disease control Activity Recommendations Activity Limitations: resume your previous activity (as tolerated) . Instructions / Follow-Up Instructions / Follow-Up Follow up with Dr. North on 09/09 @ 10:45 AM Follow up with cardiology as needed Follow up a low salt diet Monitor blood sugar and limited concentrated sweet intake Lasix added to take twice a week and as needed Please check BMP to monitor electrolytes and kidney function Current Hospital Diet Patient's current hospital diet: Diabetes Type 2 Diet, AHA Diet (Heart Healthy) Discharge Diet Recommended Diet: AHA Diet (Heart Healthy), Diabetes Type 2 Diet Pending Studies Studies pending at discharge: no Laboratory Results Hemoglobin A1c Test 08/28/17 03:59 Range/Units Estimated Average Glucose 197 mg/dl Hemoglobin A1c 8.5 H 4.5-5.6 % Lipid Panel Test 08/28/17 03:59 Range/Units Triglycerides Level 493 H 0-150 mg/dl Cholesterol Level 139 0-200 mg/dl HDL Cholesterol 9 mg/dl Cholesterol/HDL Ratio 15.4 LDL Cholesterol, Calculated mg/dl Medical Emergencies . Who to Call and When: Medical Emergencies: If at any time you feel your situation is an emergency, please call 911 immediately. . Non-Emergent Contact Non-Emergency issues call your: Primary Care Provider Call Non-Emergent contact if: you have any medication questions . . "Provider Documentation" section prepared by Stuart Lyles. . Additional Copies To Marcos North M.D.
== END 2017-09-01 14:45 | disposition home or self-care (01) | DRG 286 ==
LOC: C.EDB 13:18 → C.MED 17:21 → ENRESERV 18:09 → OBSVTOIN 08-28 19:55 → ENRESERV 08-29 12:47 → C.2T 08-29 13:12
PROVIDERS: ADMIT Hospitalist; ATTEND Internal Medicine
PROC: B211YZZ Fluoroscopy of Multiple Coronary Arteries using Other Contrast (ICD-10-PCS; principal; 2017-08-29 09:40)
PROC: 4A023N7 Measurement of Cardiac Sampling and Pressure, Left Heart, Percutaneous Approach (ICD-10-PCS; principal; 2017-08-29 09:40)
DX: R07.89 Other chest pain (principal); J18.9 Pneumonia, unspecified organism; N39.0 Urinary tract infection, site not specified; N17.9 Acute kidney failure, unspecified; E87.6 Hypokalemia; I10 Essential (primary) hypertension; E78.5 Hyperlipidemia, unspecified; F32.9 Major depressive disorder, single episode, unspecified; F41.9 Anxiety disorder, unspecified; B96.1 Klebsiella pneumoniae [K. pneumoniae] as the cause of diseases classified elsewhere; E11.65 Type 2 diabetes mellitus with hyperglycemia; R79.1 Abnormal coagulation profile; Z79.84 Long term (current) use of oral hypoglycemic drugs; Z79.899 Other long term (current) drug therapy; Z72.89 Other problems related to lifestyle; Z87.891 Personal history of nicotine dependence

== ENCOUNTER 2022-02-01 10:36 | Inpatient (IN) ==
[2022-02-01] MEDS ORDERED: ATROPINE SO4 1 MG/ML 1ML VIAL ONE (11:03)
[2022-02-01] MEDS ORDERED: ATROPINE SULFATE 0.1 MG/ML 5ML SYR IV STA (11:06)
--- NOTE | 2022-02-01 11:08 | Emergency Department Note ---
Impression & Plan Symptomatic bradycardia, Acute renal failure ED Provider Note Name: JENNY PATEL Age: 66 Sex: F Arrives Via: Walk-In Informant: Patient, ED Provider: Damion Plummer MD Chief Complaint: Weakness Impression: As per impressions above Medical Decision Makin-year-old female with a history of paroxysmal A. fib arrives for evaluation of weakness and bradycardia. Nursing requested my presence at bedside emergently on patient arrival due to heart rate in the 20s with difficult to obtain blood pressures. I immediately evaluated the patient noted her to be near syncopal although she was laid flat IVs were obtained and it was clear that she was significantly bradycardic. Monitor and EKG appears to show complete heart block versus severe bradycardia. She was given 1 mg IV atropine along with fluids. Her heart rate rapidly improved as did her blood pressure and her symptoms. Patient awake alert oriented answering all questions. She is already anticoagulated. Laboratory evaluation does reveal acute renal failure. Unclear whether this led to the bradycardia or whether she has been hypoperfusing and thus the renal insufficiency developed. Of note on arrival I immediately contacted cardiology who are down and evaluating patient as well. They requested that glucagon be given as she is also on metoprolol. Patient with multiple frequent reevaluations throughout and blood pressure and heart rate have stayed relatively stable with heart rate settling out in the 50s. Does appear she is returned back to her normal sinus rhythm. Given all this clearly requires hospitalization and thus hospitalist consulted for further management. Prior Medical Record and Triage/Nursing Notes reviewed by Me Differentials:Complete Heart block, medication overdose/supratherapeautic, Premature contractions, electrolyte abnormality, cardiac dysrhythmia, thyroid dysfunction, pulmonary embolism, infection, gastrointestinal, as well as other pathologies. Vital Signs: reviewed and remarkable for bradycardia, hypotension Interventions: Atropine 1 mg IV, 1 L normal saline, glucagon 0.5 mg IV Labs:Reviewed and remarkable for acute renal injury Imagin view chest x-ray no concerning findings as per radiologist EKG:Per My Interpretation: Indication weakness: Sinus bradycardia with multiple missed beats. QTc 467. Heart rate 37. Previous EKG from 11/26/2019 was normal sinus rhythm and thus this is an acute change Consults:Dr. Villarreal Cardiology & Dr Kelly RUBIN Hospitalist Plan: Disposition:Hospitalization. Condition: Good History of Present Illness:Pleasant 66-year-old female arrives for evaluation of weakness. Patient notes last 2 to 3 days worsening fatigue exhaustion and weakness. This is associated with noting her heart rate is very slow. Symptoms are much worse when she stands and better when she lays down. She knows she cannot walk around due to severe exhaustion and fatigue and lightheadedness. She denies any specific chest pains, fevers, chills, syncope, headache, neck pain, nausea, vomiting, abdominal pain, other concerning signs or symptoms. She has not taken any medication specifically for this. She does have a history of paroxysmal A. fib for which she is on flecainide, metoprolol as well as Eliquis as an anticoagulant. She is had no recent falls, trauma, injuries. She denies this having happened previously though does note that she went into renal insufficiency little over a year ago for unknown etiology. ROS: See above HPI for pertinent positives & negatives. A total of 10 systems reviewed and were otherwise negative. Past Medical History:See Below Past Surgical History:See Below Family History:See Below Social History:See Below Home Medications:See Below Allergies:See Below Vitals:Blood Pressure: 70 over palp, Pulse 25, RR 16, T 36.7 C, O2 97% on RA Physical Exam: GENERAL: Patient is mildly anxious appearing and in mild distress. EYES: No scleral icterus, unremarkable pupils. ENT: Mucous membranes dry, no nasal congestion. NECK: No masses appreciated, nomeningismus, trachea is midline. RESPIRATORY: No dyspnea. Clear to auscultation and equal bilaterally. No wheeze, no rhonchi. CARDIOVASCULAR: Bradycardia.No murmurs, rubs, gallops appreciated. GASTROINTESTINAL: Abdomen soft, non-tender, no peritonitis.Bowel sounds positive.No masses appreciated. BACK: No midline tenderness, no CVA tenderness EXTREMITIES: Normal motion all extremities, no cyanosis, no edema. NEUROLOGIC: Alert and oriented, no acute motor or sensory deficits, no focal weakness, cranial nerves grossly intact. SKIN: No rash, no jaundice, no diaphoresis. PSYCH: Appropriate GCS: 15 ED Course: Times/Reassessments: Patient evaluated at bedside on her arrival at [facility] due to prior to patient. Immediately given atropine 1 mg IV with rapid improvement in her heart rate and blood pressure. She is awake alert oriented and feeling much better. No further symptoms throughout the rest of her stay. Her remaining in the 50s. Many repeat evaluations and discussions with the patient and her cardiac/hospitalist team. Critical Care: I have personally spent 40 minutes of critical care time in the direct manag ement of this patient. Severe bradycardia resulting in hypotension requiring resuscitation. This was a life/limb threatening event. This 40 minutes is in excess of all separately billable procedures. Damion Plummer MD Past Med/Surg History Medical History Anxiety Asthma inhaler prn Depression Diabetes mellitus, type II NIDDM--currently diet controlled GERD (gastroesophageal reflux disease) H/O alcohol abuse HLD (hyperlipidemia) HTN (hypertension) Medical marijuana use Paroxysmal atrial fibrillation Dx'ed Feb 2021 - on Xarelto Peripheral neuropathy medical [facility] Right foot pain Tubular adenoma Urinary incontinence Surgical History History of ankle surgery Status post right ankle ORIF 11/26/19 to repair bimalleolar fracture - Dr Johnson History of appendectomy History of cardiac cath (~08/29/17) no stents History of colonoscopy with polypectomy History of tubal ligation Status post LASIK surgery Family History Mother Breast cancer Grandmother Stroke Grandfather Lung cancer Aunt Eye cancer Father Alcoholism Anxiety Depression Brother Anxiety Depression Unknown Alcoholism Other No family history of adverse response to anesthesia Denies family history of Ovarian cancer Colorectal cancer Social History Smoking Status: Former smoker Second Hand Exposure: No; Do You Dip or Chew Tobacco: No; Tobacco Cessation Education Requested by Patient: No Hx Alcohol Use: Yes Alcohol type: wine Hx Substance Use: Yes Prescribed Medications: Marijuana Last Used Substance Other:: purse. 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, glasses Preferred Language: Hebrew Communication Ability: Effective Visual Impairment: No Limitations Hearing Ability: Normal Soils Engineer Required: No Beliefs That Will Affect Care: None marital status: Current Living Situation: Alone current occupational status: retired Other Information That Helps Us Care for You: No Feels Safe at Home: Yes Safety Concerns: Feels Safe At This Time Childhood Exposure to Second-Hand Smoke: Yes Diet Comment: eats less meats caffeine: Yes Dental Care, Regularly: Yes Physical Activity Frequency: 1-2 Times per Week Seatbelt Use: always Sunscreen Use: Yes Assistive Devices: Glasses Assistive Devices Comment: purse. 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, glasses Allergies Allergies Allergy/AdvReac Type Severity Reaction Status Date / Time citalopram [From Celexa] AdvReac Mild Diarrhea Verified 12/10/21 09:54 metformin AdvReac Mild Diarrhea Verified 12/10/21 09:54 Home Meds Home Medications Medication Instructions Recorded Confirmed omeprazole 20 mg capsule,delayed 20 mg PO DAILY PRN reflux 02/16/19 02/01/22 release ibuprofen 200 mg tablet 400 mg PO Q6H PRN night sweats 11/21/19 02/01/22 amlodipine 5 mg tablet 5 mg PO QAM 06/22/21 02/01/22 Previous Rx's Medication Instructions Recorded albuterol sulfate 90 mcg/actuation 2 puffs inhalation Q6H PRN 08/30/19 aerosol inhaler (Ventolin HFA) shortness of breath or wheezing #8.5 grams gabapentin 300 mg capsule 300 mg PO TID #270 caps 12/29/19 tramadol 50 mg tablet 50 mg PO Q8H PRN pain #30 tabs 08/01/21 flecainide 100 mg tablet 100 mg PO Q12H #180 tabs 08/14/21 metoprolol succinate 100 mg 100 mg PO DAILY #90 tabs 08/14/21 tablet,extended release 24 hr rivaroxaban 20 mg tablet (Xarelto) 20 mg PO DAILY #90 tabs 08/14/21 duloxetine 60 mg capsule,delayed 60 mg PO QAM #90 caps 08/27/21 release (Cymbalta) gabapentin 400 mg capsule 400 mg PO TID #270 caps 09/04/21 rosuvastatin 40 mg tablet 40 mg PO DAILY #90 tabs 09/26/21 alendronate 35 mg tablet 35 mg PO .COMPLEX #12 tabs 10/16/21 furosemide 20 mg tablet See Rx Instructions .Route 11/28/21 .COMPLEX #60 tabs potassium chloride 20 mEq See Rx Instructions .Route 11/28/21 tablet,extended release .COMPLEX #30 tabs Results & Data (ED) Vital Signs Vital Signs - 24 hr 02/01/22 10:39 02/01/22 10:40 02/01/22 11:13 Temperature Source Temporal Artery Scan Pulse Rate 50 L Pulse Rate [Apical] 30 L Respiratory Rate 26 H Respiratory Effort / Characteristics Non-Labored Respiratory Depth Normal Respiratory Pattern Regular Blood Pressure 100/55 L Blood Pressure [Left Arm] 112/82 Blood Pressure Mean 70 Blood Pressure Mean [Left Arm] 92 Blood Pressure Position Sitting Pulse Oximetry 97 96 99 Oxygen Delivery Method Room Air Room Air Room Air Sepsis Recent Fever Within 48 Hours No Sepsis New/Unexplained Change in Mental Status No Sepsis Action Taken by Nursing No Action Required 02/01/22 11:14 02/01/22 11:25 Temperature Source Pulse Rate Pulse Rate [Apical] 54 L 59 L Respiratory Rate 18 18 Respiratory Effort / Characteristics Respiratory Depth Respiratory Pattern Blood Pressure Blood Pressure [Left Arm] 119/70 116/62 Blood Pressure Mean Blood Pressure Mean [Left Arm] 86 80 Blood Pressure Position Pulse Oximetry 98 97 Oxygen Delivery Method Room Air Room Air Sepsis Recent Fever Within 48 Hours Sepsis New/Unexplained Change in Mental Status Sepsis Action Taken by Nursing Laboratory Data Result diagrams: 02/02/22 05:21 02/02/22 05:21 Lab Results 02/01/22 02/01/22 02/01/22 Range/Units 11:07 11:07 11:07 WBC 13.65 H (4.8-10.8) K/ul RBC 4.09 (3.93-5.22) M/uL Hgb 13.6 (12.0-16.0) g/dl Hct 39.3 (34.1-44.9) % MCV 96.1 (80.0-100.0) fL MCH 33.3 (25.0-34.0) pg MCHC 34.6 (32.0-36.0) g/dL RDW Std Deviation 42.3 (36.4-46.3) fL RDW Coeff of Avani 12.1 (11.5-14.5) % Plt Count 314 (130-400) K/uL MPV 10.3 (9.4-12.3) fL Immature Gran % (Auto) 0.5 % Neut % (Auto) 67.5 % Lymph % (Auto) 18.0 % [place] % (Auto) 10.1 % Eos % (Auto) 3.2 % Baso % (Auto) 0.7 % Neut # (Auto) 9.20 H (1.4-6.5) K/uL Lymph # (Auto) 2.46 (1.2-3.4) K/uL [place] # (Auto) 1.38 H (0.24-0.82) K/uL Eos # (Auto) 0.44 (0-0.50) K/uL Baso # (Auto) 0.10 (0-0.2) K/uL Immature Gran # (Auto) 0.07 H (0.00-0.02) K/uL PT 12.7 H (9.0-12.0) Seconds INR 1.2 H (0.9-1.1) APTT 36.6 H (21.0-31.0) Seconds PTT Ratio 1.3 Sodium (136-145) mmol/L Potassium (3.5-5.1) mmol/L Chloride (98-107) mmol/L Carbon Dioxide (21-32) mmol/L Anion Gap (3-11) BUN (6-23) mg/dl Creatinine (0.6-1.2) mg/dl Est Cr Clr Drug Dosing ml/min Est GFR ( Amer) ml/min Est GFR (Non-Af Amer) ml/min BUN/Creatinine Ratio (10-20) Glucose (70-99(Fasting)) mg/dl Osmolality (280-300) mOsm/kg Calcium (8.5-10.1) mg/dl Magnesium (1.7-2.4) mg/dl Total Bilirubin (0.2-1.0) mg/dl Direct Bilirubin (0-0.2) mg/dl AST (13-39) U/L ALT (7-52) U/L Alkaline Phosphatase (34-104) U/L Troponin I High Sens (0-14) pg/ml Total Protein (6.0-8.3) gm/dl Albumin (3.4-5.0) gm/dl Lipase (11-82) U/L TSH 1.698 (0.300-4.500) uIu/ml Lyme Disease IgG Ab (Negative) Lyme Disease IgM Ab (Negative) SARS-CoV-2, RNA, NAAT (NEGATIVE) 02/01/22 02/01/22 02/01/22 Range/Units 11:07 11:07 11:07 WBC (4.8-10.8) K/ul RBC (3.93-5.22) M/uL Hgb (12.0-16.0) g/dl Hct (34.1-44.9) % MCV (80.0-100.0) fL MCH (25.0-34.0) pg MCHC (32.0-36.0) g/dL RDW Std Deviation (36.4-46.3) fL RDW Coeff of Avani (11.5-14.5) % Plt Count (130-400) K/uL MPV (9.4-12.3) fL Immature Gran % (Auto) % Neut % (Auto) % Lymph % (Auto) % [place] % (Auto) % Eos % (Auto) % Baso % (Auto) % Neut # (Auto) (1.4-6.5) K/uL Lymph # (Auto) (1.2-3.4) K/uL [place] # (Auto) (0.24-0.82) K/uL Eos # (Auto) (0-0.50) K/uL Baso # (Auto) (0-0.2) K/uL Immature Gran # (Auto) (0.00-0.02) K/uL PT (9.0-12.0) Seconds INR (0.9-1.1) APTT (21.0-31.0) Seconds PTT Ratio Sodium 131 L (136-145) mmol/L Potassium 3.3 L (3.5-5.1) mmol/L Chloride 94 L (98-107) mmol/L Carbon Dioxide 23 (21-32) mmol/L Anion Gap 14 H (3-11) BUN 29 H (6-23) mg/dl Creatinine 2.06 H (0.6-1.2) mg/dl Est Cr Clr Drug Dosing 26.8 ml/min Est GFR ( Amer) 28.4 ml/min Est GFR (Non-Af Amer) 24.5 ml/min BUN/Creatinine Ratio 14.1 (10-20) Glucose 260 H (70-99(Fasting)) mg/dl Osmolality 292 (280-300) mOsm/kg Calcium 9.3 (8.5-10.1) mg/dl Magnesium 2.5 H (1.7-2.4) mg/dl Total Bilirubin 0.9 (0.2-1.0) mg/dl Direct Bilirubin 0.1 (0-0.2) mg/dl AST 30 (13-39) U/L ALT 30 (7-52) U/L Alkaline Phosphatase 86 (34-104) U/L Troponin I High Sens 6.5 (0-14) pg/ml Total Protein 7.3 (6.0-8.3) gm/dl Albumin 4.2 (3.4-5.0) gm/dl Lipase 46 (11-82) U/L TSH (0.300-4.500) uIu/ml Lyme Disease IgG Ab Positive A (Negative) Lyme Disease IgM Ab Negative (Negative) SARS-CoV-2, RNA, NAAT (NEGATIVE) 02/01/22 Range/Units 11:45 WBC (4.8-10.8) K/ul RBC (3.93-5.22) M/uL Hgb (12.0-16.0) g/dl Hct (34.1-44.9) % MCV (80.0-100.0) fL MCH (25.0-34.0) pg MCHC (32.0-36.0) g/dL RDW Std Deviation (36.4-46.3) fL RDW Coeff of Avani (11.5-14.5) % Plt Count (130-400) K/uL MPV (9.4-12.3) fL Immature Gran % (Auto) % Neut % (Auto) % Lymph % (Auto) % [place] % (Auto) % Eos % (Auto) % Baso % (Auto) % Neut # (Auto) (1.4-6.5) K/uL Lymph # (Auto) (1.2-3.4) K/uL [place] # (Auto) (0.24-0.82) K/uL Eos # (Auto) (0-0.50) K/uL Baso # (Auto) (0-0.2) K/uL Immature Gran # (Auto) (0.00-0.02) K/uL PT (9.0-12.0) Seconds INR (0.9-1.1) APTT (21.0-31.0) Seconds PTT Ratio Sodium (136-145) mmol/L Potassium (3.5-5.1) mmol/L Chloride (98-107) mmol/L Carbon Dioxide (21-32) mmol/L Anion Gap (3-11) BUN (6-23) mg/dl Creatinine (0.6-1.2) mg/dl Est Cr Clr Drug Dosing ml/min Est GFR ( Amer) ml/min Est GFR (Non-Af Amer) ml/min BUN/Creatinine Ratio (10-20) Glucose (70-99(Fasting)) mg/dl Osmolality (280-300) mOsm/kg Calcium (8.5-10.1) mg/dl Magnesium (1.7-2.4) mg/dl Total Bilirubin (0.2-1.0) mg/dl Direct Bilirubin (0-0.2) mg/dl AST (13-39) U/L ALT (7-52) U/L Alkaline Phosphatase (34-104) U/L Troponin I High Sens (0-14) pg/ml Total Protein (6.0-8.3) gm/dl Albumin (3.4-5.0) gm/dl Lipase (11-82) U/L TSH (0.300-4.500) uIu/ml Lyme Disease IgG Ab (Negative) Lyme Disease IgM Ab (Negative) SARS-CoV-2, RNA, NAAT NEGATIVE (NEGATIVE) Administered Medications Duloxetine HCl (Duloxetine Hcl 60 Mg Cap) [facility] [place] 03/04/22 08:59 Last Admin: 02/02/22 08:15 Dose: 60 mg Documented By: SEFERINO Folic Acid (Folic Acid 1 Mg Tab) 1 mg PO QA KATIA Stop: 03/03/22 15:59 Last Admin: 02/02/22 08:15 Dose: 1 mg Documented By: Admin: 02/01/22 16:52 Dose: 1 mg Documented By: RAMSEY Sodium Chloride (Nss 1000ml) 1,000 mls @ 125 mls/hr IV .Q8H KATIA Stop: 03/03/22 15:49 Last Admin: 02/02/22 08:02 Dose: 125 mls/hr Documented By: Infusion: 02/02/22 08:02 Dose: 125 mls/hr Documented By: Admin: 02/02/22 02:18 Dose: 125 mls/hr Documented By: Infusion: 02/02/22 02:14 Dose: 0 mls/hr Documented By: Admin: 02/01/22 16:00 Dose: 125 mls/hr Documented By: RAMSEY Insulin Aspart (Insulin Aspart Per Unit) 0 units SC ACHS KATIA Stop: 03/03/22 16:29 Last Admin: 02/02/22 08:09 Dose: 1 units Documented By: SEFERINO Co-signed By: MARCOS Admin: 02/01/22 20:23 Dose: Not Given Documented By: Admin: 02/01/22 17:03 Dose: 1 units Documented By: RAMSEY Co-signed By: BHUMIKA Miscellaneous (Order Awaiting Action) 1 each N/A QS [facility] Stop: 03/03/22 15:59 Last Admin: 02/02/22 08:07 Dose: Not Given Documented By: Admin: 02/02/22 01:06 Dose: Not Given Documented By: Admin: 02/01/22 18:02 Dose: Not Given Documented By: RAMSEY Pantoprazole Sodium (Pantoprazole 40 Mg Tab) 40 mg PO DAILY PRN PRN Reason: reflux Stop: 03/03/22 15:56 Last Admin: 02/02/22 08:15 Dose: 40 mg Documented By: SEFERINO Rosuvastatin Calcium (Rosuvastatin Calcium 20 Mg Tab) 40 mg PO DAILY [facility] Stop: 03/04/22 08:59 Last Admin: 02/02/22 08:15 Dose: 40 mg Documented By: SEFERINO Thiamine HCl (Thiamine Hcl 100 Mg Tab) 100 mg PO QAM [facility] Stop: 03/03/22 15:59 Last Admin: 02/02/22 08:16 Dose: 100 mg Documented By: Admin: 02/01/22 16:52 Dose: 100 mg Documented By: RAMSEY Discontinued Medications Atropine Sulfate (Atropine So4 1 Mg/Ml 1ml Vial) Confirm Administered Dose 1 mg .ROUTE .STK-MED ONE Stop: 02/01/22 11:04 Last Admin: 02/01/22 11:10 Dose: Not Given Documented By: OL Atropine Sulfate (Atropine Sulfate 0.1 Mg/Ml 5ml Syr) 1 mg IV NOW STA Stop: 02/01/22 11:07 Last Admin: 02/01/22 11:05 Dose: 1 mg Documented By: OL Sodium Chloride (Nss 1000ml) 1,000 mls @ 999 mls/hr IV .Q1H1M ONE Stop: 02/01/22 12:41 Last Infusion: 02/01/22 12:45 Dose: 0 mls/hr Documented By: Admin: 02/01/22 11:43 Dose: 999 mls/hr Documented By: OL Glucagon (Glucagen) 0.5 mls @ 0.5 mls/min IV ONE ONE Stop: 02/01/22 12:24 Last Admin: 02/01/22 12:32 Dose: 0.5 mls/min Documented By: OL Multivitamins 10 ml/ Thiamine HCl 100 mg/ Folic Acid 1 mg/Sodium Chloride 1,011.2 mls @ 1,011.2 mls/hr IV .Q1H ONE Stop: 02/01/22 15:14 Last Infusion: 02/01/22 18:12 Dose: 0 mls/hr Documented By: Admin: 02/01/22 14:12 Dose: 1,011.2 mls/hr Documented By: OL Discharge Plan Visit Data Chief Complaint: Shortness of Breath/Dyspnea Stated Complaint: SHORTNESS OF BREATH ED Provider: Damion Plummer Discharge Problem: Symptomatic bradycardia, Acute renal failure Patient Disposition: Admitted As Inpatient Discharge Instructions Interventions: ED Discharge Assessment Last Done: 02/01/22 15:46 : Acute renal failure Qualifiers: Acute renal failure type: unspecified Qualified Code(s): N17.9 - Acute kidney failure, unspecified
[2022-02-01 11:15] LABS: Basophils % (auto) 0.7 %; Eosinophils # (auto) 0.44 K/uL (0-0.50); Eosinophils % (auto) 3.2 %; Hematocrit (blood only) 39.3 % (34.1-44.9); Hemoglobin 13.6 g/dl (12.0-16.0); Immature Granulocytes # (auto) 0.07 K/uL (0.00-0.02); Immature Granulocytes % (auto) 0.5 %; Lymphocytes # (auto) 2.46 K/uL (1.2-3.4); Mean Corpuscular Hemoglobin 33.3 pg (25.0-34.0); Mean Corpuscular Hgb Conc 34.6 g/dL (32.0-36.0); Mean Corpuscular Volume 96.1 fL (80.0-100.0); Mean Platelet Volume 10.3 fL (9.4-12.3); Monocytes # (auto) 1.38 K/uL (0.24-0.82); Monocytes % (auto) 10.1 %; Neutrophils % (auto) 67.5 %; Platelet Count 314 K/uL (130-400); RDW Coefficient of Variation 12.1 % (11.5-14.5); RDW Standard Deviation 42.3 fL (36.4-46.3); Red Blood Count 4.09 M/uL (3.93-5.22); White Blood Count 13.65 K/ul (4.8-10.8)
--- NOTE | 2022-02-01 11:23 | XRay Report ---
XR chest 1V portable HISTORY: bradycardia COMPARISON: Chest 07/29/2018. FINDINGS: No pneumothorax. No pleural effusions. The cardiac silhouette remains mildly enlarged. No f ocal lung consolidations to suggest pneumonia. No evidence for pulmonary edema. A 6 mm nodular focus within the left perihilar lung remains unchanged and likely represents a tortuous pulmonary vessel gi kelvin the long-term stability. There is an old, healed left humeral head/neck fracture. IMPRESSION: No significant change compared to the prior study. No acute process. ACT 112: Negative or not required by law. Electronically signed by: Fredi Li M.D. 02/01/2022 11:22 AM
[2022-02-01 11:40] LABS: Albumin Level 4.2 gm/dl (3.4-5.0); BUN Creatinine Ratio 14.1 (10-20); Bilirubin Direct 0.1 mg/dl (0-0.2); Bilirubin,Total 0.9 mg/dl (0.2-1.0); Calcium 9.3 mg/dl (8.5-10.1); Creatinine Clr Calc Pharmacy 26.8 ml/min; Est GFR (African American) 28.4 ml/min; Est GFR (Non-African American) 24.5 ml/min; Magnesium 2.5 mg/dl (1.7-2.4); Potassium 3.3 mmol/L (3.5-5.1); Total Protein 7.3 gm/dl (6.0-8.3)
[2022-02-01] MEDS ORDERED: SODIUM CHLORIDE 0.9% 1000ML 1,000 ML IV ONE (11:41)
[2022-02-01 11:42] LABS: Troponin I High Sensitivity 6.5 pg/ml (0-14)
[2022-02-01 11:46] LABS: INR 1.2 (0.9-1.1); Partial Thromboplastin Ratio 1.3; Partial Thromboplastin Time 36.6 Seconds (21.0-31.0); Prothrombin Time 12.7 Seconds (9.0-12.0)
[2022-02-01 12:13] LABS: Lyme Ab IgM w/WB Rflx Negative (Negative)
[2022-02-01 12:19] LABS: Lyme Ab IgG w/WB Rflx Positive (Negative)
[2022-02-01] MEDS ORDERED: GLUCAGON 0.5 ML IV ONE (12:23)
--- NOTE | 2022-02-01 12:26 | Cardiology Consultation ---
Date of Consultation February 01, 2022 Assessment & Plan (1) Symptomatic bradycardia: (2) Paroxysmal atrial fibrillation: Plan 1. Symptomatic bradycardia: She likely developed some bradycardia yesterday. Home monitoring confirmed a low heart rate and this was also documented at the t jessie of her arrival in the emergency room. This seems to account for most of her symptoms. With an increase in heart rate she is feeling better. She does have a positive IgG antibody for Lyme disease. However, IgM band was negative. I think this speaks against an acute infection. He would seem that the most likely etiology for her current symptoms would be her medications. We will hold metoprolol and flecainide. Fluids are being administered. We will administer glucagon as well and monitor the results. No urgent indication for temporary pacing although this can be considered if her bradycardia is unresponsive to medical therapy. Hopefully as her medication wears off will see her returned to a normal sinus rhythm. No evidence of heart block. Current problem appears to involve sinus node dysfunction. She may have had an element of chronotropic incompetence at baseline on her medical therapy. 2. Atrial fibrillation: She has odd symptoms associated with the arrhythmia. She believes she has diaphoresis developing in her face with the onset of atrial fibrillation. She occasionally gets some nausea as well. Unclear how frequently this is happening. Unfortunately, I think we will need to hold her medications currently and see if this becomes more bothersome. 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 3. Acute renal injury: Unclear if this is a cause or effect of some of her trouble. Certainly if she has had hypoperfusion over the past 24 hours her renal function may have suffered. History of Present Illness Reason for Consultation: Symptomatic bradycardia Requesting Physician: Kavitha History of Present Illness The patient is a 66-year-old woman with a history of paroxysmal atrial fibrillation currently on treatment with metoprolol and flecainide. The patient has been struggling with some dyspnea on exertion for several weeks. She 1st noticed significant symptoms [place] She attributed her symptoms to being at altitude but they persisted. She does not have associated chest pain or lightheadedness. She did undergo exercise echocardiography which did demonstrate a blunted heart rate response. However, she did not report limiting dyspnea or any chest pain during that procedure. Yesterday she began to feel weak. She stated that she had trouble performing activities due to weakness and fatigue. She did not endorse symptoms of lightheadedness. She also noted a tremor in her legs and hands. She contacted her primary care physician who suggested drinking some electrolyte replacement. She drank some sports drinks and felt somewhat better in the evening. This morning when she awoke she was very weak and had difficulty getting out of bed and getting to the restroom. In fact, she did have some urinary incontinence due to an inability to make it to the bathroom. She had a pulse oximeter at home and a blood pressure cuff. Her pulse oximeter is suggested a low heart rate. Her blood pressure cuff would not give her reading. Again, no symptoms of dizziness or lightheadedness. No sense of presyncope. She contacted and [facility] and was attempting to get to the car when she fell in her front yd and had difficulty getting up. She required assistance from another individual at that time. In the emergency room she was discovered to be significantly bradycardic. She was also orthostatic. She was administered atropine with improvement in her symptoms and hemodynamics. She denies any medication noncompliance. She has been on the same medications for some time. No other constitutional symptoms recently such as fevers or chills. No pain. Allergies Allergy/AdvReac Type Severity Reaction Status Date / Time citalopram [From Celexa] AdvReac Mild Diarrhea Verified 12/10/21 09:54 metformin AdvReac Mild Diarrhea Verified 12/10/21 09:54 Home Medications Medication Instructions Recorded Confirmed Type omeprazole 20 mg capsule,delayed 20 mg PO DAILY PRN reflux 02/16/19 12/10/21 History release vit C 250 mg-vit E 90 mg-zinc 40 1 tab PO BID 04/21/19 12/10/21 History mg-copper 1 [id number] capsule (PreserVision AREDS-2) albuterol sulfate 90 mcg/actuation 2 puffs inhalation Q6H PRN 08/30/19 12/10/21 Rx aerosol inhaler (Ventolin HFA) shortness of breath or wheezing #8.5 grams ibuprofen 200 mg tablet 400 mg PO Q6H PRN night sweats 11/21/19 12/10/21 History gabapentin 300 mg capsule 300 mg PO TID #270 caps 12/29/19 12/10/21 Rx amlodipine 5 mg tablet 5 mg PO QAM 06/22/21 12/10/21 History tramadol 50 mg tablet 50 mg PO Q8H PRN pain #30 tabs 08/01/21 12/10/21 Rx flecainide 100 mg tablet 100 mg PO Q12H #180 tabs 08/14/21 12/10/21 Rx metoprolol succinate 100 mg 100 mg PO DAILY #90 tabs 08/14/21 12/10/21 Rx tablet,extended release 24 hr rivaroxaban 20 mg tablet (Xarelto) 20 mg PO DAILY #90 tabs 08/14/21 12/10/21 Rx duloxetine 60 mg capsule,delayed 60 mg PO QAM #90 caps 08/27/21 12/10/21 Rx release (Cymbalta) gabapentin 400 mg capsule 400 mg PO TID #270 caps 09/04/21 12/10/21 Rx rosuvastatin 40 mg tablet 40 mg PO DAILY #90 tabs 09/26/21 12/10/21 Rx alendronate 35 mg tablet 35 mg PO .COMPLEX #12 tabs 10/16/21 12/10/21 Rx furosemide 20 mg tablet See Rx Instructions .Route 11/28/21 12/10/21 Rx .COMPLEX #60 tabs potassium chloride 20 mEq See Rx Instructions .Route 11/28/21 12/10/21 Rx tablet,extended release .COMPLEX #30 tabs Patient History Medical History Anxiety Asthma Depression Diabetes mellitus, type II GERD (gastroesophageal reflux disease) H/O alcohol abuse HLD (hyperlipidemia) HTN (hypertension) Medical marijuana use Paroxysmal atrial fibrillation Peripheral neuropathy Right foot pain Tubular adenoma Urinary incontinence Surgical History History of ankle surgery History of appendectomy History of cardiac cath (~08/29/17) History of colonoscopy with polypectomy History of tubal ligation Status post LASIK surgery Family History Mother Breast cancer Grandmother Stroke Grandfather Lung cancer Aunt Eye cancer Father Alcoholism Anxiety Depression Brother Anxiety Depression Unknown Alcoholism Other No family history of adverse response to anesthesia Denies family history of Ovarian cancer Colorectal cancer Social History Smoking Status: Former smoker Second Hand Exposure: No; Hx Alcohol Use: Yes Alcohol type: wine Hx Substance Use: Yes (medical marijuana) Prescribed Medications: Marijuana Last Used Substance Other:: medical marijuanna - daily Preferred Language: Fijian Communication Ability: Effective Visual Impairment: No Limitations Hearing Ability: Normal Apiculture Teacher Required: No Beliefs That Will Affect Care: None marital status: Current Living Situation: Alone current occupational status: retired Feels Safe at Home: Yes Childhood Exposure to Second-Hand Smoke: Yes Diet Comment: eats less meats caffeine: Yes Dental Care, Regularly: Yes Physical Activity Frequency: 1-2 Times per Week Seatbelt Use: always Sunscreen Use: Yes Assistive Devices: Glasses Review of Systems Review of Systems: Per HPI Physical Exam Physical Exam: She is alert and oriented x3. Mood affect appear normal. She answered all questions appropriately. HEENT: Sclerae are anicteric. Pupils are equal and reactive to light and accommodation. Extraocular movements were intact. Neuro: Cranial nerves intact Lungs: Lungs are clear to auscultation bilaterally. There are no rales wheezes or rhonchi. She has normal respiratory effort without use of accessory muscles. There is normal pulmonary excursion. Cardiac: The rhythm was irregular. S1 and S2 were normal. There are no murmurs on examination. The PMI was not markedly displaced on palpation. Abdomen: The abdomen was soft and nontender. Extremities: Patient has bilateral radial pulses that are equal in intensity. There is no evidence cyanosis or clubbing. There was no evidence of significant peripheral edema bilaterally. Skin: There are no rashes noted on examination today. Results & Data ([facility]) Vital Signs (Past 12 Hours) Vital Signs Pulse Pulse Resp BP BP Pulse Ox O2 Del Method 02/01/22 11:25 59 L 18 116/62 97 Room Air 02/01/22 11:14 54 L 18 119/70 98 Room Air 02/01/22 11:13 99 Room Air 02/01/22 10:40 30 L 112/82 96 Room Air 02/01/22 10:39 50 L 26 H 100/55 L 97 Room Air Laboratory Results Abnormal Lab Results 02/01/22 02/01/22 02/01/22 11:07 11:07 11:07 WBC 13.65 H RBC 4.09 Hgb 13.6 Hct 39.3 MCV 96.1 MCH 33.3 MCHC 34.6 RDW Std Deviation 42.3 RDW Coeff of Avani 12.1 Plt Count 314 MPV 10.3 Immature Gran % (Auto) 0.5 Neut % (Auto) 67.5 Lymph % (Auto) 18.0 Warren % (Auto) 10.1 Eos % (Auto) 3.2 Baso % (Auto) 0.7 Neut # (Auto) 9.20 H Lymph # (Auto) 2.46 Warren # (Auto) 1.38 H Eos # (Auto) 0.44 Baso # (Auto) 0.10 Immature Gran # (Auto) 0.07 H PT 12.7 H INR 1.2 H APTT 36.6 H PTT Ratio 1.3 Sodium Potassium Chloride Carbon Dioxide Anion Gap BUN Creatinine Est Cr Clr Drug Dosing Est GFR ( Amer) Est GFR (Non-Af Amer) BUN/Creatinine Ratio Glucose Calcium Magnesium Total Bilirubin Direct Bilirubin AST ALT Alkaline Phosphatase Troponin I High Sens Total Protein Albumin Lipase TSH 1.698 Lyme Disease IgG Ab Lyme Disease IgM Ab 02/01/22 02/01/22 11:07 11:07 WBC RBC Hgb Hct MCV MCH MCHC RDW Std Deviation RDW Coeff of Avani Plt Count MPV Immature Gran % (Auto) Neut % (Auto) Lymph % (Auto) Warren % (Auto) Eos % (Auto) Baso % (Auto) Neut # (Auto) Lymph # (Auto) Warren # (Auto) Eos # (Auto) Baso # (Auto) Immature Gran # (Auto) PT INR APTT PTT Ratio Sodium 131 L Potassium 3.3 L Chloride 94 L Carbon Dioxide 23 Anion Gap 14 H BUN 29 H Creatinine 2.06 H Est Cr Clr Drug Dosing 26.8 Est GFR ( Amer) 28.4 Est GFR (Non-Af Amer) 24.5 BUN/Creatinine Ratio 14.1 Glucose 260 H Calcium 9.3 Magnesium 2.5 H Total Bilirubin 0.9 Direct Bilirubin 0.1 AST 30 ALT 30 Alkaline Phosphatase 86 Troponin I High Sens 6.5 Total Protein 7.3 Albumin 4.2 Lipase 46 TSH Lyme Disease IgG Ab Positive A Lyme Disease IgM Ab Negative Diagnostic Findings Stress echocardiogram performed 12/28/2021: Normal LV systolic function. Stage I diastolic dysfunction. No significant valvular heart disease. No inducible ischemia although the study was nondiagnostic due to inability to achieve target heart rate. ECG Additional Comments: EKG obtained the time admission revealed a severe sinus bradycardia with sinus arrhythmia and periods of atrial asystole. PG Care Time/CCT Total # of Minutes Spent Total Time Spent with Patient: Total time spent is greater than 50% in coordination of care (as documented) at patient's floor/unit and/or counseling patient: Coding Level of Care Code 07000 Initial Inpt Care Lvl 3 Diagnoses Symptomatic bradycardia R00.1 Paroxysmal atrial fibrillation I48.0
--- NOTE | 2022-02-01 12:37 | History & Physical Report ---
Date of Service February 01, 2022 Assessment & Plan (1) Symptomatic bradycardia: Plan: - Weakness and shortness of breath x2 days with HR recorded at 28 at home today, 30s here on presentation. - S/p 1 mg of atropine and glucagon. Patient's HR now 5060, feeling a bit b t[place]. - DDx at this time includes medication buildup in the setting of NELL. Patient reports she had been taking her as needed Lasix daily for the past several days in order to lose weight. Last dose 01/30. She denies having any peripheral edema or MCCRACKEN prior to yesterday, however states she is not at her baseline weight which is why she was taking her Lasix. Her Lyme IgG is positive, however IgM ne gative. Bands pending. [place], however does not report any tick bites or prior treatment for Lyme disease. She had a bull's-eye rash several years ago, and conveniently had a prescription for doxycycline as prescribed for adult acne, she took that for several days then and has been "okay "ever since. Chronic Lyme could be contributing to presentation today, however I think it is more likely it is medication buildup in the setting of her NELL. - Cardiology evaluated patient in the emergency room, at this time plan will be to hold her metoprolol and flecainide, as well as Lasix and hydrate patient. Hopefully with medication wears off, her HR improves and and returns to NSR. She may have tachybradycardia syndrome. - Patient will be placed in PCU with pacemaker pads at bedside. (2) MCCRACKEN (dyspnea on exertion): Plan: - Likely a symptom of bradycardia. It is only present with activity. Her SpO2 has been >95% here on room air since arrival. She experienced this in December when she was in [facility], and attributed this to altitude. I have low suspicion that it was VTE causing shortness of breath at that time, as she is on Xarelto for A. fib, did not have any unilateral swelling or calf pain at that time. She states prior to this trip, she did start taking her Lasix regularly for a few days. COVID have been a similar situation as today, medication buildup. - Has a history of asthma for which she has not required her albuterol inhaler in "years ". - Has a history of peripheral edema, MCCRACKEN, weight gain in the past despite having a normal echo in March 2021. Looks euvolemic today. - Continue to monitor volume status as she receives IVF. Have to hold Lasix for now given NELL. (3) Alcohol abuse: Plan: - Patient has longstanding history of alcohol abuse, currently consumes an average of 1 bottle of wine a day. States her last drink was the day before yesterday. She denies any history of withdrawal, specifically denies seizures, visual/audio/tactile hallucinations, hospitalization for alcohol withdrawal, nausea, vomiting. She has been to rehab several times, at this point states that she is "too old for any of that" and feels she is managing her alcohol intake appropriately on her own. States stress and depression as triggers for increased intake. - She does report yesterday her symptoms started with twitching in her hands and legs, suspect this could be due to withdrawal if last drink was the day before yesterday. - She currently takes gabapentin 700 mg 3 times daily, for mood, neuropathy, suspect also for her alcohol abuse. Will continue this. - AWSS with Ativan as needed. - Banana bag today, with daily thiamine and folate supplementation. - Checking B12 and folate levels with a.m. labs. Deficiency could be contributing to her neuropathy. (4) HTN (hypertension): Plan: - Hold amlodipine 5 mg for today. (5) HLD (hyperlipidemia): Plan: - Continue rosuvastatin 40 mg daily. (6) Diabetes mellitus, type II: Plan: - Previously on metformin, but with multiple side effects. - Currently she is not on any medications for diabetes, she is trying to lose weight and manage this with diet and exercise. - Glucose on BMP was 260, this was before she was given glucagon for bradycardi a. - Will order Accu-Chek ACHS with SSI for today. - Last a1c in August = 6.4% - A1c in AM. (7) Peripheral neuropathy: Plan: - On gabapentin 700 mg TID for neuropathy, depression/anxiety, also with EtoH abuse. - Will check B12 level in AM. (8) GERD (gastroesophageal reflux disease): Plan: - Continue PPI as needed, switch from omeprazole to hospital formulary pantoprazole. (9) Asthma: Plan: - Has an albuterol inhaler as needed, has not used this in several years. (10) Paroxysmal atrial fibrillation: Plan: - Bradycardic here. Home meds include metoprolol 100 mg daily, flecainide 100 mg daily, and Xarelto 20 mg daily. - Holding metoprolol and flecainide due to symptomatic bradycardia, most likely buildup up home meds due to NELL. - Continue Xarelto, give home dose now. Plan - Admit to PCU. - SCDs, Xarelto for PCU. - Full Code. History of Present Illness Primary Care Provider: Luis M Valle MD Christie Purcell is a 66-year-old female with past medical history significant for DM2 with neuropathy, A. fib on chronic anticoagulation, hypertension, hyperlipidemia, diabetes, GERD, depression, and alcohol abuse who presents today for feeling generally unwell at home over the past 2 days. Beginning yesterday, patient noticed that at rest she was very "twitchy ", and her hands and legs. When she would get up to walk around her home, she felt very weak and short of breath. Called her PCP who advised her to drink a sports drink, suspecting she may be dehydrated. She did this and did feel better at that evening without recurrence of symptoms. This morning, she once again felt very weak with minimal activity and once again, short of breath. She checked her pulse ox and heart rate on home monitor, O2 saturations at 97%, however pulse was reported as 28. This prompted her to present to the ED for further evaluation. Prior to this 2 days ago, she had been feeling completely fine, but relays a similar series of days in [place] and had same presentation. She attributed this to being at a higher altitude and did not seek out treatment, as it had eventually resolved on its own. She has otherwise been feeling well, without fever/chills, myalgias, fatigue, chest pain, syncope or presyncope, shortness of breath, cough, abdominal imaging, nausea, vomiting, urinary symptoms, diarrhea. [facility] the [facility], however [facility]. 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 She was prescribed Lasix for this as needed, with potassium supplementation on days she took it. She reports she has actually taken this every day for the past few days, however not today or yesterday. She has not had swelling, however is trying to lose weight so took the Lasix to get water weight off. In ED, symptoms started with HR in 50s, blood reported at 30. Initially hypotensive 88/100/35, improved after IVF. Allergies Allergy/AdvReac Type Severity Reaction Status Date / Time citalopram [From Celexa] AdvReac Mild Diarrhea Verified 12/10/21 09:54 metformin AdvReac Mild Diarrhea Verified 12/10/21 09:54 Home Medications Medication Instructions Recorded Confirmed Type omeprazole 20 mg capsule,delayed 20 mg PO DAILY PRN reflux 02/16/19 02/01/22 History release albuterol sulfate 90 mcg/actuation 2 puffs inhalation Q6H PRN 08/30/19 02/01/22 Rx aerosol inhaler (Ventolin HFA) shortness of breath or wheezing #8.5 grams ibuprofen 200 mg tablet 400 mg PO Q6H PRN night sweats 11/21/19 02/01/22 History gabapentin 300 mg capsule 300 mg PO TID #270 caps 12/29/19 02/01/22 Rx amlodipine 5 mg tablet 5 mg PO QAM 06/22/21 02/01/22 History tramadol 50 mg tablet 50 mg PO Q8H PRN pain #30 tabs 08/01/21 02/01/22 Rx flecainide 100 mg tablet 100 mg PO Q12H #180 tabs 08/14/21 02/01/22 Rx metoprolol succinate 100 mg 100 mg PO DAILY #90 tabs 08/14/21 02/01/22 Rx tablet,extended release 24 hr rivaroxaban 20 mg tablet (Xarelto) 20 mg PO DAILY #90 tabs 08/14/21 02/01/22 Rx duloxetine 60 mg capsule,delayed 60 mg PO QAM #90 caps 08/27/21 02/01/22 Rx release (Cymbalta) gabapentin 400 mg capsule 400 mg PO TID #270 caps 09/04/21 02/01/22 Rx rosuvastatin 40 mg tablet 40 mg PO DAILY #90 tabs 09/26/21 02/01/22 Rx alendronate 35 mg tablet 35 mg PO .COMPLEX #12 tabs 10/16/21 02/01/22 Rx furosemide 20 mg tablet See Rx Instructions .Route 11/28/21 02/01/22 Rx .COMPLEX #60 tabs potassium chloride 20 mEq See Rx Instructions .Route 11/28/21 02/01/22 Rx tablet,extended release .COMPLEX #30 tabs Past Med/Surg History Medical History Anxiety Asthma inhaler prn Depression Diabetes mellitus, type II NIDDM--currently diet controlled GERD (gastroesophageal reflux disease) H/O alcohol abuse HLD (hyperlipidemia) HTN (hypertension) Medical marijuana use Paroxysmal atrial fibrillation Dx'ed Feb 2021 - on Xarelto Peripheral neuropathy medical [facility] Right foot pain Tubular adenoma Urinary incontinence Surgical History History of ankle surgery Status post right ankle ORIF 11/26/19 to repair bimalleolar fracture - Dr Johnson History of appendectomy History of cardiac cath (~08/29/17) no stents History of colonoscopy with polypectomy History of tubal ligation Status post LASIK surgery Family History Mother Breast cancer Grandmother Stroke Grandfather Lung cancer Aunt Eye cancer Father Alcoholism Anxiety Depression Brother Anxiety Depression Unknown Alcoholism Other No family history of adverse response to anesthesia Denies family history of Ovarian cancer Colorectal cancer Social History Smoking Status: Former smoker Second Hand Exposure: No; Hx Alcohol Use: Yes Alcohol type: wine Hx Substance Use: Yes (medical marijuana) Prescribed Medications: Marijuana Last Used Substance Other:: medical [place] - daily Preferred Language: Ukrainian Communication Ability: Effective Visual Impairment: No Limitations Hearing Ability: Normal Public Services Assistant Required: No Beliefs That Will Affect Care: None marital status: Current Living Situation: Alone current occupational status: retired Feels Safe at Home: Yes Childhood Exposure to Second-Hand Smoke: Yes Diet Comment: eats less meats caffeine: Yes Dental Care, Regularly: Yes Physical Activity Frequency: 1-2 Times per Week Seatbelt Use: always Sunscreen Use: Yes Assistive Devices: Glasses Review of Systems Review of Systems: Constitutional: general weakness x 2 days; No fever/chills, fatigue, myalgias, anorexia, night sweats Eyes: No diplopia, no worsening or blurred vision ENT: normal hearing, no trouble swallowing Respiratory: MCCRACKEN x2 days; no No cough, sputum, dyspnea at rest Cardiovascular: No chest pain, tightness or palpitations Abdomen: No pain, nausea, vomiting, diarrhea or constipation : Denies dysuria, hematuria, increased urgency/frequency, urinary retention Musculoskeletal: No joint pain, calf pain, swelling Neurologic: No weakness, numbness/tingling, or balance problems Psychiatric: No anxiety or depression Skin: No rash or itch Physical Exam Physical Exam: General: awake, alert, no apparent distress Head: Normocephalic, atraumatic ENT: PERRL, EOMI, no pharyngeal exudate, mucous membranes moist Chest: Clear to auscultation, on room air, no adventitious breath sounds Cardiac: bradycardic rate, regular rhythm, no murmur, no JVD, normal peripheral pulses, good capillary refill Abdominal: NABS x 4 quadrants, soft, nontender to palpation, no rebound, guarding or tenderness Extremities: Normal inspection, no peripheral edema or erythema, calfs nontender to palpation Psych: Normal mood and affect Neuro: AAO x 3, strength intact bilaterally and rated 5/5, no motor deficits, speech is clear, no peripheral sensory deficits Skin: no rash or erythema Results & Data Results & Data ([facility]) Vital Signs (Past 12 Hours) Vital Signs Pulse Pulse Resp BP BP Pulse Ox O2 Del Method 02/01/22 11:25 59 L 18 116/62 97 Room Air 02/01/22 11:14 54 L 18 119/70 98 Room Air 02/01/22 11:13 99 Room Air 02/01/22 10:40 30 L 112/82 96 Room Air 02/01/22 10:39 50 L 26 H 100/55 L 97 Room Air Laboratory Results Abnormal lab results 02/01/22 02/01/22 02/01/22 Range/Units 11:07 11:07 11:07 WBC 13.65 H (4.8-10.8) K/ul Neut # (Auto) 9.20 H (1.4-6.5) K/uL [place] # (Auto) 1.38 H (0.24-0.82) K/uL Immature Gran # (Auto) 0.07 H (0.00-0.02) K/uL PT 12.7 H (9.0-12.0) Seconds INR 1.2 H (0.9-1.1) APTT 36.6 H (21.0-31.0) Seconds Sodium 131 L (136-145) mmol/L Potassium 3.3 L (3.5-5.1) mmol/L Chloride 94 L (98-107) mmol/L Anion Gap 14 H (3-11) BUN 29 H (6-23) mg/dl Creatinine 2.06 H (0.6-1.2) mg/dl Glucose 260 H (70-99(Fasting)) mg/dl Magnesium 2.5 H (1.7-2.4) mg/dl Lyme Disease IgG Ab (Negative) 02/01/22 Range/Units 11:07 WBC (4.8-10.8) K/ul Neut # (Auto) (1.4-6.5) K/uL [place] # (Auto) (0.24-0.82) K/uL Immature Gran # (Auto) (0.00-0.02) K/uL PT (9.0-12.0) Seconds INR (0.9-1.1) APTT (21.0-31.0) Seconds Sodium (136-145) mmol/L Potassium (3.5-5.1) mmol/L Chloride (98-107) mmol/L Anion Gap (3-11) BUN (6-23) mg/dl Creatinine (0.6-1.2) mg/dl Glucose (70-99(Fasting)) mg/dl Magnesium (1.7-2.4) mg/dl Lyme Disease IgG Ab Positive A (Negative) Diagnostic Findings Chest X-Ray 02/01/22 11:07 XR chest 1V portable HISTORY: bradycardia COMPARISON: Chest 07/29/2018. FINDINGS: No pneumothorax. No pleural effusions. The cardiac silhouette remains mildly enlarged. No focal lung consolidations to suggest pneumonia. No evidence for pulmonary edema. A 6 mm nodular focus within the left perihilar lung remains unchanged and likely represents a tortuous pulmonary vessel given the long-term stability. There is an old, healed left humeral head/neck fracture. IMPRESSION: No significant change compared to the prior study. No acute process. ACT 112: Negative or not required by law. Electronically signed by: Fredi Li M.D. 02/01/2022 11:22 AM Code Status & VTE Plan Code Status Full Code. Supervising Physician Co-Signing Physician Notes Patient seen and examined, chart reviewed, case discussed with Bisi Maciel PA-C and I agree with the assessment and plan as above except as otherwise noted Patient is a 66-year-old female with history of type 2 diabetes, hypertension, benzodiazepine use, GERD, alcohol use, A. fib, sleep apnea who presents with weakness, symptomatic bradycardia, and NELL/ARF. She is recommended for admission for ARF and bradycardia.Seen by cardiology prior to assessment. Recommended to hold metoprolol and flecainide, and some suspicion for impaired clearance in the setting of NELL. Unclear if hypoperfusion could have caused NELL, or if NELL could have caused poor clearance of antiarrhythmic/toxicity. Glucagon administered in ER, following. No indication for temporary pacing at time of bedside evaluation. Tachybradycardia syndrome is a potential with underlying A. fib.Agree with potassium repletion, admit to telemetry with pacer pads at bedside, may use atropine as needed if symptomatic, continue to follow clinical response to glucagon and holding metoprolol/flecainide. Remains regular, bradycardic to 5060s at bedside on assessment, breathing unlabored. Lyme exposure with bull's-eye rash several years ago consistent with IgG positive IgM negative for Lyme, did take doxycycline at that time. Will defer treatment at this time, but follow Western blot and if multiple bands positive would treat for 10 days with Doxy twice daily at that point. PG Care Time/CCT Total # of Minutes Spent Total Time Spent with Patient: Total time spent is greater than 50% in coordination of care (as documented) at patient's floor/unit and/or counseling patient: Coding Level of Care Code 74674 Initial Inpt Care Lvl 3 Diagnoses Symptomatic bradycardia R00.1 MCCRACKEN (dyspnea on exertion) R06.00 Alcohol abuse F10.10 HTN (hypertension) I10 Hypertension type: primary hypertension HLD (hyperlipidemia) E78.5 Diabetes mellitus, type II E11.9 Peripheral neuropathy G62.9 GERD (gastroesophageal reflux disease) K21.9 Asthma J45.909 Paroxysmal atrial fibrillation I48.0 (1) HTN (hypertension) Hypertension type: primary hypertension Qualified Code(s): I10 - Essential (primary) hypertension
[2022-02-01 14:06] LABS: Appearance Urine Cloudy (Clear); Bacteria Urine Automated Negative (Negative); Bilirubin Urine Negative (Negative); Blood Urine 1+ (Negative); Color Urine Yellow; Epithelial Cell Urine Auto >30 /lpf (0-5); Glucose Urine UA 1+ (Negative); Ketones Urine Negative (Negative); Leukocyte Esterase Urine Trace (Negative); Nitrite Urine Negative (Negative); Protein Urine 2+ (Negative); RBC Urine Automated 0-4 /hpf (0-4); Specific Gravity Urine 1.008 (1.000-1.030); Urobilinogen Urine Negative (Negative)
[2022-02-01] MEDS ORDERED: MULTI-VITAMIN INFUSION 10 ML, THIAMINE HCL 100 MG, FOLIC ACID 1 MG in SODIUM CHLORIDE 0... IV ONE (14:15)
[2022-02-01 14:25] LABS: Amorphous Sediment Urine Present (None Prsent); Renal Epithelial Cells Urine 0-5 /lpf (0-5)
--- NOTE | 2022-02-01 15:22 | Electrocardiogram Report ---
Test Reason : Blood Pressure : / mmHG Vent. Rate : 037 BPM Atrial Rate : 037 BPM P-R Int : 000 ms QRS Dur : 102 ms QT Int : 596 ms P-R-T Axes : 043 045 016 degrees QTc Int : 467 ms Severe sinus bradycardia with sinus arrest and junctional escape beats Otherwise normal ECG Confirmed by Luis M Villarreal ([id number]) on 02/01/2022 3:22:02 PM Referred By: Confirmed By:Erasmo Villarreal
[2022-02-01] MEDS ORDERED: DEXTROSE 50% 50 ML SYRINGE IV PRN (15:50)
[2022-02-01] MEDS ORDERED: POLYETHYLENE (MIRALAX) 17 GM PACK PO PRN (15:50)
[2022-02-01] MEDS ORDERED: ACETAMINOPHEN 325 MG TAB PO PRN (15:50)
[2022-02-01] MEDS ORDERED: ALBUTEROL HFA 8 GM INHALER INH PRN (15:50)
[2022-02-01] MEDS ORDERED: GLUCOSE 10 TAB/TUBE PO PRN (15:50)
[2022-02-01] MEDS ORDERED: ONDANSETRON INJ 2 MG/ML 2 ML VIAL IV PRN (15:50)
[2022-02-01] MEDS ORDERED: CARBOHYDRATES FOR HYPOGLYCEMIA PO PRN (15:50)
[2022-02-01] MEDS ORDERED: GLUCAGON FOR INJ 1 MG VIAL SQ PRN (15:50)
[2022-02-01] MEDS ORDERED: traMADol HCL 50 MG TABLET PO PRN (15:50)
[2022-02-01] MEDS ORDERED: LORazepam 1 MG TAB PO PRN (15:50)
[2022-02-01] MEDS ORDERED: GLUCOSE 40% GEL 15 GM TUBE PO PRN (15:50)
[2022-02-01] MEDS ORDERED: PANTOprazole 40 MG TAB PO PRN (15:57)
[2022-02-01] MEDS: SODIUM CHLORIDE 0.9% 1000ML 1,000 ML IV SCH (16:00)
[2022-02-01] MEDS: FOLIC ACID 1 MG TAB PO SCH (16:52)
[2022-02-01] MEDS: THIAMINE HCL 100 MG TAB PO SCH (16:52)
[2022-02-01] MEDS: INSULIN ASPART PER UNIT SC SCH ×2 (17:03→20:23)
[2022-02-02] MEDS: SODIUM CHLORIDE 0.9% 1000ML 1,000 ML IV SCH ×3 (02:18→15:37)
[2022-02-02 05:55] LABS: Basophils # (auto) 0.05 K/uL (0-0.2); Basophils % (auto) 0.7 %; Eosinophils # (auto) 0.29 K/uL (0-0.50); Eosinophils % (auto) 4.1 %; Hematocrit (blood only) 34.4 % (34.1-44.9); Hemoglobin 11.7 g/dl (12.0-16.0); Immature Granulocytes # (auto) 0.02 K/uL (0.00-0.02); Immature Granulocytes % (auto) 0.3 %; Lymphocytes # (auto) 1.46 K/uL (1.2-3.4); Lymphocytes % (auto) 20.8 %; Mean Corpuscular Hemoglobin 32.7 pg (25.0-34.0); Mean Corpuscular Volume 96.1 fL (80.0-100.0); Mean Platelet Volume 10.6 fL (9.4-12.3); Monocytes # (auto) 0.57 K/uL (0.24-0.82); Monocytes % (auto) 8.1 %; Neutrophils # (auto) 4.62 K/uL (1.4-6.5); Platelet Count 194 K/uL (130-400); RDW Coefficient of Variation 12.1 % (11.5-14.5); RDW Standard Deviation 42.3 fL (36.4-46.3); Red Blood Count 3.58 M/uL (3.93-5.22); White Blood Count 7.01 K/ul (4.8-10.8)
[2022-02-02 06:06] LABS: INR 1.1 (0.9-1.1); Prothrombin Time 11.7 Seconds (9.0-12.0)
[2022-02-02 06:35] LABS: BUN Creatinine Ratio 13.4 (10-20); Calcium 7.6 mg/dl (8.5-10.1); Creatinine Clr Calc Pharmacy 32.1 ml/min; Est GFR (African American) 35.3 ml/min; Est GFR (Non-African American) 30.5 ml/min; Magnesium 2.1 mg/dl (1.7-2.4); Potassium 2.6 mmol/L (3.5-5.1)
[2022-02-02 06:46] LABS: Folate (Folic Acid) > 22.30 ng/ml (>5.38)
[2022-02-02 06:47] LABS: Vitamin B12 813 pg/ml (180-914)
[2022-02-02 08:09] LABS: Estimated Average Glucose 163 mg/dl; Hemoglobin A1C 7.3 % (4.5-5.6)
[2022-02-02] MEDS: INSULIN ASPART PER UNIT SC SCH ×4 (08:09→21:36)
[2022-02-02] MEDS: ROSUVASTATIN CALCIUM 20 MG TAB PO SCH (08:15)
[2022-02-02] MEDS: DULoxetine HCL 60 MG CAP PO SCH (08:15)
[2022-02-02] MEDS: FOLIC ACID 1 MG TAB PO SCH (08:15)
[2022-02-02] MEDS: THIAMINE HCL 100 MG TAB PO SCH (08:16)
--- NOTE | 2022-02-02 11:22 | Electrocardiogram Report ---
Test Reason : Blood Pressure : / mmHG Vent. Rate : 047 BPM Atrial Rate : 047 BPM P-R Int : 186 ms QRS Dur : 088 ms QT Int : 560 ms P-R-T Axes : 055 060 040 degrees QTc Int : 495 ms Sinus bradycardia Nonspecific T wave abnormality Anteroseptal leads Abnormal ECG When compared with ECG of 01-FEB-2022 10:55, HR has increased by 10 bpm Junctional rhythm no longer present Confirmed by Vlad Guerrero ([id number] on 02/02/2022 11:22:32 AM Referred By: REFERRED SELF Confirmed By:Vlad Guerrero
--- NOTE | 2022-02-02 12:21 | Hospitalist Progress Note ---
Date of Service February 02, 2022 Assessment & Plan (1) Symptomatic bradycardia: Plan: - Could be due to beta blockers, patient on metoprolol at home and also on Flecainide -Both currently on hold -HR has improved a little bit to around 52's -Cardiology on consult -If no improvement, will benefit from pacemaker (2) MCCRACKEN (dyspnea on exertion): Plan: - Likely a symptom of bradycardia. Says its worse on exertion -Now almost resolved following improvement in herat rate (3) Alcohol abuse: Plan: - Patient has longstanding history of alcohol abuse, currently consumes an average of 1 bottle of wine a day. States her last drink was the day before yesterday. - She currently takes gabapentin 700 mg 3 times daily, for mood, neuropathy, suspect also for her alcohol abuse. Will continue this. - AWSS with Ativan as needed. - Banana bag today, with daily thiamine and folate supplementation. - Checking B12 and folate levels with a.m. labs. Deficiency could be contributing to her neuropathy. (4) HTN (hypertension): Plan: - Hold amlodipine 5 mg for today. (5) HLD (hyperlipidemia): Plan: - Continue rosuvastatin 40 mg daily. (6) Diabetes mellitus, type II: Plan: - Previously on metformin, but with multiple side effects. - Currently she is not on any medications for diabetes, she is trying to lose weight and manage this with diet and exercise. - Glucose on BMP was 260, this was before she was given glucagon for bradycardia. - Will order Accu-Chek ACHS with SSI for today. - Last a1c in August = 6.4% - A1c in AM. (7) Peripheral neuropathy: Plan: - On gabapentin 700 mg TID for neuropathy, depression/anxiety, also with EtoH abuse. - Will check B12 level in AM. (8) GERD (gastroesophageal reflux disease): Plan: - Continue PPI as needed, switch from omeprazole to hospital formulary pantoprazole. (9) Asthma: Plan: - Has an albuterol inhaler as needed, has not used this in several years. (10) Paroxysmal atrial fibrillation: Plan: - Bradycardic here. Home meds include metoprolol 100 mg daily, flecainide 100 mg daily, and Xarelto 20 mg daily. - Holding metoprolol and flecainide due to symptomatic bradycardia, most likely buildup up home meds due to NELL. - Continue Xarelto, give home dose now. Plan - Hopefully d/c in the next 24 hrs if HR improves - Tawanda Cee for PCU. - Full Code. Admission and Anticipated Discharge Date Admission Date: February 01, 2022 Subjective patient seen and examined, says her chest pain and sob have improved Review of Systems Review of Systems: All systems reviewed are negative, apart from the ones contained in the history. Physical Exam Physical Exam: The patient is awake, alert and oriented 3, well developed and well nourished, normocephalic and atraumatic, lying in bed and in no acute distress. HEENT--PERRL, EOMI, mucous membranes and oropharynx mildly dry Neck--supple. No JVD. No bruits. Thyroid normal, trachea midline, no adenopathy. Heart--normal S1 and S2. No murmurs, rubs or gallops. Lungs--clear bilaterally, no respiratory distress, no accessory muscle use. Abdomen--normal bowel sounds and soft. Mild epigastric and left sided abdominal pain Extremities--no cyanosis or clubbing. No edema. Dermatologic--normal skin turgor, normal color, no abnormal lymph nodes, no rash. Neurologic--cranial nerves II through XII grossly intact. Rheumatologic--normal range of motion. Psychiatric--normal affect. Results & Data Results & Data ([facility]) Vital Signs (Past 12 Hours) Vital Signs Temp Pulse Pulse Resp BP BP Pulse Ox 02/02/22 08:00 02/02/22 07:00 52 L 02/02/22 06:59 98.1 F 52 L 18 99/49 L 95 02/02/22 03:16 98.1 F 51 L 12 108/50 L 94 O2 Del Method 02/02/22 08:00 Room Air 02/02/22 07:00 02/02/22 06:59 Room Air 02/02/22 03:16 Room Air PG Care Time/CCT Total # of Minutes Spent Total Time Spent with Patient: Total time spent is greater than 50% in coordination of care (as documented) at patient's floor/unit and/or counseling patient: Coding Level of Care Code 54192 Subseq Hosp Care Lvl 2 Diagnoses Symptomatic bradycardia R00.1 MCCRACKEN (dyspnea on exertion) R06.00 Alcohol abuse F10.10 HTN (hypertension) I10 Hypertension type: primary hypertension HLD (hyperlipidemia) E78.5 Diabetes mellitus, type II E11.9 Peripheral neuropathy G62.9 GERD (gastroesophageal reflux disease) K21.9 Asthma J45.909 Paroxysmal atrial fibrillation I48.0 Time Spent (min) 35 (1) HTN (hypertension) Hypertension type: primary hypertension Qualified Code(s): I10 - Essential (primary) hypertension
[2022-02-02] MEDS: GABAPENTIN 400 MG CAP PO SCH ×2 (13:00→20:17)
[2022-02-02] MEDS: GABAPENTIN 300 MG CAP PO SCH ×2 (13:00→20:17)
[2022-02-03 07:02] LABS: BUN Creatinine Ratio 8.7 (10-20); Calcium 7.9 mg/dl (8.5-10.1); Est GFR (African American) 41.6 ml/min; Est GFR (Non-African American) 35.9 ml/min; Potassium 2.5 mmol/L (3.5-5.1)
[2022-02-03] MEDS: INSULIN ASPART PER UNIT SC SCH ×4 (07:28→21:03)
[2022-02-03] MEDS ORDERED: POTASSIUM CHLORIDE CRTAB 20 MEQ TABCR PO ONE (07:30)
[2022-02-03] MEDS: GABAPENTIN 300 MG CAP PO SCH ×3 (08:42→21:08)
[2022-02-03] MEDS: ROSUVASTATIN CALCIUM 20 MG TAB PO SCH (08:42)
[2022-02-03] MEDS: GABAPENTIN 400 MG CAP PO SCH ×3 (08:42→21:07)
[2022-02-03] MEDS: FOLIC ACID 1 MG TAB PO SCH (08:42)
[2022-02-03] MEDS: THIAMINE HCL 100 MG TAB PO SCH (08:43)
[2022-02-03] MEDS: DULoxetine HCL 60 MG CAP PO SCH (08:43)
--- NOTE | 2022-02-03 09:07 | Electrocardiogram Report ---
Test Reason : Blood Pressure : / mmHG Vent. Rate : 054 BPM Atrial Rate : 054 BPM P-R Int : 186 ms QRS Dur : 092 ms QT Int : 502 ms P-R-T Axes : 040 054 047 degrees QTc Int : 476 ms Sinus bradycardia Prominent U waves(consider hypokalemia,drug effect, etc.) Abnormal ECG When compared with ECG of 02-FEB-2022 06:45, Nonspecific T wave abnormality has replaced inverted T waves in Septal leads Confirmed by Vlad Guerrero ([id number]) on 02/03/2022 9:06:59 AM Referred By: REFERRED SELF Confirmed By:Vlad Guerrero
--- NOTE | 2022-02-03 13:44 | Hospitalist Progress Note ---
Date of Service February 03, 2022 Assessment & Plan (1) Symptomatic bradycardia: Plan: -Most likely due to beta blockers, patient on metoprolol at home and also on Flecainide -Both currently on hold -HR has improved a little bit to around 54's -Cardiology on consult (2) MCCRACKEN (dyspnea on exertion): Plan: - Likely a symptom of bradycardia. Says its worse on exertion -Now almost resolved following improvement in herat rate (3) Alcohol abuse: Plan: - Patient has longstanding history of alcohol abuse, currently consumes an average of 1 bottle of wine a day. States her last drink was the day before yesterday. - She currently takes gabapentin 700 mg 3 times daily, for mood, neuropathy, suspect also for her alcohol abuse. Will continue this. - AWSS with Ativan as needed. - Banana bag today, with daily thiamine and folate supplementation. - Checking B12 and folate levels with a.m. labs. Deficiency could be contributing to her neuropathy. (4) HTN (hypertension): Plan: - Hold amlodipine 5 mg for today. (5) HLD (hyperlipidemia): Plan: - Continue rosuvastatin 40 mg daily. (6) Diabetes mellitus, type II: Plan: - Previously on metformin, but with multiple side effects. - Currently she is not on any medications for diabetes, she is trying to lose weight and manage this with diet and exercise. - Glucose on BMP was 260, this was before she was given glucagon for bradycardia. - Will order Accu-Chek ACHS with SSI for today. - Last a1c in August = 6.4% - A1c in AM. (7) Peripheral neuropathy: Plan: - On gabapentin 700 mg TID for neuropathy, depression/anxiety, also with EtoH abuse. - Will check B12 level in AM. (8) GERD (gastroesophageal reflux disease): Plan: - Continue PPI as needed, switch from omeprazole to hospital formulary pantoprazole. (9) Asthma: Plan: - Has an albuterol inhaler as needed, has not used this in several years. (10) Paroxysmal atrial fibrillation: Plan: - Bradycardic here. Home meds include metoprolol 100 mg daily, flecainide 100 mg daily, and Xarelto 20 mg daily. - Holding metoprolol and flecainide due to symptomatic bradycardia, most likely buildup up home meds due to NELL. - Continue Xarelto, give home dose now. Plan - Hopefully d/c in the next 24 hrs if HR improves further - Jaye, Nicolasrelto for PCU. - Full Code. Admission and Anticipated Discharge Date Admission Date: February 01, 2022 Subjective patient seen and examined, says her chest pain and sob have improved, ambulating the [address] Review of Systems Review of Systems: All systems reviewed are negative, apart from the ones contained in the history. Physical Exam Physical Exam: The patient is awake, alert and oriented 3, well developed and well nourished, normocephalic and atraumatic, lying in bed and in no acute distress. HEENT--PERRL, EOMI, mucous membranes and oropharynx mildly dry Neck--supple. No JVD. No bruits. Thyroid normal, trachea midline, no adenopathy. Heart--normal S1 and S2. No murmurs, rubs or gallops. Lungs--clear bilaterally, no respiratory distress, no accessory muscle use. Abdomen--normal bowel sounds and soft. Mild epigastric and left sided abdominal pain Extremities--no cyanosis or clubbing. No edema. Dermatologic--normal skin turgor, normal color, no abnormal lymph nodes, no rash. Neurologic--cranial nerves II through XII grossly intact. Rheumatologic--normal range of motion. Psychiatric--normal affect. Results & Data Results & Data ([facility]) Vital Signs (Past 12 Hours) Vital Signs Temp Pulse Pulse Resp BP BP Pulse Ox 02/03/22 11:11 98.2 F 56 L 20 118/60 97 02/03/22 07:30 02/03/22 07:00 56 L 02/03/22 07:14 97.9 F 48 L 14 150/81 H 99 02/03/22 03:05 98.2 F 52 L 16 127/60 97 O2 Del Method 02/03/22 11:11 Room Air 02/03/22 07:30 Room Air 02/03/22 07:00 02/03/22 07:14 Room Air 02/03/22 03:05 Room Air PG Care Time/CCT Total # of Minutes Spent Total Time Spent with Patient: Total time spent is greater than 50% in coordination of care (as documented) at patient's floor/unit and/or counseling patient: Coding Level of Care Code 35222 Subseq Hosp Care Lvl 2 Diagnoses Symptomatic bradycardia R00.1 MCCRACKEN (dyspnea on exertion) R06.00 Alcohol abuse F10.10 HTN (hypertension) I10 Hypertension type: primary hypertension HLD (hyperlipidemia) E78.5 Diabetes mellitus, type II E11.9 Peripheral neuropathy G62.9 GERD (gastroesophageal reflux disease) K21.9 Asthma J45.909 Paroxysmal atrial fibrillation I48.0 Time Spent (min) 35 (1) HTN (hypertension) Hypertension type: primary hypertension Qualified Code(s): I10 - Essential (primary) hypertension
[2022-02-04 07:23] LABS: BUN Creatinine Ratio 7.4 (10-20); Calcium 8.9 mg/dl (8.5-10.1); Creatinine Clr Calc Pharmacy 33.5 ml/min; Est GFR (African American) 37.7 ml/min; Est GFR (Non-African American) 32.5 ml/min; Potassium 3.1 mmol/L (3.5-5.1)
[2022-02-04] MEDS ORDERED: POTASSIUM CHLORIDE CRTAB 20 MEQ TABCR PO STA (08:01)
[2022-02-04] MEDS: INSULIN ASPART PER UNIT SC SCH ×2 (08:24→11:49)
[2022-02-04] MEDS: THIAMINE HCL 100 MG TAB PO SCH (08:26)
[2022-02-04] MEDS: ROSUVASTATIN CALCIUM 20 MG TAB PO SCH (08:26)
[2022-02-04] MEDS: DULoxetine HCL 60 MG CAP PO SCH (08:26)
[2022-02-04] MEDS: GABAPENTIN 400 MG CAP PO SCH (08:26)
[2022-02-04] MEDS: GABAPENTIN 300 MG CAP PO SCH (08:26)
[2022-02-04] MEDS: FOLIC ACID 1 MG TAB PO SCH (08:27)
[2022-02-04] MEDS ORDERED: CEROVITE ADV FORMULA TAB PO SCH (09:00)
--- NOTE | 2022-02-04 13:26 | Discharge Summary ---
Date of Service February 04, 2022 Admission HPI Per Admitting Provider Christie Purcell is a 66-year-old female with past medical history significant for DM2 with neuropathy, A. fib on chronic anticoagulation, hypertension, hyperlipidemia, diabetes, GERD, depression, and alcohol abuse who presents today for feeling generally unwell at home over the past 2 days. Beginning yesterday, patient noticed that at rest she was very "twitchy ", and her hands and legs. When she would get up to walk around her home, she felt very weak and short of breath. Called her PCP who advised her to drink a sports drink, suspecting she may be dehydrated. She did this and did feel better at that evening without recurrence of symptoms. This morning, she once again felt very weak with minimal activity and once again, short of breath. She checked her pulse ox and heart rate on home monitor, O2 saturations at 97%, however pulse was reported as 28. This prompted her to present to the ED for further evaluation. Prior to this 2 days ago, she had been feeling completely fine, but relays a similar ser ies of days in [place] and had same presentation. She attributed this to being at a higher altitude and did not seek out treatment, as it had eventually resolved on its own. She has otherwise been feeling well, without fever/chills, myalgias, fatigue, chest pain, syncope or presyncope, shortness of breath, cough, abdominal imaging, nausea, vomiting, urinary symptoms, diarrhea. Previously lived in the [facility], however recently moved to a [facility]. 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 She was prescribed Lasix for this as needed, with potassium supplementation on days she took it. She reports she has actually taken this every day for the past few days, however not today or yesterday. She has not had swelling, however is trying to lose weight so took the Lasix to get water weight off. In ED, symptoms started with HR in 50s, blood reported at 30. Initially hypotensive 88/100/35, improved after IVF. Principal Diagnosis bradycardia Discharge Exam The patient is awake, alert and oriented 3, well developed and well nourished, normocephalic and atraumatic, lying in bed and in no acute distress. HEENT--PERRL, EOMI, mucous membranes and oropharynx mildly dry Neck--supple. No JVD. No bruits. Thyroid normal, trachea midline, no adenopathy. Heart--normal S1 and S2. No murmurs, rubs or gallops. Lungs--clear bilaterally, no respiratory distress, no accessory muscle use. Abdomen--normal bowel sounds and soft. Mild epigastric and left sided abdominal pain Extremities--no cyanosis or clubbing. No edema. Dermatologic--normal skin turgor, normal color, no abnormal lymph nodes, no rash. Neurologic--cranial nerves II through XII grossly intact. Rheumatologic--normal range of motion. Psychiatric--normal affect. Discharge Data Allergies Allergy/AdvReac Type Severity Reaction Status Date / Time citalopram [From Celexa] AdvReac Mild Diarrhea Verified 12/10/21 09:54 metformin AdvReac Mild Diarrhea Verified 12/10/21 09:54 Consultations 02/01/22 12:37 ED Decision to Admit Stat 02/01/22 15:50 Consult Cardiology Routine Hospital Course (1) Symptomatic bradycardia: -Most likely due to beta blockers, patient on metoprolol at home and also on Flecainide -Both currently on hold -HR has improved to 70-80's -Cardiology on consult (2) MCCRACKEN (dyspnea on exertion): - Likely a symptom of bradycardia. Says its worse on exertion -Now almost resolved following improvement in herat rate (3) Alcohol abuse: - Patient has longstanding history of alcohol abuse, currently consumes an average of 1 bottle of wine a day. States her last drink was the day before yesterday. - She currently takes gabapentin 700 mg 3 times daily, for mood, neuropathy, suspect also for her alcohol abuse. Will continue this. - AWSS with Ativan as needed. - Banana bag today, with daily thiamine and folate supplementation. - Checking B12 and folate levels with a.m. labs. Deficiency could be contributing to her neuropathy. (4) HTN (hypertension): - Hold amlodipine 5 mg for today. (5) HLD (hyperlipidemia): - Continue rosuvastatin 40 mg daily. (6) Diabetes mellitus, type II: - Previously on metformin, but with multiple side effects. - Currently she is not on any medications for diabetes, she is trying to lose weight and manage this with diet and exercise. - Glucose on BMP was 260, this was before she was given glucagon for bradycardia. - Will order Accu-Chek ACHS with SSI for today. - Last a1c in August = 6.4% - A1c in AM. (7) Peripheral neuropathy: - On gabapentin 700 mg TID for neuropathy, depression/anxiety, also with EtoH abuse. - Will check B12 level in AM. (8) GERD (gastroesophageal reflux disease): - Continue PPI as needed, switch from omeprazole to hospital formulary pantoprazole. (9) Asthma: - Has an albuterol inhaler as needed, has not used this in several years. (10) Paroxysmal atrial fibrillation: - Bradycardic here. Home meds include metoprolol 100 mg daily, flecainide 100 mg daily, and Xarelto 20 mg daily. - Holding metoprolol and flecainide due to symptomatic bradycardia, most likely buildup up home meds due to NELL. - Continue Xarelto, give home dose now. Plan - d/c home. follow up with cardiology before resuming metoprolol Total Time Total Time Spent Total Time Spent (In Minutes): 35 Discharge Plan Discharge Items Patient Disposition: Home - Self-Care Reason For Visit: SYMPTOMATIC BRADYCARDIA Discharge Diagnosis: bradycardia-resolved Activity: Resume your previous activity Non-emergency contact: Primary Care Provider and Director Building Call non-emergency contact if: you have any medication questions Follow-up/Referrals: Luis M Valle MD [Primary Care Provider] - (Follow up appointment scheduled with CULLEN De Santiago.) Joan Waldron CRNP [Nurse Practitioner] - 02/14/22 2:00 pm (Please follow up with CULLEN De Santiago on 02/14/22 at 2:00 pm. Please arrive to the office at 1:45 pm for your appointment. If you are unable to keep this appointment, please call the office to reschedule at [phone].) Diet: Regular Addtl Attending Provider Instructions: please make appointment to follow up with your medical instructor. Please dont take metoprolol or Flecainide until you see your Director Building Pending Studies at Discharge: No Stand-Alone Forms: My [employer], Smoking Cessation Medications and DC Order Prescriptions: Continued gabapentin 300 mg capsule 300 mg PO TID Qty: 270 1RF Rx Instructions: TOTAL DOSE 700MG duloxetine [Cymbalta] 60 mg capsule,delayed release(DR/EC) 60 mg PO QAM Qty: 90 3RF gabapentin 400 mg capsule 400 mg PO TID Qty: 270 1RF Rx Instructions: TOTAL DOSE 700MG alendronate 35 mg tablet 35 mg PO .COMPLEX Qty: 12 3RF Rx Instructions: 35 mg PO once weekly; Take on an empty stomach with a large glass of water, do not lie down for 30 minutes after taking medication. Do not eat for 30 minutes after taking the medication. omeprazole 20 mg capsule,delayed release(DR/EC) 20 mg PO DAILY PRN (Reason: reflux) rosuvastatin 40 mg tablet 40 mg PO DAILY Qty: 90 3RF Xarelto 20 mg tablet 20 mg PO DAILY Qty: 90 3RF Rx Instructions: must administer with evening meal tramadol 50 mg tablet 50 mg PO Q8H PRN (Reason: pain) Qty: 30 0RF furosemide 20 mg tablet See Rx Instructions .ROUTE .COMPLEX Qty: 60 2RF Rx Instructions: Take 1 to 2 tablets daily as needed for edema; potassium chloride 20 mEq tablet extended release See Rx Instructions .ROUTE .COMPLEX Qty: 30 2RF Rx Instructions: Take 1 tablet by mouth on days that furosemide is taken; albuterol sulfate [Ventolin HFA] 90 mcg/actuation HFA aerosol inhaler 2 puffs INH Q6H PRN (Reason: shortness of breath or wheezing) Qty: 8.5 11RF ibuprofen 200 mg Tablet 400 mg PO Q6H PRN (Reason: night sweats) amlodipine 5 mg tablet 5 mg PO QAM Discontinued flecainide 100 mg tablet 100 mg PO Q12H Qty: 180 3RF metoprolol succinate 100 mg tablet extended release 24 hr 100 mg PO DAILY Qty: 90 3RF Discharge Orders: Discharge Order (Routine); Ordered 02/04/22 Ordered By: Florentin Barnes Admission Data Admit Date/Time: 02/01/22 12:43 Attending Provider: Florentin Barnes Admit Provider: Harlan Street Primary Care Provider: Luis M Valle Other Providers: Harlan Street ; Luis M Villarreal Other Interventions: Discharge Summary Assessment (RN) Last Done: 02/04/22 11:45 Coding Level of Care Code D/C DAY MANAGEMENT >30 MINS Diagnoses Symptomatic bradycardia R00.1 MCCRACKEN (dyspnea on exertion) R06.00 Alcohol abuse F10.10 HTN (hypertension) I10 Hypertension type: primary hypertension HLD (hyperlipidemia) E78.5 Diabetes mellitus, type II E11.9 Peripheral neuropathy G62.9 GERD (gastroesophageal reflux disease) K21.9 Asthma J45.909 Paroxysmal atrial fibrillation I48.0 Time Spent (min) 35
[2022-02-04 13:47] LABS: 18KDIGG Band REACTIVE; 23KDIGG Band NON-REACTIVE; 23KDIGM Band NON-REACTIVE; 28KDIGG Band NON-REACTIVE; 30KDIGG Band NON-REACTIVE; 39KDIGG Band REACTIVE; 39KDIGM Band NON-REACTIVE; 41KDIGG Band REACTIVE; 41KDIGM Band NON-REACTIVE; 45KDIGG Band NON-REACTIVE; 58KDIGG Band REACTIVE; 66KDIGG Band REACTIVE; 93KDIGG Band NON-REACTIVE; Lyme Antibodies, WB IgG POSITIVE (NEGATIVE); Lyme Antibodies, WB IgM NEGATIVE (NEGATIVE)
== END 2022-02-04 12:55 | disposition home or self-care (01) | DRG 309 ==
LOC: ED 10:36 → 2E 12:43 → SUATTDRO 12:43 → 2E 15:46
DX: Z87.891 Personal history of nicotine dependence; T50.905A Adverse effect of unspecified drugs, medicaments and biological substances, initial encounter; I48.0 Paroxysmal atrial fibrillation; N17.9 Acute kidney failure, unspecified; F12.90 Cannabis use, unspecified, uncomplicated; E11.42 Type 2 diabetes mellitus with diabetic polyneuropathy; Z79.01 Long term (current) use of anticoagulants; R00.1 Bradycardia, unspecified; Z88.8 Allergy status to other drugs, medicaments and biological substances; E78.5 Hyperlipidemia, unspecified; K21.9 Gastro-esophageal reflux disease without esophagitis; F10.10 Alcohol abuse, uncomplicated; I10 Essential (primary) hypertension; R53.1 Weakness

== ENCOUNTER 2022-02-06 10:28 | Observation (INO) ==
[2022-02-06] MEDS ORDERED: LORazepam 1 MG TAB SL STA (11:21)
--- NOTE | 2022-02-06 11:21 | Emergency Department Note ---
Impression & Plan Acute dyspnea, Heart palpitations, Lightheadedness ED Provider Note INFORMANT: Patient ED PROVIDER(S): Holland Crum MD CHIEF COMPLAINT: Shortness of breath and palpitations PLAN: Disposition: Admitted Condition: Good Outpatient prescription management: none Referral: None MEDICAL DECISION MAKING: Patient presented because she was feeling short of breath had palpitations and was tachycardic in the primary office. She was just taken off of multiple medications due to symptomatic bradycardia. It is possible that she did have a transient dysrhythmia that spontaneously converted. The patient was anxious as well and has not had alcohol in several days. She was given a dose of sublingual Ativan and did feel much better with this. She was found to have a leukocytosis on CBC mild hypokalemia which was corrected and an elevated troponin. The patient's BNP was also slightly elevated. Creatinine was as well but was baseline. Patient's ECG did not reveal any acute ischemia. Her urinalysis was concerning for infection. In light of the multiple issues I discussed further management in the hospital. Patient was given IV Rocephin. Patient was in agreement and did not feel comfortable going home. [facility] Patient was evaluated in the ER and admitted for further management. Triage Nursing notes reviewed and agree them. Vital Signs: reviewed and remarkable for no significant abnormalities Differential diagnosis: Reactive airway disease, pneumonia, pneumothorax, COPD, CHF, infections, cardiac ischemia, pulmonary embolism, musculoskeletal, gastrointestinal, as well as other pathologies. Diagnostics interpreted by me: EC Lead ECG performed and revealed Normal sinus rhythm at 77, normal Bradley, QRS normal. No elevation or depression. No PACs or PVCs Cardiac Monitoring: Cardiac monitoring ordered by me: The patient was placed on continuous cardiac monitoring and observed. It revealed a normal sinus rhythm at 79 beats per minute without ectopy or evidence of dysrhythmia. Imaging studies: Chest x-ray. Findings: A chest x-ray was performed and revealed no pneumothorax, effusion, infiltrate, pulmonary edema, free air under the diaphragm, or wide mediastinum. Impression: No acute disease. HPI: The patient is a 66 year old female who presents to the Emergency Room with complaints of sob. This started last night and is persisting. The patient also notes the following associated symptoms, lightheadedness, palpitations, sweating. The patient has found no relieving factors. Current pain is rated as 0/10. Went to PCP follow up today and due to complaints EMS summoned and pt brought to ER. REcent admit for symptomatic bradycardia and ARF. Pt denies LOC, headache, fevers, chills, visual changes, neck pain, chest pain, nausea, vomiting, abdominal pain, back pain, melena, hematochezia, urinary symptoms, numbness, weakness, lymphadenopathy, rash, or other complaints. ROS: See above HPI for pertinent positives & negatives. A total of 10 systems reviewed and were otherwise negative. PAST MEDICAL HISTORY:See Below , afib PAST SURGICAL HISTORY:See Below, FAMILY HISTORY:See Below SOCIAL HISTORY:See Below, quit tobacco. Last drink 6 days ago. HOME MEDICATIONS:See Below ALLERGIES:See Below VITALS:See Below PHYSICAL EXAMINATION: GENERAL: Awake, alert, anxious-appearing, in no distress HENT: Normocephalic, atraumatic. Oropharynx unremarkable. EYES: Normal conjunctiva. Sclera non-icteric. NECK: Inspection normal. Non-tender. Supple. No nuchal rigidity. FROM. No masses. RESPIRATORY: Clear to auscultation. No wheezes. No rales. Normal respiratory effort. CARDIAC: Normal rate. Normal rhythm. No murmurs. No rubs. Extremities warm and well perfused. Pulses equal. No JVD. GI: Soft, non-distended. No tenderness to palpation. No rebound or guarding. No masses. RECTAL: Deferred. MUSCULOSKELETAL: Atraumatic. Chest examination reveals no tenderness. The back is symmetrical on inspection without obvious abnormality. There is no CVA tend erness to palpation. No joint edema. LOWER EXTREMITIES: Calves are equal size bilaterally and non-tender. No edema. No discoloration. NEURO: Normal sensorium. No sensory or motor deficits noted. SKIN: No rash or jaundice noted. Holland Crum MD Past Med/Surg History Medical History Anxiety Asthma inhaler prn Depression Diabetes mellitus, type II NIDDM--currently diet controlled GERD (gastroesophageal reflux disease) H/O alcohol abuse HLD (hyperlipidemia) HTN (hypertension) Medical marijuana use Paroxysmal atrial fibrillation Dx'ed Feb 2021 - on Xarelto Peripheral neuropathy medical [facility] Right foot pain Tubular adenoma Urinary incontinence Surgical History History of ankle surgery Status post right ankle ORIF 11/26/19 to repair bimalleolar fracture - Dr Johnson History of appendectomy History of cardiac cath (~08/29/17) no stents History of colonoscopy with polypectomy History of tubal ligation Status post LASIK surgery Family History Mother Breast cancer Grandmother Stroke Grandfather Lung cancer Aunt Eye cancer Father Alcoholism Anxiety Depression Brother Anxiety Depression Unknown Alcoholism Other No family history of adverse response to anesthesia Denies family history of Ovarian cancer Colorectal cancer Social History Smoking Status: Former smoker Tobacco Type: Cigarettes Second Hand Exposure: No; Do You Dip or Chew Tobacco: No; Hx Alcohol Use: Yes Alcohol type: wine Hx Substance Use: No Preferred Language: [place] Communication Ability: Effective Visual Impairment: No Limitations Hearing Ability: Normal 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 Allergies Allergies Allergy/AdvReac Type Severity Reaction Status Date / Time citalopram [From Celexa] AdvReac Mild Diarrhea Verified 12/10/21 09:54 metformin AdvReac Mild Diarrhea Verified 12/10/21 09:54 Home Meds Home Medications Medication Instructions Recorded Confirmed omeprazole 20 mg capsule,delayed 20 mg PO DAILY PRN reflux 02/16/19 02/06/22 release ibuprofen 200 mg tablet 400 mg PO Q6H PRN night sweats 11/21/19 02/06/22 amlodipine 5 mg tablet 5 mg PO QAM 06/22/21 02/06/22 Previous Rx's Medication Instructions Recorded albuterol sulfate 90 mcg/actuation 2 puffs inhalation Q6H PRN 08/30/19 aerosol inhaler (Ventolin HFA) shortness of breath or wheezing #8.5 grams gabapentin 300 mg capsule 300 mg PO TID #270 caps 12/29/19 tramadol 50 mg tablet 50 mg PO Q8H PRN pain #30 tabs 08/01/21 rivaroxaban 20 mg tablet (Xarelto) 20 mg PO DAILY #90 tabs 08/14/21 duloxetine 60 mg capsule,delayed 60 mg PO QAM #90 caps 08/27/21 release (Cymbalta) gabapentin 400 mg capsule 400 mg PO TID #270 caps 09/04/21 rosuvastatin 40 mg tablet 40 mg PO DAILY #90 tabs 09/26/21 alendronate 35 mg tablet 35 mg PO .COMPLEX #12 tabs 10/16/21 furosemide 20 mg tablet See Rx Instructions .Route 11/28/21 .COMPLEX #60 tabs potassium chloride 20 mEq See Rx Instructions .Route 11/28/21 tablet,extended release .COMPLEX #30 tabs Results & Data (ED) Vital Signs Vital Signs - 24 hr 02/06/22 10:36 02/06/22 10:35 02/06/22 10:35 Temperature 36.8 C Temperature Source Oral Pulse Rate 80 Pulse Rate [Apical] Respiratory Rate 20 Respiratory Effort / Characteristics Non-Labored Non-Labored Spontaneous Respiratory Depth Normal Normal Respiratory Pattern Regular Blood Pressure 143/95 H Blood Pressure [Right Arm] Blood Pressure Mean 111 Blood Pressure Mean [Right Arm] Pulse Oximetry 99 99 Oxygen Delivery Method Room Air Room Air Room Air Sepsis Recent Fever Within 48 Hours No Sepsis New/Unexplained Change in Mental Status No Sepsis Action Taken by Nursing No Action Required 02/06/22 13:00 Temperature Temperature Source Pulse Rate Pulse Rate [Apical] 81 Respiratory Rate 18 Respiratory Effort / Characteristics Non-Labored Spontaneous Respiratory Depth Normal Respiratory Pattern Blood Pressure Blood Pressure [Right Arm] 144/84 H Blood Pressure Mean Blood Pressure Mean [Right Arm] 104 Pulse Oximetry 98 Oxygen Delivery Method Room Air Sepsis Recent Fever Within 48 Hours Sepsis New/Unexplained Change in Mental Status Sepsis Action Taken by Nursing Laboratory Data Result diagrams: 02/06/22 11:45 02/06/22 11:45 Lab Results 02/06/22 02/06/22 02/06/22 Range/Units 11:45 11:45 11:45 WBC 13.64 H (4.8-10.8) K/ul RBC 4.37 (3.93-5.22) M/uL Hgb 14.4 (12.0-16.0) g/dl Hct 41.1 (34.1-44.9) % MCV 94.1 (80.0-100.0) fL MCH 33.0 (25.0-34.0) pg MCHC 35.0 (32.0-36.0) g/dL RDW Std Deviation 43.0 (36.4-46.3) fL RDW Coeff of Avani 12.5 (11.5-14.5) % Plt Count 297 (130-400) K/uL MPV 10.4 (9.4-12.3) fL Immature Gran % (Auto) 0.7 % Neut % (Auto) 73.7 % Lymph % (Auto) 14.9 % Coos % (Auto) 8.3 % Eos % (Auto) 1.6 % Baso % (Auto) 0.8 % Neut # (Auto) 10.06 H (1.4-6.5) K/uL Lymph # (Auto) 2.03 (1.2-3.4) K/uL Coos # (Auto) 1.13 H (0.24-0.82) K/uL Eos # (Auto) 0.22 (0-0.50) K/uL Baso # (Auto) 0.11 (0-0.2) K/uL Immature Gran # (Auto) 0.09 H (0.00-0.02) K/uL Sodium 140 (136-145) mmol/L Potassium 3.3 L (3.5-5.1) mmol/L Chloride 108 H (98-107) mmol/L Carbon Dioxide 19 L (21-32) mmol/L Anion Gap 13 H (3-11) BUN 17 (6-23) mg/dl Creatinine 1.50 H (0.6-1.2) mg/dl Est Cr Clr Drug Dosing 36.2 ml/min Est GFR ( Amer) 41.6 ml/min Est GFR (Non-Af Amer) 35.9 ml/min BUN/Creatinine Ratio 11.3 (10-20) Glucose 142 H (70-99(Fasting)) mg/dl Calcium 10.1 (8.5-10.1) mg/dl Magnesium 2.0 (1.7-2.4) mg/dl Total Bilirubin 0.9 (0.2-1.0) mg/dl AST 27 (13-39) U/L ALT 28 (7-52) U/L Alkaline Phosphatase 76 (34-104) U/L Troponin I High Sens 14.7 H D (0-14) pg/ml B-Natriuretic Peptide 124 H (0-100) pg/ml Total Protein 7.3 (6.0-8.3) gm/dl Albumin 4.3 (3.4-5.0) gm/dl Globulin 3.0 (2.5-4.0) gm/dl Albumin/Globulin Ratio 1.4 (0.9-2) Urine Color Urine Appearance (Clear) Urine pH (4.5-7.5) Ur Specific Chester (1.000-1.030) Urine Protein (Negative) Urine Glucose (UA) (Negative) Urine Ketones (Negative) Urine Blood (Negative) Urine Nitrite (Negative) Urine Bilirubin (Negative) Urine Urobilinogen (Negative) Ur Leukocyte Esterase (Negative) Urine WBC (Auto) (0-5) /hpf Urine RBC (Auto) (0-4) /hpf U Hyaline Cast (Auto) (0-5) /lpf U Epithel Cells (Auto) (0-5) /lpf Urine Bacteria (Auto) (Negative) Urine Mucus (None Prsent) SARS-CoV-2, RNA, NAAT (NEGATIVE) 02/06/22 02/06/22 Range/Units 11:45 11:45 WBC (4.8-10.8) K/ul RBC (3.93-5.22) M/uL Hgb (12.0-16.0) g/dl Hct (34.1-44.9) % MCV (80.0-100.0) fL MCH (25.0-34.0) pg MCHC (32.0-36.0) g/dL RDW Std Deviation (36.4-46.3) fL RDW Coeff of Avani (11.5-14.5) % Plt Count (130-400) K/uL MPV (9.4-12.3) fL Immature Gran % (Auto) % Neut % (Auto) % Lymph % (Auto) % Coos % (Auto) % Eos % (Auto) % Baso % (Auto) % Neut # (Auto) (1.4-6.5) K/uL Lymph # (Auto) (1.2-3.4) K/uL Coos # (Auto) (0.24-0.82) K/uL Eos # (Auto) (0-0.50) K/uL Baso # (Auto) (0-0.2) K/uL Immature Gran # (Auto) (0.00-0.02) K/uL Sodium (136-145) mmol/L Potassium (3.5-5.1) mmol/L Chloride (98-107) mmol/L Carbon Dioxide (21-32) mmol/L Anion Gap (3-11) BUN (6-23) mg/dl Creatinine (0.6-1.2) mg/dl Est Cr Clr Drug Dosing ml/min Est GFR ( Amer) ml/min Est GFR (Non-Af Amer) ml/min BUN/Creatinine Ratio (10-20) Glucose (70-99(Fasting)) mg/dl Calcium (8.5-10.1) mg/dl Magnesium (1.7-2.4) mg/dl Total Bilirubin (0.2-1.0) mg/dl AST (13-39) U/L ALT (7-52) U/L Alkaline Phosphatase (34-104) U/L Troponin I High Sens (0-14) pg/ml B-Natriuretic Peptide (0-100) pg/ml Total Protein (6.0-8.3) gm/dl Albumin (3.4-5.0) gm/dl Globulin (2.5-4.0) gm/dl Albumin/Globulin Ratio (0.9-2) Urine Color Dark Yellow Urine Appearance Cloudy A (Clear) Urine pH 6.0 (4.5-7.5) Ur Specific Chester 1.027 (1.000-1.030) Urine Protein 2+ H (Negative) Urine Glucose (UA) 1+ H (Negative) Urine Ketones 1+ H (Negative) Urine Blood Negative (Negative) Urine Nitrite Negative (Negative) Urine Bilirubin 1+ H (Negative) Urine Urobilinogen Negative (Negative) Ur Leukocyte Esterase 1+ H (Negative) Urine WBC (Auto) >30 H (0-5) /hpf Urine RBC (Auto) 0-4 (0-4) /hpf U Hyaline Cast (Auto) 1-5 (0-5) /lpf U Epithel Cells (Auto) >30 H (0-5) /lpf Urine Bacteria (Auto) 2+ H (Negative) Urine Mucus Present A (None Prsent) SARS-CoV-2, RNA, NAAT NEGATIVE (NEGATIVE) Administered Medications Gabapentin (Gabapentin 400 Mg Cap) 400 mg PO TID [facility] Stop: 03/08/22 14:55 Last Admin: 02/06/22 16:09 Dose: 400 mg Documented By: MADIHA Gabapentin (Gabapentin 300 Mg Cap) 300 mg PO TID [facility] Stop: 03/08/22 14:55 Last Admin: 02/06/22 16:09 Dose: 300 mg Documented By: MADIHA Insulin Aspart (Insulin Aspart Per Unit) 0 units SC ACHS [facility] Stop: 03/08/22 16:29 Last Admin: 02/06/22 17:21 Dose: Not Given Documented By: MADIHA Miscellaneous (Alendronate- Order Awaiting Action) 1 each N/A QS [facility] Stop: 03/08/22 15:59 Last Admin: 02/06/22 16:14 Dose: Not Given Documented By: MADIHA Rivaroxaban (Rivaroxaban 15 Mg Tab) 15 mg PO DAILY@1700 [facility] Stop: 03/08/22 16:59 Last Admin: 02/06/22 16:13 Dose: 15 mg Documented By: MADIHA Rosuvastatin Calcium (Rosuvastatin Calcium 20 Mg Tab) 40 mg PO DAILY [facility] Stop: 03/08/22 14:55 Last Admin: 02/06/22 16:08 Dose: 40 mg Documented By: MADIHA Discontinued Medications Ceftriaxone Sodium (Rocephin) 2,000 mg in 70 mls @ 140 mls/hr IV NOW STA Stop: 02/06/22 13:52 Last Infusion: 02/06/22 14:12 Dose: 0 mls/hr Documented By: Admin: 02/06/22 13:33 Dose: 140 mls/hr Documented By: GAYLA Lorazepam (Lorazepam 1 Mg Tab) 1 mg SL NOW STA Stop: 02/06/22 11:22 Last Admin: 02/06/22 11:51 Dose: 1 mg Documented By: GAYLA Metoprolol Tartrate (Metoprolol Tartrate 25 Mg Tab) 25 mg PO ONE ONE Stop: 02/06/22 14:20 Last Admin: 02/06/22 14:29 Dose: 25 mg Documented By: GAYLA Non-Formulary Medication (Omeprazole) 20 mg PO DAILY KATIA Stop: 03/08/22 14:55 Last Admin: 02/06/22 15:11 Dose: Not Given Documented By: SML Potassium Chloride (Potassium Chloride Crtab 20 Meq Tabcr) 20 meq PO NOW STA Stop: 02/06/22 13:24 Last Admin: 02/06/22 13:33 Dose: 20 meq Documented By: GAYLA Imaging Data Radiologist's Impression: Chest X-Ray 02/06/22 11:06 XR chest 1V portable CLINICAL HISTORY: Dyspnea TECHNIQUE: Single frontal radiograph of the chest was obtained. Comparison: Comparison is made to chest radiograph 02/01/2022 FINDINGS: No lines and tubes are seen. The cardiomediastinal silhouette is normal. The lungs are clear. No evidence of pleural effusion or pneumothorax. IMPRESSION: No acute chest disease. ACT 112: Negative or not required by law. Electronically signed by: Wilian Ferrari M.D. 02/06/2022 11:33 AM Discharge Plan Visit Data Chief Complaint: Arrhythmia/Palpitations Stated Complaint: DIZZINESS, ED Provider: Holland Crum Discharge Problem: Acute dyspnea, Heart palpitations, Lightheadedness Patient Disposition: Admitted As Inpatient Discharge Instructions Interventions: ED Discharge Assessment Last Done: 02/06/22 14:32
--- NOTE | 2022-02-06 11:35 | XRay Report ---
XR chest 1V portable CLINICAL HISTORY: Dyspnea TECHNIQUE: Single frontal radiograph of the chest was obtained. Comparison: Comparison is made to chest radiograph 02/01/2022 FINDINGS: No lines and tubes are seen. The cardiomediastinal silhouette is normal. The lungs are clear. No evid ence of pleural effusion or pneumothorax. IMPRESSION: No acute chest disease. ACT 112: Negative or not required by law. Electronically signed by: Wilian Ferrari M.D. 02/06/2022 11:33 AM
[2022-02-06 12:13] LABS: Basophils # (auto) 0.11 K/uL (0-0.2); Basophils % (auto) 0.8 %; Eosinophils # (auto) 0.22 K/uL (0-0.50); Eosinophils % (auto) 1.6 %; Hematocrit (blood only) 41.1 % (34.1-44.9); Hemoglobin 14.4 g/dl (12.0-16.0); Immature Granulocytes # (auto) 0.09 K/uL (0.00-0.02); Immature Granulocytes % (auto) 0.7 %; Lymphocytes # (auto) 2.03 K/uL (1.2-3.4); Lymphocytes % (auto) 14.9 %; Mean Corpuscular Volume 94.1 fL (80.0-100.0); Mean Platelet Volume 10.4 fL (9.4-12.3); Monocytes # (auto) 1.13 K/uL (0.24-0.82); Monocytes % (auto) 8.3 %; Neutrophils # (auto) 10.06 K/uL (1.4-6.5); Neutrophils % (auto) 73.7 %; Platelet Count 297 K/uL (130-400); RDW Coefficient of Variation 12.5 % (11.5-14.5); Red Blood Count 4.37 M/uL (3.93-5.22); White Blood Count 13.64 K/ul (4.8-10.8)
[2022-02-06 12:23] LABS: Appearance Urine Cloudy (Clear); Bacteria Urine Automated 2+ (Negative); Blood Urine Negative (Negative); Color Urine Dark Yellow; Epithelial Cell Urine Auto >30 /lpf (0-5); Glucose Urine UA 1+ (Negative); Ketones Urine 1+ (Negative); Leukocyte Esterase Urine 1+ (Negative); Nitrite Urine Negative (Negative); Protein Urine 2+ (Negative); RBC Urine Automated 0-4 /hpf (0-4); Specific Gravity Urine 1.027 (1.000-1.030); Urobilinogen Urine Negative (Negative); WBC Urine Automated >30 /hpf (0-5)
[2022-02-06 12:24] LABS: Bilirubin Urine 1+ (Negative)
[2022-02-06 12:36] LABS: Mucus Urine Present (None Prsent)
[2022-02-06 12:38] LABS: Albumin Globulin Ratio 1.4 (0.9-2); Albumin Level 4.3 gm/dl (3.4-5.0); BUN Creatinine Ratio 11.3 (10-20); Bilirubin,Total 0.9 mg/dl (0.2-1.0); Calcium 10.1 mg/dl (8.5-10.1); Creatinine Clr Calc Pharmacy 36.2 ml/min; Est GFR (African American) 41.6 ml/min; Est GFR (Non-African American) 35.9 ml/min; Potassium 3.3 mmol/L (3.5-5.1); Total Protein 7.3 gm/dl (6.0-8.3)
[2022-02-06 12:39] LABS: Troponin I High Sensitivity 14.7 pg/ml (0-14)
[2022-02-06] MEDS ORDERED: cefTRIAXone SODIUM 2,000 MG/70 ML BAG IV STA (13:23)
[2022-02-06] MEDS ORDERED: POTASSIUM CHLORIDE CRTAB 20 MEQ TABCR PO STA (13:23)
--- NOTE | 2022-02-06 14:00 | History & Physical Report ---
Date of Service February 06, 2022 Assessment & Plan (1) Heart palpitations: Plan: Palpitations with symptoms that she feels are consistent of when she is afib- however ECG at PCP and at arrival in EMD reveal NSR, but was tachycardic on arrival to PCP - may or not be related to afib - will place on telemetry evaluate rythm - will re-introduce metoprolol tartrate 25mg PO q8 hours with hold parameters- she was previously on Succinate 100mg orally daily - continue with Xarelto- give dose now as she has not taken this yet this morning - Appreciate cardiology evaluation- she was to have appointment next week with Dr. Turcios - contributing events possibly UTI and ETHO withdraw however this would be ~ 5 days out from last drink so possible - AAWS at risk protocol - replete k - mg ~ 2.0 (2) Diabetes mellitus, type II: Plan: place on sliding scale <180mg/dl (3) HTN (hypertension): Plan: continue lasix re-intiate BB follow (4) HLD (hyperlipidemia): Plan: Continue rosuvastatin 40mg daily (5) H/O alcohol abuse: Plan: 1 bottle of wine per day reported - continue with ativan at risk protocol - continue home gabapentin (6) Depression: Plan: Continue duloxetine 60mg daily (7) Elevated troponin I level: Plan: likely related to talchycardia this morning type II demand - continue to trend - rate controlled now - as above bb initated (8) GERD (gastroesophageal reflux disease): Plan: continue PPI (9) Asthma: Plan: Well controlled per patient continue with CARRIE prn History of Present Illness Primary Care Provider: Luis M Valle MD 66 YOF with medical history of: PAF, Bradycardia, Alcohol misuse, HTN, Depression, GERD, Asthma, CKD, symptomatic bradycardia. Patient comes to the EMD today for complaints of palpitations and generalized weakness. Patient states that last night her palpitations started and she had symptoms that were to her consistent of what she feels like when she is in Afib. This was associated with hot feeling of her neck, sweatiness of her eyelids, and fatigue. She denies any chest pain. She had a follow up appointment with her PCP today so she got herself up and tried to get to this. When she got there she felt exhausted getting up the stairs and inside. Her vitals were taken at that time with HR 128 and evaluated 10 min later with decrease of her hR to 90s. Her BP was stable and she was referred to the [facility] for evaluation. In the EMD the patient had routine labs performed to include HScTNI and UA. ECG and CXR. She was noted to have mild increase in her WBC count to 13 and UA with bacteria as well as many epithelial cells. She was given a dose of Rocephin for this. She was given Ativan by EMD for concerns of ETOH withdraw. [place] [facility] [place] discharged on 02/04 with bradycardia. Her last drink was last week prior to her previous admission. She states that she generally felt well following her discharge until last night. Patient will be admitted to telemetry to follow her rhythm. Will continue her Rocephin until her culture returns, place on AWWS protocol, will restart her Metoprolol. Cardiology consultation placed for evaluation of +/- Flecainide as well as +/- BB. COVID test on admission is: NEGATIVE Allergies Allergy/AdvReac Type Severity Reaction Status Date / Time citalopram [From Celexa] AdvReac Mild Diarrhea Verified 12/10/21 09:54 metformin AdvReac Mild Diarrhea Verified 12/10/21 09:54 Home Medications Medication Instructions Recorded Confirmed Type omeprazole 20 mg capsule,delayed 20 mg PO DAILY PRN reflux 02/16/19 02/06/22 History release albuterol sulfate 90 mcg/actuation 2 puffs inhalation Q6H PRN 08/30/19 02/06/22 Rx aerosol inhaler (Ventolin HFA) shortness of breath or wheezing #8.5 grams ibuprofen 200 mg tablet 400 mg PO Q6H PRN night sweats 11/21/19 02/06/22 History gabapentin 300 mg capsule 300 mg PO TID #270 caps 12/29/19 02/06/22 Rx amlodipine 5 mg tablet 5 mg PO QAM 06/22/21 02/06/22 History tramadol 50 mg tablet 50 mg PO Q8H PRN pain #30 tabs 08/01/21 02/06/22 Rx rivaroxaban 20 mg tablet (Xarelto) 20 mg PO DAILY #90 tabs 08/14/21 02/06/22 Rx duloxetine 60 mg capsule,delayed 60 mg PO QAM #90 caps 08/27/21 02/06/22 Rx release (Cymbalta) gabapentin 400 mg capsule 400 mg PO TID #270 caps 09/04/21 02/06/22 Rx rosuvastatin 40 mg tablet 40 mg PO DAILY #90 tabs 09/26/21 02/06/22 Rx alendronate 35 mg tablet 35 mg PO .COMPLEX #12 tabs 10/16/21 02/06/22 Rx furosemide 20 mg tablet See Rx Instructions .Route 11/28/21 02/06/22 Rx .COMPLEX #60 tabs potassium chloride 20 mEq See Rx Instructions .Route 11/28/21 02/06/22 Rx tablet,extended release .COMPLEX #30 tabs Past Med/Surg History Medical History Anxiety Asthma inhaler prn Depression Diabetes mellitus, type II NIDDM--currently diet controlled GERD (gastroesophageal reflux disease) H/O alcohol abuse HLD (hyperlipidemia) HTN (hypertension) Medical marijuana use Paroxysmal atrial fibrillation Dx'ed Feb 2021 - on Xarelto Peripheral neuropathy medical [facility] Right foot pain Tubular adenoma Urinary incontinence Surgical History History of ankle surgery Status post right ankle ORIF 11/26/19 to repair bimalleolar fracture - Dr Johnson History of appendectomy History of cardiac cath (~08/29/17) no stents History of colonoscopy with polypectomy History of tubal ligation Status post LASIK surgery Family History Mother Breast cancer Grandmother Stroke Grandfather Lung cancer Aunt Eye cancer Father Alcoholism Anxiety Depression Brother Anxiety Depression Unknown Alcoholism Other No family history of adverse response to anesthesia Denies family history of Ovarian cancer Colorectal cancer Social History Smoking Status: Former smoker Tobacco Type: Cigarettes Second Hand Exposure: No; Do You Dip or Chew Tobacco: No; Hx Alcohol Use: Yes Alcohol type: wine Hx Substance Use: No Preferred Language: Turkmen Communication Ability: Effective Visual Impairment: No Limitations Hearing Ability: Normal Sales Account Specialist Required: No Beliefs That Will Affect Care: None marital status: Current Living Situation: Alone Current Living Situation Comment: Lives alone current occupational status: retired Other Information That Helps Us Care for You: No Feels Safe at Home: Yes Safety Concerns: Feels Safe At This Time Childhood Exposure to Second-Hand Smoke: Yes Diet Comment: eats less meats caffeine: Yes Dental Care, Regularly: Yes Physical Activity Frequency: 1-2 Times per Week Seatbelt Use: always Sunscreen Use: Yes Assistive Devices: Glasses and Walker Assistive Devices Comment: States she does not use it. Review of Systems Review of Systems: REVIEW OF SYSTEMS: Constitutional: (+) flushing and warm feelings, fatigue Eyes: No diplopia, no worsening or blurred vision ENT: normal hearing, no trouble swallowing Respiratory: No cough, sputum, dyspnea at rest or on exertion Cardiovascular: (+) palpitations, No chest pain, tightness or palpitations Abdomen: No pain, nausea, vomiting, diarrhea or constipation Musculoskeletal: No joint pain, calf pain, swelling Neurologic: No weakness, numbness/tingling, or balance problems Psychiatric: (+) depression, Skin: No rash or itch Physical Exam Physical Exam: PHYSICAL EXAM: General: awake, alert, no apparent distress Head: Normocephalic, atraumatic ENT: PERRL, EOMI, no pharyngeal exudate, mucous membranes moist Neuro: AAO x 3, speech clear and appropriate, strength intact bilaterally 5/5, sensation intact and equal all extremities and dermatomes, no pronator drift Chest: equal rise and fall of the chest, no accessory muscle use, no heaves or thrills, Clear to auscultation, on room air, Cardiac: Regular rate and rhythm, telemetry reviewed, skin warm dry, cap refill <3 seconds, peripheral pulses +2 no JVD, GI: NABS x 4 quadrants, soft, nontender to palpation, no rebound, guarding or tenderness : Spontaneously voiding, no pain, no CVA tenderness, Extremities: Normal inspection, no peripheral edema or erythema, calfs nontender to palpation Psych: Normal mood and affect Skin: flushing in the face Results & Data Results & Data ([facility]) Vital Signs (Past 12 Hours) Vital Signs Temp Pulse Pulse Resp BP BP Pulse Ox 02/06/22 13:00 81 18 144/84 H 98 02/06/22 10:35 99 02/06/22 10:35 02/06/22 10:36 36.8 C 80 20 143/95 H 99 O2 Del Method 02/06/22 13:00 Room Air 02/06/22 10:35 Room Air 02/06/22 10:35 Room Air 02/06/22 10:36 Room Air Laboratory Results Abnormal lab results 02/06/22 02/06/22 02/06/22 Range/Units 11:45 11:45 11:45 WBC 13.64 H (4.8-10.8) K/ul Neut # (Auto) 10.06 H (1.4-6.5) K/uL [place] # (Auto) 1.13 H (0.24-0.82) K/uL Immature Gran # (Auto) 0.09 H (0.00-0.02) K/uL Potassium 3.3 L (3.5-5.1) mmol/L Chloride 108 H (98-107) mmol/L Carbon Dioxide 19 L (21-32) mmol/L Anion Gap 13 H (3-11) Creatinine 1.50 H (0.6-1.2) mg/dl Glucose 142 H (70-99(Fasting)) mg/dl Troponin I High Sens 14.7 H D (0-14) pg/ml B-Natriuretic Peptide 124 H (0-100) pg/ml Urine Appearance (Clear) Urine Protein (Negative) Urine Glucose (UA) (Negative) Urine Ketones (Negative) Urine Bilirubin (Negative) Ur Leukocyte Esterase (Negative) Urine WBC (Auto) (0-5) /hpf U Epithel Cells (Auto) (0-5) /lpf Urine Bacteria (Auto) (Negative) Urine Mucus (None Prsent) 02/06/22 Range/Units 11:45 WBC (4.8-10.8) K/ul Neut # (Auto) (1.4-6.5) K/uL [place] # (Auto) (0.24-0.82) K/uL Immature Gran # (Auto) (0.00-0.02) K/uL Potassium (3.5-5.1) mmol/L Chloride (98-107) mmol/L Carbon Dioxide (21-32) mmol/L Anion Gap (3-11) Creatinine (0.6-1.2) mg/dl Glucose (70-99(Fasting)) mg/dl Troponin I High Sens (0-14) pg/ml B-Natriuretic Peptide (0-100) pg/ml Urine Appearance Cloudy A (Clear) Urine Protein 2+ H (Negative) Urine Glucose (UA) 1+ H (Negative) Urine Ketones 1+ H (Negative) Urine Bilirubin 1+ H (Negative) Ur Leukocyte Esterase 1+ H (Negative) Urine WBC (Auto) >30 H (0-5) /hpf U Epithel Cells (Auto) >30 H (0-5) /lpf Urine Bacteria (Auto) 2+ H (Negative) Urine Mucus Present A (None Prsent) Diagnostic Findings Chest X-Ray 02/06/22 11:06 XR chest 1V portable CLINICAL HISTORY: Dyspnea TECHNIQUE: Single frontal radiograph of the chest was obtained. Comparison: Comparison is made to chest radiograph 02/01/2022 FINDINGS: No lines and tubes are seen. The cardiomediastinal silhouette is normal. The lungs are clear. No evidence of pleural effusion or pneumothorax. IMPRESSION: No acute chest disease. ACT 112: Negative or not required by law. Electronically signed by: Wilian Ferrari M.D. 02/06/2022 11:33 AM Medications Administered Home Medications omeprazole 20 mg capsule,delayed release 20 mg PO DAILY PRN reflux 02/16/19 [History Confirmed 02/06/22] albuterol sulfate 90 mcg/actuation aerosol inhaler (Ventolin HFA) 2 puffs inhalation Q6H PRN shortness of breath or wheezing #8.5 grams 08/30/19 [Rx Conf irmed 02/06/22] ibuprofen 200 mg tablet 400 mg PO Q6H PRN night sweats 11/21/19 [History Confirmed 02/06/22] gabapentin 300 mg capsule 300 mg PO TID #270 caps 12/29/19 [Rx Confirmed 02/06/22] amlodipine 5 mg tablet 5 mg PO QAM 06/22/21 [History Confirmed 02/06/22] tramadol 50 mg tablet 50 mg PO Q8H PRN pain #30 tabs 08/01/21 [Rx Confirmed 02/06/22] rivaroxaban 20 mg tablet (Xarelto) 20 mg PO DAILY #90 tabs 08/14/21 [Rx Confirmed 02/06/22] duloxetine 60 mg capsule,delayed release (Cymbalta) 60 mg PO QAM #90 caps 08/27/21 [Rx Confirmed 02/06/22] gabapentin 400 mg capsule 400 mg PO TID #270 caps 09/04/21 [Rx Confirmed 02/06/22] rosuvastatin 40 mg tablet 40 mg PO DAILY #90 tabs 09/26/21 [Rx Confirmed 02/06/22] alendronate 35 mg tablet 35 mg PO .COMPLEX #12 tabs 10/16/21 [Rx Confirmed 02/06/22] furosemide 20 mg tablet See Rx Instructions .Route .COMPLEX #60 tabs 11/28/21 [Rx Confirmed 02/06/22] potassium chloride 20 mEq tablet,extended release See Rx Instructions .Route .COMPLEX #30 tabs 11/28/21 [Rx Confirmed 02/06/22] Active Medications Metoprolol Tartrate (Metoprolol Tartrate 25 Mg Tab) 25 mg PO ONE ONE Stop: 02/06/22 14:20 Discontinued Medications Ceftriaxone Sodium (Rocephin) 2,000 mg in 70 mls @ 140 mls/hr IV NOW STA Stop: 02/06/22 13:52 Last Infusion: 02/06/22 14:12 Dose: 0 mls/hr Documented By: Admin: 02/06/22 13:33 Dose: 140 mls/hr Documented By: GAYLA Lorazepam (Lorazepam 1 Mg Tab) 1 mg SL NOW STA Stop: 02/06/22 11:22 Last Admin: 02/06/22 11:51 Dose: 1 mg Documented By: GAYLA Potassium Chloride (Potassium Chloride Crtab 20 Meq Tabcr) 20 meq PO NOW STA Stop: 02/06/22 13:24 Last Admin: 02/06/22 13:33 Dose: 20 meq Documented By: GAYLA ECG Additional Comments: ECG: NSR SD 144 QRS 84 Qtc 404/457 Code Status & VTE Plan Code Status CODE: FULL VTE: SCDS, Xarelto VTE Prophylaxis Plan VTE Prophylaxis will be ordered: Yes Supervising Physician Co-Signing Physician Notes Records reviewed, I did discuss the case with SEMICONDUCTOR EQUIPMENT TECHNICIAN. Agree with his note above. Patient is here complaining of intermittent heart palpitations. May be related to her atrial fibrillation. Patient was started on metoprolol. She is already on blood thinners with Xarelto. Await cardiology evaluation. Treatment of UTI. PG Care Time/CCT Total # of Minutes Spent Total Time Spent with Patient: Total time spent is greater than 50% in coordination of care (as documented) at patient's floor/unit and/or counseling patient: Coding Level of Care Code INT OBSERVATION CARE 70M LVL 3 Diagnoses Heart palpitations R00.2 Diabetes mellitus, type II E11.9 HTN (hypertension) I10 Hypertension type: primary hypertension HLD (hyperlipidemia) E78.5 H/O alcohol abuse Z87.898 Depression F32.9 Elevated troponin I level R74.8 GERD (gastroesophageal reflux disease) K21.9 Asthma J45.909 (1) HTN (hypertension) Hypertension type: primary hypertension Qualified Code(s): I10 - Essential (primary) hypertension
[2022-02-06] MEDS ORDERED: METOPROLOL TARTRATE 25 MG TAB PO ONE (14:19)
[2022-02-06] MEDS ORDERED: traMADol HCL 50 MG TABLET PO PRN (14:56)
[2022-02-06] MEDS ORDERED: NON-FORMULARY MEDICATION (Omeprazole 20 mg capsule,delayed release(DR/EC)) PO SCH (14:56)
[2022-02-06] MEDS ORDERED: LORazepam 1 MG TAB PO PRN (14:56)
[2022-02-06] MEDS ORDERED: ACETAMINOPHEN 325 MG TAB PO PRN (14:56)
[2022-02-06] MEDS ORDERED: ALBUTEROL HFA 8 GM INHALER INH PRN (14:56)
[2022-02-06] MEDS ORDERED: GLUCOSE 40% GEL 15 GM TUBE PO PRN (15:56)
[2022-02-06] MEDS ORDERED: GLUCAGON FOR INJ 1 MG VIAL SQ PRN (15:56)
[2022-02-06] MEDS ORDERED: GLUCOSE 10 TAB/TUBE PO PRN (15:56)
[2022-02-06] MEDS ORDERED: CARBOHYDRATES FOR HYPOGLYCEMIA PO PRN (15:56)
[2022-02-06] MEDS ORDERED: DEXTROSE 50% 50 ML SYRINGE IV PRN (15:56)
[2022-02-06] MEDS: ROSUVASTATIN CALCIUM 20 MG TAB PO SCH (16:08)
[2022-02-06] MEDS: GABAPENTIN 400 MG CAP PO SCH ×2 (16:09→21:08)
[2022-02-06] MEDS: GABAPENTIN 300 MG CAP PO SCH ×2 (16:09→21:09)
[2022-02-06] MEDS ORDERED: RIVAROXABAN 15 MG TAB PO SCH (17:00)
[2022-02-06] MEDS: INSULIN ASPART PER UNIT SC SCH ×2 (17:21→21:08)
[2022-02-06] MEDS: METOPROLOL TARTRATE 25 MG TAB PO SCH (21:12)
[2022-02-07] MEDS: METOPROLOL TARTRATE 25 MG TAB PO SCH ×2 (06:19→12:22)
[2022-02-07 06:25] LABS: Basophils # (auto) 0.11 K/uL (0-0.2); Eosinophils # (auto) 0.45 K/uL (0-0.50); Eosinophils % (auto) 4.3 %; Hematocrit (blood only) 39.5 % (34.1-44.9); Hemoglobin 13.1 g/dl (12.0-16.0); Immature Granulocytes # (auto) 0.05 K/uL (0.00-0.02); Immature Granulocytes % (auto) 0.5 %; Lymphocytes # (auto) 2.01 K/uL (1.2-3.4); Mean Corpuscular Hemoglobin 32.3 pg (25.0-34.0); Mean Corpuscular Hgb Conc 33.2 g/dL (32.0-36.0); Mean Corpuscular Volume 97.3 fL (80.0-100.0); Mean Platelet Volume 10.4 fL (9.4-12.3); Monocytes # (auto) 1.05 K/uL (0.24-0.82); Monocytes % (auto) 9.9 %; Neutrophils # (auto) 6.89 K/uL (1.4-6.5); Neutrophils % (auto) 65.3 %; Platelet Count 243 K/uL (130-400); RDW Coefficient of Variation 12.9 % (11.5-14.5); RDW Standard Deviation 46.2 fL (36.4-46.3); Red Blood Count 4.06 M/uL (3.93-5.22); White Blood Count 10.56 K/ul (4.8-10.8)
[2022-02-07 06:49] LABS: BUN Creatinine Ratio 13.2 (10-20); Calcium 9.3 mg/dl (8.5-10.1); Creatinine Clr Calc Pharmacy 35.4 ml/min; Est GFR (Non-African American) 35.4 ml/min; Magnesium 2.1 mg/dl (1.7-2.4)
[2022-02-07] MEDS ORDERED: POTASSIUM CHLORIDE CRTAB 20 MEQ TABCR PO STA (08:02)
[2022-02-07] MEDS: INSULIN ASPART PER UNIT SC SCH ×2 (08:55→12:22)
[2022-02-07] MEDS: GABAPENTIN 300 MG CAP PO SCH (08:56)
[2022-02-07] MEDS: GABAPENTIN 400 MG CAP PO SCH (08:56)
[2022-02-07] MEDS: ROSUVASTATIN CALCIUM 20 MG TAB PO SCH (08:56)
[2022-02-07] MEDS ORDERED: amLODIPine BESYLATE 5 MG TAB PO SCH (09:00)
[2022-02-07] MEDS ORDERED: PANTOprazole 40 MG TAB PO SCH (09:00)
[2022-02-07] MEDS ORDERED: DULoxetine HCL 60 MG CAP PO SCH (09:00)
[2022-02-07] MEDS ORDERED: cefTRIAXone SODIUM 2,000 MG in DEXTROSE 5% 50 ML IV SCH (10:00)
--- NOTE | 2022-02-07 12:29 | Discharge Summary ---
Date of Service February 07, 2022 Admission HPI Per Admitting Provider 66 YOF with medical history of: PAF, Bradycardia, Alcohol misuse, HTN, Depression, GERD, Asthma, CKD, symptomatic bradycardia. Patient comes to the EMD today for complaints of palpitations and generalized weakness. Patient states that last night her palpitations started and she had symptoms that were to her consistent of what she feels like when she is in Afib. This was associated with hot feeling of her neck, sweatiness of her eyelids, and fatigue. She denies any chest pain. She had a follow up appointment with her PCP today so she got herself up and tried to get to this. When she got there she felt exh austed getting up the stairs and inside. Her vitals were taken at that time with HR 128 and evaluated 10 min later with decrease of her hR to 90s. Her BP was stable and she was referred to the EMD for evaluation. In the EMD the patient had routine labs performed to include HScTNI and UA. ECG and CXR. She was noted to have mild increase in her WBC count to 13 and UA with bacteria as well as many epithelial cells. She was given a dose of Rocephin for this. She was given Ativan by EMD for concerns of ETOH withdraw. Patient was previously admitted [place] [facility] [place] and discharged on 02/04 with bradycardia. Her last drink was last week prior to her previous admission. She states that she generally felt well following her discharge until last night. Patient will be admitted to telemetry to follow her rhythm. Will continue her Rocephin until her culture returns, place on AWWS protocol, will restart her Metoprolol. Cardiology consultation placed for evaluation of +/- Flecainide as well as +/- BB. COVID test on admission is: NEGATIVE Admission Exam (Per Admitting) Constitutional PHYSICAL EXAM: General: awake, alert, no apparent distress- symptoms much improved since admission Head: Normocephalic, atraumatic ENT: PERRL, EOMI, no pharyngeal exudate, mucous membranes moist Neuro: AAO x 3, speech clear and appropriate, strength intact bilaterally 5/5, sensation intact and equal all extremities and dermatomes, no pronator drift Chest: equal rise and fall of the chest, no accessory muscle use, no heaves or thrills, Clear to auscultation, on room air, Cardiac: Regular rate and rhythm, telemetry reviewed- NSR no ectopy no afib, skin warm dry, cap refill <3 seconds, peripheral pulses +2 no JVD, no murmur, no JVD, no edema GI: NABS x 4 quadrants, soft, nontender to palpation, no rebound, guarding or tenderness : Spontaneously voiding, no pain, no CVA tenderness, Extremities: Normal inspection, no peripheral edema or erythema, calfs nontender to palpation Psych: Normal mood and affect Skin: no rash or erythema Hospital Course (1) Heart palpitations: Palpitations with symptoms that she feels are consistent of when she is afib- however ECG at PCP and at arrival in EMD reveal NSR, but was tachycardic on arrival to PCP - may or not be related to afib - will place on telemetry evaluate rythm - will re-introduce metoprolol tartrate 25mg PO q8 hours with hold parameters- she was previously on Succinate 100mg orally daily - continue with Xarelto- give dose now as she has not taken this yet this morning - Appreciate cardiology evaluation- she was to have appointment next week with Dr. Turcios - contributing events possibly UTI and ETHO withdraw however this would be ~ 5 days out from last drink so possible - AAWS at risk protocol - replete k - mg ~ 2.0 Symptoms improved overnight without any palpitations or other symptoms she gets with these. She feels better. Will discharge on Metoprolol Succinate 50mg PO daily (2) Diabetes mellitus, type II: place on sliding scale <180mg/dl - Continue with diet modification (3) HTN (hypertension): continue lasix re-intiate BB follow (4) HLD (hyperlipidemia): Continue rosuvastatin 40mg daily (5) H/O alcohol abuse: 1 bottle of wine per day reported -Received 1 dose of Ativan here - continue home gabapentin -Advised to abstain or cut back from alcohol use (6) Depression: Continue duloxetine 60mg daily (7) Elevated troponin I level: likely related to tachycardia this morning type II demand - continue to trend - rate controlled now - as above bb initiated (8) GERD (gastroesophageal reflux disease): continue PPI (9) Asthma: Well controlled per patient continue with CARRIE prn Supervising Physician Co-Signing Physician Notes WOOD PANEL INSPECTOR Supervision note: I did not personally see or examine the patient but I did discuss and verify the georges points of the history and physical along with the plan with CULLEN Barrera with the following exceptions and/or additions: None Coding Level of Care Code 29247 OBS Care - Discharge Diagnoses Heart palpitations R00.2 Diabetes mellitus, type II E11.9 HTN (hypertension) I10 Hypertension type: primary hypertension HLD (hyperlipidemia) E78.5 H/O alcohol abuse Z87.898 Depression F32.9 Elevated troponin I level R74.8 GERD (gastroesophageal reflux disease) K21.9 Asthma J45.909
[2022-02-07] MEDS ORDERED: POTASSIUM CHLORIDE CRTAB 20 MEQ TABCR PO ONE (21:00)
--- NOTE | 2022-02-08 05:32 | Electrocardiogram Report ---
Test Reason : Blood Pressure : / mmHG Vent. Rate : 077 BPM Atrial Rate : 077 BPM P-R Int : 144 ms QRS Dur : 084 ms QT Int : 404 ms P-R-T Axes : 052 045 037 degrees QTc Int : 457 ms Normal sinus rhythm Normal ECG When compared with ECG of 03-FEB-2022 06:38, No significant change was found Confirmed by Wilian Logan ([id number]) on 02/08/2022 5:32:26 AM Referred By: REFERRED SELF Confirmed By:Wilian Logan
--- NOTE | 2022-02-08 22:06 | Electrocardiogram Report ---
Test Reason : Blood Pressure : / mmHG Vent. Rate : 064 BPM Atrial Rate : 064 BPM P-R Int : 144 ms QRS Dur : 084 ms QT Int : 464 ms P-R-T Axes : 066 066 060 degrees QTc Int : 478 ms Normal sinus rhythm Normal ECG When compared with ECG of 06-FEB-2022 10:46, No significant change was found Confirmed by Wilian Logan ([id number]) on 02/08/2022 10:06:25 PM Referred By: REFERRED SELF Confirmed By:Wilian Logan
== END 2022-02-07 14:08 | disposition home or self-care (01) ==
LOC: 2N 10:28 → ED 10:28 → SUATTDRO 13:57 → 2N 14:32